=== PATIENT | female | born 1945 | race Caucasian/White ===

== ENCOUNTER 2018-09-08 12:31 | Day surgery (SDC) | payer OTHER, SELFPAY ==
[2018-09-08 13:00] VITALS: BMI 28.3
[2018-09-08] MEDS: PROPARACAINE 0.5% OPHTH SOL 2 DROPS EYE-OP (13:08)
[2018-09-08] MEDS: CATARACT EYE COMPOUND (10 DROPS/SYRINGE) 3 DROPS EYE-OP (13:13)
[2018-09-08 13:18] VITALS: BP 159/72; PULSE 63; RESP 16; TEMP 36.1; O2SAT 95
--- NOTE | 2018-09-08 13:26 | P.OP.PRE_ITS ---
Pre-operative Note Interval Note Changes: No
--- NOTE | 2018-09-08 13:26 | P.OP_ITS ---
Operative Date/Time/Diagnoses Pre-op diagnosis: Nuclear Cataract Left eye Post-op diagnosis: same Procedure & Clinicians Surgeon: Olegario Gutierres Anesthesia Type: MAC +/- and Sedation Operative Notes Procedure in detail: Patient brought to the operating suite. Tetracaine drops placed in the left eye. Patient was prepped and draped in sterile manner. Wire lid speculum was placed in the eye. Betadine drops were placed on the eye. This was irrigated. Lidocaine jelly was placed on the eye. A paracentesis port was created with a side-port blade. 0.1 mL 1% preservative free lidocaine was injected into the anterior chamber. The anterior chamber was deepened with viscoelastic. 2.6 mm keratome was used to create a temporal clear corneal incision. Cystotome and Utrata forceps were used to create continuous tear capsulorrhexis. Balanced salt solution was used to hydro dissect the nucleus. The phacoemulsification handpiece was inserted and the nucleus was removed using the stop and chop technique. The irrigation aspiration handpiece was inserted and the remaining cortex was removed. Anterior chamber was deepened with viscoelastic. An Hinkle ZCB00 intraocular lens with a power of 17.0 was injected into the capsular bag. Irrigation aspiration handpiece was inserted and the remaining viscoelastic was removed. Incision was hydrated with balanced salt solution and found to be leak free with pressure with Weck- Faith sponges. 0.1 mL Vigamox injected anterior chamber. 0.3 mL Kenalog 10 mg was injected subconjunctivally. Lid speculum was removed. The patient left the operating room in excellent condition. Complications: none Condition: stable Disposition: same day surgery
--- NOTE | 2018-09-08 13:26 | PM.PREOP ---
Pre-operative Note Interval Note Changes: No
--- NOTE | 2018-09-08 13:40 | SUR.OPER ---
Supine on eye stretcher, head on extension cradle secured with tape. Arms tucked at sides with blanket. Pillow under knees.
[2018-09-08] MEDS: CHONDROIDTIN/SOD HYALURONATE 1.05 ML SYRINGE INTRAOCULA (13:42)
[2018-09-08] MEDS: MOXIFLOXACIN OPHTH DROPS 3 ML BOTTLE 2 DROPS INJ (13:42)
[2018-09-08] MEDS: LIDOCAINE JELLY 2% 5 ML 1 APPLIC TOP (13:42)
[2018-09-08] MEDS: PHENYLEPHRINE/LIDOCAINE VIAL (OR) 0.2 ML EYE-OP (13:42)
[2018-09-08] MEDS: TRIAMCINOLONE 50 MG/5 ML VIAL INJ (13:43)
[2018-09-08] MEDS: TETRACAINE 0.5% OPHTH DROPS 15 ML 2 DROPS EYE-LEFT (13:43)
[2018-09-08] MEDS: BALANCED SALT IRRIG SOLN NO.2 500 ML, EPINEPHrine 1 MG IRR (13:43)
[2018-09-08 13:55] VITALS: BP 137/74; PULSE 61; RESP 15; TEMP 36.2; O2SAT 96
== END 2018-09-08 14:15 | disposition home or self-care (01) ==
LOC: OR 12:33
PROVIDERS: PCP Physician Assistant Medical; Visit Provider Ophthalmology
DX: H25.12 Age-related nuclear cataract, left eye (principal); J45.909 Unspecified asthma, uncomplicated; I10 Essential (primary) hypertension
CPT/HCPCS: J0171; J2250; J3010; J3301

== ENCOUNTER 2018-09-22 07:58 | Day surgery (SDC) | payer OTHER, SELFPAY ==
[2018-09-22 08:40] VITALS: BP 148/72; PULSE 63; RESP 16; TEMP 36.2; O2SAT 98; BMI 28.3
[2018-09-22] MEDS: PROPARACAINE 0.5% OPHTH SOL 2 DROPS EYE-OP (08:44)
[2018-09-22] MEDS: CATARACT EYE COMPOUND (10 DROPS/SYRINGE) 3 DROPS EYE-OP (08:45)
--- NOTE | 2018-09-22 09:43 | P.OP.PRE_ITS ---
Pre-operative Note Interval Note Changes: No
--- NOTE | 2018-09-22 09:43 | PM.PREOP ---
Pre-operative Note Interval Note Changes: No
--- NOTE | 2018-09-22 09:44 | P.OP_ITS ---
Operative Date/Time/Diagnoses Pre-op diagnosis: Nuclear cataract right eye Procedure & Clinicians Procedure: Cataract Surgery Same procedure as scheduled: Yes Surgeon: Olegario Gutierres Anesthesia Type: MAC +/- and Sedation Operative Notes Procedure in detail: Patient brought to the operating suite. Tetracaine drops placed in the right eye. Patient was prepped and draped in sterile manner. Wire lid speculum was placed in the eye. Betadine drops were placed on the eye. This was irrigated. Lidocaine jelly was placed on the eye. A paracentesis port was created with a side-port blade. 0.1 mL 1% preservative free lidocaine was injected into the anterior chamber. The anterior chamber was deepened with viscoelastic. 2.6 mm keratome was used to create a temporal clear corneal incision. Cystotome and Utrata forceps were used to create continuous tear capsulorrhexis. Balanced salt solution was used to hydro dissect the nucleus. The phacoemulsification handpiece was inserted and the nucleus was removed using the stop and chop technique. The irrigation aspiration handpiece was inserted and the remaining cortex was removed. Anterior chamber was deepened with viscoelastic. An Hinkle ZCB00 intraocular lens with a power of 16.5 was injected into the capsular bag. Irrigation aspiration handpiece was inserted and the remaining viscoelastic was removed. Incision was hydrated with balanced salt solution and found to be leak free with pressure with Weck- Faith sponges. 0.1 mL Vigamox injected anterior chamber. 0.3 mL Kenalog 10 mg was injected subconjunctivally. Lid speculum was removed. The patient left the operating room in excellent condition. Complications: none Condition: stable Disposition: same day surgery
--- NOTE | 2018-09-22 09:55 | SUR.OPER ---
Supine on eye stretcher, head on extension cradle secured with tape. Arms tucked at sides with blanket. Pillow under knees.
[2018-09-22] MEDS: CHONDROIDTIN/SOD HYALURONATE 1.05 ML SYRINGE INTRAOCULA (09:58)
[2018-09-22] MEDS: LIDOCAINE JELLY 2% 5 ML 1 APPLIC TOP (09:58)
[2018-09-22] MEDS: MOXIFLOXACIN OPHTH DROPS 3 ML BOTTLE 2 DROPS INJ (09:58)
[2018-09-22] MEDS: PHENYLEPHRINE/LIDOCAINE VIAL (OR) 0.2 ML EYE-OP (09:59)
[2018-09-22] MEDS: TETRACAINE 0.5% OPHTH DROPS 15 ML 2 DROPS EYE-RIGHT (09:59)
[2018-09-22] MEDS: TRIAMCINOLONE 50 MG/5 ML VIAL INJ (09:59)
[2018-09-22] MEDS: BALANCED SALT IRRIG SOLN NO.2 500 ML, EPINEPHrine 1 MG IRR (10:00)
[2018-09-22 10:09] VITALS: BP 147/70; PULSE 60; RESP 16; TEMP 36.2; O2SAT 97
[2018-09-22 10:28] VITALS: BP 131/71; PULSE 58; RESP 16; TEMP 37.1; O2SAT 97
== END 2018-09-22 10:36 ==
LOC: OR 07:59
PROVIDERS: PCP Physician Assistant Medical; Visit Provider Ophthalmology
DX: H25.11 Age-related nuclear cataract, right eye (principal); I10 Essential (primary) hypertension; J45.909 Unspecified asthma, uncomplicated
CPT/HCPCS: J0171; J2250; J3010; J3301

== ENCOUNTER 2019-03-03 19:28 | Observation (INO) | payer OTHER, SELFPAY ==
--- NOTE | 2019-03-03 | DI.MRI.S_ITS ---
PROCEDURE: MR STROKE Pre- and post-contrast brain MRI, non-contrast brain MR angiogram, pre- and postcontrast neck MR angiogram INDICATIONS: TIA, TIA, left hand and arm weakness TECHNIQUE: Brain: Noncontrast axial T1 spin echo, axial T2 fast spin echo, sagittal and axial FLAIR, coronal T2 fast spin echo, axial gradient echo, axial diffusion and ADC through the brain. After the administration of contrast, axial 3D VIBE of the cranial vasculature and brain. Brain MRA: Non-contrast 3-D time of flight MR angiogram, with multiple osaurjn-fszwhnkzo-ivqnkuroas (MIP) reformats performed. Neck MRA: Axial and sagittal TruFISP through the neck. Coronal dynamic MR angiogram during administration of contrast in the arterial and venous phases, with 3-dimenstional nwprxpw-brikzkfea-vbrbznqcqe (MIP) reformats constructed from subtraction images. COMPARISON: [facility], CT, CT HEAD/BRAIN WO CON, 03/03/2019, 19:49. FINDINGS: Image quality: Diagnostic, with note made of motion artifact. BRAIN: CSF spaces: Ventricles are normal in size and shape. Basal cisterns are patent. No extra-axial fluid collections. Brain: There is a small area of abnormal diffusion weighted signal within the posterior superior right frontal lobe, as on series 26 image 60. There is associated dark signal seen on the ADC map. There is developing T2-weighted signal seen within this region. Scattered areas of T2 hyperintensity can be seen. Age-appropriate brain parenchymal volume loss is seen. No intracranial bleeds or mass effects. Mar-white matter interface is normal. Brainstem appears normal. Normal intravascular flow voids are present. No abnormal intracranial enhancement. Skull and face: Calvarial marrow signal is normal. Orbits appear normal. Note is made of bilateral lens replacements. Sinuses: Sinuses and mastoids are clear. BRAIN MR ANGIOGRAM: Anterior circulation: Intracranial internal carotid arteries are normal in size and enhancement. There is a diminutive left A1 segment, with a corresponding robust right A1 segment. This is considered to be a normal developmental variant of the [place] of [place], of typically no clinical consequence. The flow within the paired anterior cerebral arteries is otherwise normal and symmetric. The flow within the middle cerebral arteries is normal and symmetric. The anterior communicating artery is seen. No stenoses, occlusions, or aneurysms. Posterior circulation: The visualized portions of the vertebral arteries demonstrate normal caliber, and join to form a normal appearing basilar artery. The flow within the posterior cerebral arteries is normal and symmetric. No stenoses, occlusions, or aneurysms. NECK MR ANGIOGRAM: Carotids: Great vessels demonstrate a conventional anatomy as they arise from the aortic arch. The origins of the common carotid arteries appear patent. The proximal left common carotid artery is not well-seen. The bifurcation regions appear normal bilaterally. The internal carotid arteries demonstrate normal course and caliber. Posterior circulation: The origins of the vertebral arteries appear patent. More superior portions of both vertebral arteries demonstrate normal course and caliber, and join to form a normal appearing basilar artery. Miscellaneous: Subclavian arteries appear patent. Pre-contrast images through the neck show no soft tissue abnormalities. IMPRESSION: BRAIN MRI: Small focus of subacute infarction involving posterior right frontal lobe superiorly. This correlates well with the left upper extremity symptoms. Note is made of age-appropriate brain parenchymal volume loss and chronic small vessel ischemic changes. BRAIN MR ANGIOGRAM: No significant intracranial arterial abnormality is seen. NECK MR ANGIOGRAM: The proximal left common carotid artery is not well-seen. This is felt most likely to be artifactual, although differential diagnosis includes a focal stenosis. As clinically appropriate, please consider a dedicated CT angiogram for further evaluation. Dictated by: Bry Ennis M.D. on 03/04/2019 at 10:13 Approved by: Bry Ennis M.D. on 03/04/2019 at 10:18
--- NOTE | 2019-03-03 | DI.ECHO.S_ITS ---
[facility] +---------+ [facility] +---------+ : : [address] : : [place], [place] : : : : [id number] : : : : Phone: [phone] Echocardiogram Report + + :Name: JEFE ACUÑA Study Date: 03/04/2019 Height: 63 in : :[facility] Exam Location: IS Weight: 155 lb : : Gender: Female BSA: 1.7 m2 : :: 1945 Age: 73 yrs BP: 145/72 mmHg: :Reason For Study: TIA : : Performed By: Dale Campos : :Referring: TEN MEIER : + + Interpretation Summary 1) Normal left ventricular thickness, size, wall motion, and systolic function (EF 60-65%). 2) Normal right ventricular size and function. 3) There is mild aortic regurgitation. 4) No prior Echo available for comparison. Procedure: A two-dimensional transthoracic echocardiogram with color flow and Doppler was performed. The study quality was technically adequate. There is no prior echocardiogram noted for this patient. The patient was in normal sinus rhythm during the exam. Left Ventricle: The left ventricle is normal in size. There is normal left ventricular wall thickness. The ejection fraction is estimated to be 60-65%. There are no focal wall motion abnormalities. Right Ventricle: The right ventricle is normal in size and function. Atria: Both atria are normal in size. The interatrial septum is intact with no evidence for an atrial septal defect. Mitral Valve: The mitral valve is normal in structure and function. There is trace mitral regurgitation. Aortic Valve: The aortic valve is trileaflet. The aortic valve opens well. There is no aortic valve stenosis. There is mild aortic regurgitation. Tricuspid Valve: The tricuspid valve is normal in structure and function. There is mild tricuspid regurgitation. The right ventricular systolic pressure is estimated to be at least 29 mmHg based on an estimated right atrial pressure of 3 mm Hg. Pulmonic Valve: The pulmonic valve is normal in structure and function. There is trace pulmonic regurgitation. Great Vessels: The aortic root is normal size. The ascending aorta is at the upper limits of normal in size. The pulmonary artery is normal size. The IVC is of normal diameter and collapses greater than 50% with a sniff. This suggests a low right atrial pressure of 3 mm Hg. Pericardium/ Pleura There is no pericardial effusion. There is no pleural effusion. MMode/2D Measurements & Calculations LVIDd: 4.4 cm LVOT diam: 2.0 cm LVIDs: 2.5 cm Ao root diam: 3.4 cm FS: 42.8 % Aortic Jxn: 2.7 cm EPSS: 0.38 cm asc Aorta Diam: 3.6 cm IVSd: 0.76 cm Ao Arch Diam (Prox Trans): 2.3 cm LVPWd: 0.71 cm LV [place]. diameter/BSA (cm/m^2): 2.6 LV sys. diameter/BSA (cm/m^2): 1.5 LA dimension: 3.2 cm RA long axis: 4.5 cm LA A2 area: 18.5 cm2 RA area: 16.9 cm2 LA A4 area: 17.5 cm2 RA vol: 54.2 ml LA length (vol): 6.0 cm RA : 31.2 ml/m2 LA vol: 45.7 ml IVC diam: 1.4 cm LA vol index: 26.3 ml/m2 Doppler Measurements & Calculations Ao V2 max: 141.2 cm/sec LVOT Max Bubba: 103.2 cm/sec Ao V2 mean: 105.4 cm/sec LV V1 max P.3 mmHg Ao max P.0 mmHg LV V1 VTI: 25.2 cm Ao mean P.7 mmHg HARITHA(I,D): 2.3 cm2 Ao V2 VTI: 35.1 cm HARITHA(V,D): 2.3 cm2 sev ratio: 0.72 HARITHA indexed to BSA (cm^2/m^2): 1.3 AI P1/2t: 781.4 msec AI dec slope: 142.9 cm/sec2 MV E max bubba: 53.2 cm/sec TR max bubba: 254.2 cm/sec MV A max bubba: 78.5 cm/sec TR max P.9 mmHg MV E/A: 0.68 PA V2 max: 70.2 cm/sec Med Peak E' Bubba: 6.9 cm/sec PA V2 mean: 49.2 cm/sec E/E' med: 7.7 PA mean P.1 mmHg Lat Peak E' Bubba: 8.2 cm/sec PA pr(Accel): 64.0 mmHg E/E' lat: 6.5 PA Accel Time: 0.04 sec E/e' average: 7.1 MV dec time: 0.34 sec SV(LVOT): 80.0 ml Reading Physician:12:59 PM
[2019-03-03 19:31] VITALS: BP 165/81; PULSE 74; RESP 16; TEMP 36.4; O2SAT 98
--- NOTE | 2019-03-03 19:38 | ED.NEUROSD ---
HPI - Neuro Symptoms/Deficit General Chief Complaint: Neuro Symptoms/Deficit Stated Complaint: Weak left arm Time Seen by Provider: 03/03/19 19:36 Source: patient Mode of arrival: ambulatory Limitations: no limitations History of Present Illness HPI Narrative: A 73-year-old female here for evaluation of left hand weakness. Patient states approximately 1 hour prior to arrival here in the emergency department she was feeding her cats and stated that she had a sudden onset of weakness in her left hand. She also thought that her left arm was weak. She denies any other symptoms at the time. She states that it did cause her to drop the cat food dish. She states that she has had decreased coordination of the left hand. This initial symptoms improved but then came back again. She states it is only slowly been improving since then. Has never had a TIA or stroke in the past. On Anticoagulants: No Related Data Home Medications Medication Instructions Recorded Confirmed CA PANTOTHENATE/FOLIC ACID/VIT 1 tab PO QDAY #0 04/10/13 09/08/18 (MULTIVITAMIN) CHOLECALCIFEROL (VITAMIN D3) 200 mg PO DAILY #0 04/10/13 09/08/18 (Vitamin D3) atenolol 50 mg PO QDAY #0 04/10/13 09/08/18 calcium acetate 667 mg PO DAILY #0 04/10/13 09/08/18 diphenhydramine HCl 50 mg PO HSP #0 04/10/13 09/08/18 felodipine 5 mg PO QDAY #0 04/10/13 hydrochlorothiazide 25 mg PO QDAY #0 04/10/13 09/08/18 ibuprofen 600 mg PO Q8HP PRN #0 04/10/13 09/08/18 albuterol sulfate 1 puff INHALATION Q4-6H PRN 09/08/18 09/08/18 ranitidine HCl 150 mg PO DAILY 09/08/18 09/08/18 Allergies Allergy/AdvReac Type Severity Reaction Status Date / Time codeine AdvReac Intermediate SEVERE Verified 09/22/18 08:52 NAUSEA/VOMITING Review of Systems Constitutional Denies fever(s), Denies frequent falls, Denies headache(s) and Reports weakness Eyes Denies change in vision ENT Ears, Nose, Mouth, and Throat: Denies vertigo, Denies dizziness, Denies headache(s) and Denies disequilibrium Cardiovascular Denies chest pain, Denies syncope and Denies dyspnea Respiratory Denies dyspnea Gastrointestinal Gastrointestinal: Denies abdominal pain, Denies nausea and Denies vomiting Genitourinary Denies dysuria Musculoskeletal Reports muscle weakness, Reports numbness and Reports tingling Integumentary/Breasts Denies rash Neurologic Denies abnormal speech, Denies confusion, Denies vertigo, Denies dizziness, Denies syncope, Denies frequent falls, Denies headache(s), Reports lack of coordination, Reports focal weakness, Denies memory loss, Reports numbness, Denies seizure-like activity, Reports tingling, Denies disequilibrium and Reports weakness Psychiatric Denies confusion and Denies memory loss Hematologic/Lymphatic Denies easy bleeding and Denies easy bruising Allergic/Immunologic Denies urticaria [facility] Medical History Hypertension (Acute) Hypothyroid (Acute) Social History household members: friend(s) Smoking Status: Never smoker Social History household members: friend(s) Smoking Status: Never smoker Exam Initial Vital Signs Initial Vital Signs: Vital Signs Temperature 97.5 F L 03/03/19 19:31 Pulse Rate 74 03/03/19 19:31 Respiratory Rate 16 03/03/19 19:31 Blood Pressure 165/81 H 03/03/19 19:31 Pulse Oximetry 98 03/03/19 19:31 Const General: cooperative, comfortable, well developed, well groomed and No acute distress Orientation: alert, awake and oriented x3 HENNY Head: normal to inspection and normocephalic Ears: hearing grossly normal bilaterally Face and sinus: normal facial exam Resp Effort & Inspection: normal respiratory effort Auscultation: clear to auscultation bilaterally Cardio Rate: regular rate Rhythm: regular rhythm Pulses: radial pulses present GI Inspection: non-distended Palpation: soft, No firm and No tender Skin Lesions: no lesions Rashes: no rashes Neuro General: alert, awake and oriented x3 Cranial Nerves: CN's II-XI intact bilaterally Cognition: normal cognition Speech: speech normal Motor: no pronator drift, No tremor, No pronator drift and strength abnormal (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 5/5 strength right upper extremity) Coordination: mnishh-rz-bmjg test abnormal (At more difficulty with finger-nose left upper extremity), uzfb-qi-yvqd test normal and abnormal rapid alternating movement UE (More difficulty with rapid alternating movements left hand.) Extrem General: normal to inspection, capillary refill normal and No edema Psych Appearance: grossly normal and well kempt Scores ABCD2 Age >= 60 years: yes Initial BP. Either SBP >= 140 or DBP >= 90.: yes Clinical features of the TIA: unilateral weakness Duration of symptoms: >= 60 minutes History of diabetes: no ABCD2 Score: 6 GCS Jonnie coma scale eye opening: Spontaneous Jonnie coma scale verbal response: Orientated Jonnie coma scale motor response: Obey commands Jonnie coma scale total score: 15 NIH Stroke Scale Level of Conciousness: Alert, keenly responsive Ask month/age: Answers both questions correctly. Open/close eyes, close hand: Performs both tasks correctly Best gaze horizontal: Normal Visual meyers: No visual loss Facial palsy: Normal symetrical movement Left arm drift: No drift for full 10 sec Right arm drift: No drift for full 10 sec Left leg drift: No drift for full 10 sec Right leg drift: No drift for full 10 sec Limb ataxia: Present in one limb Sensory on face/arms/legs: Normal, no sensory loss Best language: No aphasia, normal Dysarthria: Normal Extinction or inattention: No abnormality Total NIH Stroke scale score: 1 Course Orders Ordered: ED Orders 03/03/19 19:37 EKG-12 Lead Stat 03/03/19 19:39 CT head/brain wo con Stat 03/03/19 20:01 Basic Metabolic Panel Stat Complete Blood Count AUTO DIFF Stat Partial Thromboplastin Time Stat Prothrombin Time INR Stat Troponin I Stat Discontinued Medications Aspirin (Aspirin Ec) 325 mg PO NOW ONE Stop: 03/03/19 21:35 Last Admin: 03/03/19 21:46 Dose: 325 mg Vital Signs - 8 hr 03/03/19 19:31 03/03/19 20:56 03/03/19 21:00 Temperature 97.5 F L Pulse Rate 74 71 Respiratory Rate 16 15 22 Blood Pressure 165/81 H Blood Pressure [Right Arm] 149/71 H 142/73 H Pulse Oximetry 98 97 MDM - Neuro Symptoms/Deficit Lab Data Attestation: I reviewed the patient's lab results. Result diagrams: 03/03/19 20:01 03/03/19 20:01 Lab Results 03/03/19 03/03/19 03/03/19 Range/Units 20:01 20:01 20:01 WBC 6.7 (4.5-11.0) X10^3/uL RBC 4.13 (4.0-5.2) X10^6/uL Hgb 13.5 (12.0-16.0) g/dL Hct 39.5 (36-46) % MCV 95.5 (80-100) fL MCH 32.6 (26-34) PG MCHC 34.1 (30-36) % RDW 12.7 (11.6-14.8) % Plt Count 205 (150-400) X10^3/uL Neut % (Auto) 54.4 (50-75) % Lymph % (Auto) 29.2 (25-40) % [place] % (Auto) 9.9 (3-14) % Eos % (Auto) 5.7 H (2-4) % Baso % (Auto) 0.8 (0-2) % Neut # (Auto) 3700 (6542-9744) /uL Lymph # (Auto) 2000 (3117-7340) /uL [place] # (Auto) 700 (0-900) /uL Eos # (Auto) 400 (0-450) /uL Baso # (Auto) 100 (0-100) /uL PT 11.7 (10.1-12.7) SECONDS INR 1.0 (0.9-1.3) APTT 28 (26.4-36.2) SECONDS Sodium 139 (137-145) mmol/L Potassium 3.3 L (3.4-5.1) mmol/L Chloride 102 (98-107) mmol/L Carbon Dioxide 26 (22-32) mmol/L BUN 30 H (7-17) mg/dL Creatinine 1.20 H (0.52-1.04) mg/dL Estimated GFR 43.8 L (>60) mL/min BUN/Creatinine Ratio 25.0 H (6-22) Glucose 85 (80-110) mg/dL Calcium 10.6 H (8.4-10.2) mg/dL Troponin I < 0.012 (0.01-0.034) ng/mL Imaging Data CT scan - head: Radiologist's impression: [address] [address] [address] Scan Report Signed Patient: Carmen Contreras LMR#: [id number] : 3Acct:[id number] Age/Sex: 73 / FDate of Service: 03/03/19 Loc: ED Accession Number: [id number] Procedure: CT head/brain wo con Ordering Provider: Estuardo Baker D.O. PROCEDURE: CT HEAD/BRAIN WO CON INDICATIONS: left arm weakness TECHNIQUE: Noncontrast 4.5 mm thick angled axial sections acquired from the foramen magnum to the vertex, with coronal and sagittal reformats. For radiation dose reduction, the following was used: automated exposure control, adjustment of mA and/or kV according to patient size. COMPARISON: None. FINDINGS: Image quality: Excellent. CSF spaces: Basal cisterns are patent. No extra-axial fluid collections. The ventricles are symmetric in size and shape. Brain: No intracranial bleeds or masses. There is cerebral volume loss for age, with resultant ventricular and sulcal prominence. There are periventricular and deep white matter chronic small vessel ischemic changes. There is intracranial internal carotid artery atherosclerosis. Skull and face: Calvarium and visualized facial bones appear intact, without suspicious lesions. Sinuses: Visualized sinuses and mastoids are clear. IMPRESSION: No acute intracranial process. Dictated by: Pepe Ford M.D. on 03/03/2019 at 20:06 Approved by: Pepe Ford M.D. on 03/03/2019 at 20:09 ECG Data Attestation: I personally reviewed and interpreted this ECG as follows: Prior ECG tracings: not available for review Interpretation: Sinus rhythm LVH Ventricular rate is 71 Normal QRS Normal QTC No ST T wave changes MDM Narrative Medical decision making narrative: Patient has a low NIH score. Her only positive results was the difficulty with txsuab-qk-sfxt with her left upper extremity. She does have an elevated ABCD2 score. No indication for tPA head CT is unremarkable. discussed the case with YAMIL Campbell the night hospitalist will admit for TIA. Discuss the admission with the patient and the concerns for TIA and also the other radiology and laboratory results. She expressed understanding and agreement. Patient was given aspirin here in the emergency department. Discharge Plan Departure Patient Disposition: Admitted as Observation Clinical Impression: Transient cerebral ischemia Qualifiers: Transient cerebral ischemia type: unspecified Qualified Code(s): G45.9 - Transient cerebral ischemic attack, unspecified Admit Date/Time: 03/03/19 21:26 Admit Provider: Bora Campbell
[2019-03-03 20:07] LABS: Add Manual Diff / Slide Review NO; Basophils Absolute Auto 100 /uL (0-100); Basophils Percent Auto 0.8 % (0-2); Eosinophils Absolute Auto 400 /uL (0-450); Eosinophils Percent Auto 5.7 % (2-4); Hematocrit 39.5 % (36-46); Hemoglobin 13.5 g/dL (12.0-16.0); Lymphocytes Absolute Auto 2000 /uL (1100-4500); Lymphocytes Percent Auto 29.2 % (25-40); Mean Corpuscular HGB Conc 34.1 % (30-36); Mean Corpuscular Hemoglobin 32.6 PG (26-34); Mean Corpuscular Volume 95.5 fL (80-100); Monocytes Absolute Auto 700 /uL (0-900); Monocytes Percent Auto 9.9 % (3-14); Neutrophils Absolute Auto 3700 /uL (1500-7000); Neutrophils Percent Auto 54.4 % (50-75); Platelet Count 205 X10^3/uL (150-400); Red Blood Cell Count 4.13 X10^6/uL (4.0-5.2); Red Cell Distribution Width 12.7 % (11.6-14.8); White Blood Cell Count 6.7 X10^3/uL (4.5-11.0)
[2019-03-03 20:14] LABS: Prothrombin Time 11.7 SECONDS (10.1-12.7)
[2019-03-03 20:17] LABS: PTT Partial Thromboplastin Tim 28 SECONDS (26.4-36.2)
[2019-03-03 20:18] LABS: Blood Urea Nitrogen 30 mg/dL (7-17); Calcium 10.6 mg/dL (8.4-10.2); Carbon Dioxide 26 mmol/L (22-32); Chloride 102 mmol/L (98-107); Estimated Glomerular Filt Rate 43.8 mL/min (>60); Glucose 85 mg/dL (80-110); HEMOLYSIS < 15 (0-50); Potassium 3.3 mmol/L (3.4-5.1); Sodium 139 mmol/L (137-145)
[2019-03-03 20:30] LABS: Troponin I < 0.012 ng/mL (0.01-0.034)
[2019-03-03 20:56] VITALS: BP 149/71; PULSE 71; RESP 15; O2SAT 97
[2019-03-03 21:00] VITALS: BP 142/73; RESP 22
[2019-03-03 21:42] VITALS: BMI 27.7
[2019-03-03] MEDS: ASPIRIN EC 325 MG TABLET PO (21:46)
--- NOTE | 2019-03-03 21:51 | PC.NURSE ---
Admitting provider at bedside.
--- NOTE | 2019-03-03 21:52 | PC.NURSE ---
Patient reports left hand is feeling back to normal. Equal operations examiner noted. Reports potentially slight amount of weakness noted when testing operations examiner. Denies any other symptoms
--- NOTE | 2019-03-03 22:43 | P.HP_ITS ---
History of Present Illness Date Patient Seen: 03/03/19 Time Patient Seen: 22:00 Chief complaint: Weak left arm Narrative: Dian Lyles is a 73-year-old female patient with history of hyp ertension, hyperlipidemia, hypothyroidism and asthma who presents to the emergency department today with complaints of left arm and hand weakness. Patient had abrupt onset of loss of ability to cuff knitter with her left hand with arm weakness while she was bending over feeding her cats and found she could not hold the bowl. The episode was transient and spontaneously resolved within minutes however the same symptoms reoccurred and persisted prompting the patient to present to the emergency department. She has had no history of prior neurological events or reported cardiovascular disease. While in the emergency department her symptoms have been gradually improving. She denies any associated symptoms of headaches, visual or hearing changes, difficulty chewing or swallowing or slurred speech. She has had no fevers or chills recent cold or flu symptoms. She has had no complaints of chest pain or palpitations, shortness breath cough or wheeze. She Has no abdominal pain and denies nausea vomiting and has no diarrhea but does experience occasional constipation. She does report having frequent UTIs and is currently using estradiol vaginal cream for treatment of frequent UTIs. In the ER the patient is found to be afebrile at 97.5 with heart rate of 74, blood pressure 165/81, respirations of 16 with a 98% saturation on room air. A head CT was obtained which finds volume loss for age with prominent sulcus and diary and internal carotid atherosclerosis. She received aspirin 325 mg in the ER. The patient is admitted for further evaluation and treatment. Patient History Medical History Asthma (Acute) Dyspepsia (Acute) Frequent UTI (Acute) Hypertension (Acute) Hypothyroid (Acute) Surgical History (Updated 03/03/19 @ 22:51 by MARIAM Link) History of cataract surgery (Acute) History of ventral hernia repair (Acute) Family History (Updated 03/03/19 @ 22:54 by MARIAM Link) Father Cancer Mother Hemorrhagic cerebrovascular accident (CVA) Sister Cancer Daughter Optic nerve tumor Social History household members: friend(s) and none Smoking Status: Never smoker alcohol intake: current Family & Social History Social History: household members friend(s) Safety & Behavioral: Feels Safe in Current Yes Environment Been Physically Hurt or No Threatened By a Person Tobacco & Substance use: Smoking Status Never smoker alcohol intake frequency 0-2 drinks per day Substance Use Type does not use Comment: The patient lives alone in a single family home. She was for 53 years and has been for 6 years. Her parents are both , her father from cancer and her mother from a hemorrhagic CVA. She has a sister who is currently living in a survivor of breast cancer. She has 2 children daughter who has had an optic nerve tumor and her son who is in good health. Smoking: The patient is a nonsmoker having tried it and stopped. Alcohol: Patient consume a glass a wine nightly. Substance use: Patient denies recreational pharmaceuticals, herbal or cannabis products. Advanced directives the patient wishes to be DO NOT RESUSCITATE. She designates her son Rich Rajput to be her surrogate decision maker. Meds Home Medications Medication Instructions Recorded Confirmed Type CHOLECALCIFEROL (VITAMIN D3) 40 mg PO BID #0 04/10/13 03/03/19 History (Vitamin D3) atenolol 50 mg PO QDAY #0 04/10/13 03/03/19 History calcium acetate 667 mg PO DAILY #0 04/10/13 09/08/18 History diphenhydramine HCl 50 mg PO HSP #0 04/10/13 03/03/19 History felodipine 5 mg PO QDAY #0 04/10/13 03/03/19 History hydrochlorothiazide 25 mg PO QDAY #0 04/10/13 03/03/19 History ibuprofen 600 mg PO Q8HP PRN #0 04/10/13 03/03/19 History albuterol sulfate 1 puff INHALATION Q4-6H PRN 09/08/18 03/03/19 History ranitidine HCl 150 mg PO TID 09/08/18 03/03/19 History aspirin 325 mg PO DAILY 03/03/19 03/03/19 History beclomethasone dipropionate 1 puff INHALATION BID 03/03/19 03/03/19 History beclomethasone dipropionate [Qvar 1 puff INHALATION BID 03/03/19 03/03/19 History RediHaler] levothyroxine 50 mcg PO DAILY 03/03/19 03/03/19 History Allergies Allergy/AdvReac Type Severity Reaction Status Date / Time codeine AdvReac Intermediate SEVERE Verified 09/22/18 08:52 NAUSEA/VOMITING Review of Systems Review of Systems All systems reviewed & are unremarkable except as noted in HPI and below Exam Vital Signs (past 8 hours): - 03/03/19 19:31 03/03/19 20:56 03/03/19 21:00 Temperature 97.5 F L Pulse Rate 74 71 Respiratory Rate 16 15 22 Blood Pressure 165/81 H Blood Pressure [Right Arm] 149/71 H 142/73 H Pulse Oximetry 98 97 Oxygen Delivery Method Room Air Narrative Exam Narrative: GENERAL APPEARANCE: well developed, well nourished, in no acute distress. HEAD: symmetrical facies, atraumatic, no scalp lesions. EYES: pupils equal, round, reactive to light and accommodation, no ptosis, sclera non-icteric, extraocular movement intact no nystagmus. EARS: normal external structures, no ear pain NOSE: sinuses non tender to percussion, no rhinorrhea ORAL CAVITY: mucosa moist without lesions or exudate, palate normal, tongue in midline. THROAT: normal, no erythema, no exudate, pharynx normal, uvula midline. NECK/THYROID: neck supple, no jugular venous distention, no carotid bruit, no thyromegaly, trachea midline. LYMPH NODES: no cervical or supraclavicular lymphadenopathy. SKIN: warm and dry, no suspicious lesions, no rashes, good turgor. HEART: regular rate and rhythm, S1-S2 without murmur, no rubs or gallops, brisk capillary refill, no edema LUNGS: clear to auscultation bilaterally, no coarseness crackles or wheezing, no cough present CHEST: Symmetrical movement, no accessory muscle use, no pain to AP and lateral compression. ABDOMEN: Soft, no distention, no epigastric or abdominal tenderness on palpati on, no guarding or peritoneal signs, no organomegaly, no flank or suprapubic tenderness BACK: Normal curvature, nontender to palpation, no CVA tenderness on percussion EXTREMITIES: moves all extremities, strength is 5/5 and symmetrical, well perfused. NEUROLOGIC: AAO x4, cranial nerves II-XII grossly intact , impaired dexterity left hand, impaired [id number] with left hand, cuff knitter strength grossly equal, motor strength normal upper and lower extremities, sensory exam intact to light touch with numbness tips of bilateral great toes, hearing grossly normal to speech. PSYCH: alert, cognitive function intact, flat affect with fair eye contact, stable mood with congruent affect Objective Labs Result Diagrams: 03/03/19 20:01 03/03/19 20:01 Labs: Laboratory Results - last 24 hr 03/03/19 03/03/19 03/03/19 20: 20: 20:01 WBC 6.7 RBC 4.13 Hgb 13.5 Hct 39.5 MCV 95.5 MCH 32.6 MCHC 34.1 RDW 12.7 Plt Count 205 Neut % (Auto) 54.4 Lymph % (Auto) 29.2 Bledsoe % (Auto) 9.9 Eos % (Auto) 5.7 H Baso % (Auto) 0.8 Neut # (Auto) 3700 Lymph # (Auto) 2000 [place] # (Auto) 700 Eos # (Auto) 400 Baso # (Auto) 100 PT 11.7 INR 1.0 APTT 28 Sodium 139 Potassium 3.3 L Chloride 102 Carbon Dioxide 26 BUN 30 H Creatinine 1.20 H Estimated GFR 43.8 L BUN/Creatinine Ratio 25.0 H Glucose 85 Calcium 10.6 H Troponin I < 0.012 Assessment & Plan Assessment & Plan narrative: This is a sin 3-year-old female who presents to the emergency department for left arm and hand weakness that is resolving. 1. Transitory ischemic attack, present on admission -patient with acute onset of symptoms in 2 distinct episodes today, the 1st brief lasting minutes the 2nd persisting for hours but improving -no prior history of neurological events or cardiovascular disease. -persistent diminished dexterity left hand having difficulty grasping holding a glass of water. Remainder of neurological exam is negative -CT scan is negative for intracranial pathology -will obtain MR stroke and echocardiogram -will obtain lipid panel and start atorvastatin 40 mg daily -patient reports taking aspirin 325 mg daily and received 1 dose in the emergency department. 2. Hypertension, present on admission, chronic -admission blood pressure is 165/81 and upon arrival to the floor 142/73. -patient denies headache or shortness of breath chest pain or palpitations. -will continue home medications of atenolol 50 mg daily and felodipine 5 mg daily 3. Urinary tract infections, chronic -patient reports frequent UTIs but denies symptoms of burning urgency or frequency but does have occasional incontinence. -apparent recent treatment for UTI, will obtain urinalysis. -patient reports using estradiol vaginal cream which has helped with UTI prevention, consult to pharmacy regarding systemic absorption of estradiol being complex set in the patient's symptoms. Per pharmacy resources application of vaginal estradiol does not exceed normal circulating hormone levels. 4. Mild persistent asthma, chronic -patient without wheezing and has a pulse ox of 98% on room air -patient's symptoms managed well with Qvar and has an albuterol rescue inhaler, will continue QVAR inhaler twice daily 5. Hypothyroidism, chronic -continue patient's home regimen of levothyroxine 50 mcg daily The patient is admitted to the hospital due to severity of symptoms and risk for complications. The patient is admitted as an outpatient with expected length stay less than 2 midnights. Time Spent With Patient Time with patient: 25 - 35 minutes Scores GCS [place] coma scale eye opening: Spontaneous [place] coma scale verbal response: Orientated Jonnie coma scale motor response: Obey commands Jonnie coma scale total score: 15 ABCD2 Age >= 60 years: yes Initial BP. Either SBP >= 140 or DBP >= 90.: yes Clinical features of the TIA: unilateral weakness Duration of symptoms: >= 60 minutes History of diabetes: no ABCD2 Score: 6 NIHSS Level of Conciousness: Alert, keenly responsive Ask month/age: Answers both questions correctly. Open/close eyes, close hand: Performs both tasks correctly Best gaze horizontal: Normal Visual meyers: No visual loss Facial palsy: Normal symetrical movement Left arm drift: No drift for full 10 sec Right arm drift: No drift for full 10 sec Left leg drift: No drift for full 10 sec Right leg drift: No drift for full 10 sec Limb ataxia: Absent Sensory on face/arms/legs: Normal, no sensory loss Best language: No aphasia, normal Dysarthria: Normal Extinction or inattention: No abnormality Total NIH Stroke scale score: 0
[2019-03-03 23:00] VITALS: O2SAT 97
[2019-03-04] VITALS (11 sets, daily range): BP systolic 111–150; BP diastolic 64–78; PULSE 67–84; RESP 14–17; TEMP 36.3–37.1; O2SAT 93–98
[2019-03-04] MEDS: SODIUM CHLORIDE 0.9% 1,000 ML 50 ML IV (01:08)
[2019-03-04 01:39] LABS: Bacteria Urine None Seen; WBC Urine None Seen (0-5/HPF)
[2019-03-04 01:40] LABS: Appearance Urine UA CLEAR; Bilirubin Urine UA NEGATIVE (NEGATIVE); Color Urine UA YELLOW; Glucose Urine UA NEGATIVE (Negative); Ketones Urine UA NEGATIVE (NEGATIVE); Leukocyte Esterase Urine UA NEGATIVE (NEGATIVE); Nitrite Urine UA NEGATIVE (Negative); Occult Blood Urine UA TRACE-LYSED (Negative); Protein Urine UA NEGATIVE (Negative); Urobilinogen Urine UA 0.2 E.U./dL (0.2); pH Urine UA 6.5 (4.5-8.0)
[2019-03-04 01:41] LABS: RBC Urine 0-1/HPF (0-5/HPF); Squamous Epithelial Cell Urine 0-1 /HPF (0-5/HPF)
[2019-03-04 01:42] LABS: Culture Indicated Urine Cult Not Indicated
[2019-03-04] MEDS: POTASSIUM CHLORIDE 40 MEQ in SODIUM CHLORIDE 0.9% 500 ML 100 ML IV (04:13)
--- NOTE | 2019-03-04 04:18 | PC.NURSE ---
Shift note: Received pt from evening shift. Assessment notable for NIH of 1, hypertension on VS, and weakness to right hand and arm. Reported lab value of K: 3.3 to SKIVER HAND, he ordered 40meq K-rider. 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 Ask pt if she was okay attempting IV K-rider if it is infused at a slower rate (100ml/hr vs 130ml/hr) which she agreed to try. Pt has a 22g IV catheter in left wrist with few alternate sites to choose from so infusion will be watched slowly and pt agrees to report an changes to IV site or pain with infusion. Will notify [facility] that infusion was done at reduced rate.
[2019-03-04] MEDS: PANTOPRAZOLE 20 MG TABLET PO (06:04)
[2019-03-04 06:12] LABS: Alanine Aminotransferase 27 IU/L (9-52); Albumin Globulin Ratio 1.8 (1.0-2.8); Alkaline Phosphatase 53 U/L (38-126); Aspartate Aminotransferase 30 IU/L (14-36); BUN Creatinine Ratio 23.3 (6-22); Bilirubin Total 0.5 mg/dL (0.2-1.3); Blood Urea Nitrogen 21 mg/dL (7-17); Calcium 9.5 mg/dL (8.4-10.2); Carbon Dioxide 28 mmol/L (22-32); Chloride 103 mmol/L (98-107); Estimated Glomerular Filt Rate > 60.0 mL/min (>60); Globulin 2.2 g/dL (1.7-4.1); Glucose 89 mg/dL (80-110); HEMOLYSIS < 15 (0-50); Potassium 3.2 mmol/L (3.4-5.1); Sodium 138 mmol/L (137-145); Total Protein 6.2 g/dL (6.3-8.2)
[2019-03-04 06:50] LABS: Cholesterol 180 mg/dL (140-199); HDL Cholesterol 45 mg/dL (40-60); LDL Cholesterol Calculated 105 mg/dL (<100); Triglycerides 148 mg/dL (35-150)
[2019-03-04] MEDS: BECLOMETHASONE 80 MCG INH 10.6 GM 1 PUFF INH (08:47)
--- NOTE | 2019-03-04 09:15 | PT.IIE ---
Surgical History (Last Updated 03/03/19 @ 22:51 by MARIAM Link) History of cataract surgery (Acute) History of ventral hernia repair (Acute) Medical History (Last Reviewed 03/03/19 @ 22:50 by MARIAM Link) Asthma (Acute) Dyspepsia (Acute) Frequent UTI (Acute) Hypertension (Acute) Hypothyroid (Acute) Physical Therapy Inpatient Evaluation/Re-Eval M1 PT/OT-IP Prior Functional Status Start: 03/04/19 12:25 Freq: NEEDED Status: Active Protocol: Document 03/04/19 09:15 AB (Rec: 03/04/19 12:40 AB [id number]) Medical Review Prior Functional Status Medical History Reviewed Yes Communication able to make needs known Mobility and Gait stated that she is independent with all mobilities and ambulation without AD Social History Household Members none Living Arrangements House Number of Floors (Floors) One Floor Number of Stairs To Enter/Railing? 2 steps with 1 rail Home Environment High Toilet Walk in Shower Home Equipment Grab Bars Near Toilet Grab Bars In Shower Employment Status Retired M2 PT-IP Current Condition Start: 03/04/19 12:25 Freq: NEEDED Status: Active Protocol: Document 03/04/19 09:15 AB (Rec: 03/04/19 12:40 AB [id number]) Physical Therapy Current Condition Current Condition Evaluation Date 03/04/19 Treatment Diagnosis TIA; difficulty in walking Onset Date 03/03/19 M3 PT-IP Subjective Start: 03/04/19 12:25 Freq: NEEDED Status: Active Protocol: Document 03/04/19 09:15 AB (Rec: 03/04/19 12:40 AB [id number]) Subjective Physical Therapy Visit Type Type Initial Evaluation Visit Start Time 09:15 Visit Stop Time 09:40 Total Visit Minutes 25 Number of INSEAM LEVELER Visits 0 Physical Therapy Visit Comments Patient Comments pt agreeable to do PT Therapy Pain Assessment Pain Present Pain Present Denied Pain M4 PT-IP Mobility and Gait Start: 03/04/19 12:25 Freq: NEEDED Status: Active Protocol: Document 03/04/19 09:15 AB (Rec: 03/04/19 12:40 AB [id number]) PT-Bed Mobility Assessment Supine to Sit Supine to Sit Independent Sit to Supine Sit to Supine Independent Scooting Scooting to Edge of Bed Independent PT-Transfer Assessment Sit to and From Stand Sit to and from Stand Standby Assistance Equipment Transfer Assistive Device None Gait Belt Orthotic/Prosthetic Devices or Brace: No Transfers Transfer Destination Bed Transfer Technique pt ambulated to the bed without AD Transfer Ability Level of Assist Standby Assistance Gait Assessment Gait Gait Assistance Required: Standby Assistance Distance (Feet) 125 Able to Maintain Weight Bearing Status Yes During Gait Assistive Devices Assistive Device None Gait Belt Straight Cane Orthotic/Prosthetic Devices or Brace: No Factors Limiting Gait Function Factors Limiting Gait Function Decreased Activity Tolerance Poor Balance Comments Gait Comments pt ambulated without AD ~ 125 ft requiring SBA and pt presents with unsteady gait with gait deviation and unable to walk a straight path. pt stated that she is lightheaded . BP 144/70. Assessed ambulation using SPC and pt completed ~ 40 ft SBA with less unsteadiness and gait deviation. pt stated that she can buy a SPC if needed. Stair Climbing Assessment Evaluation Level of Assist On Stairs Standby Assistance Devices Stair Climbing Assistive Devices Left Railing Technique/Endurance Stair Climbing Direction Ascend and Descend Stair Climbing Technique Step to Step Number of Steps Climbed 1 Query Text: Stair Climbing Set # Repetitions (reps) 2 PT-Balance Assessment Sitting Balance and Reactions Static Sitting Balance Ability Good Dynamic Sitting Balance Ability Good Standing Balance and Reactions Static Standing Balance Ability Good Dynamic Standing Balance Ability Fair Device Used without AD M5 PT-IP Objective Assessments Start: 03/04/19 12:25 Freq: NEEDED Status: Active Protocol: Document 03/04/19 09:15 AB (Rec: 03/04/19 12:40 AB [id number]) Orientation Orientation/Cognition Level of Alertness Alert Orientation Name Age Place Situation Language Function Ability No Deficits Noted Gross Range of Motion Lower Extremity ROM Assessment Within Functional Limits Strength Lower Extremity Strength Assessment Bilaterally Impaired Knee 4-/5 Coordination Assessment Gross Coordination Gross Coordination WNL Sensation Assessment Sensation Gross Sensation WNL Muscle Tone Muscle Tone WNL Yes M6 PT-IP Treatment Start: 03/04/19 12:25 Freq: NEEDED Status: Active Protocol: Document 03/04/19 09:15 AB (Rec: 03/04/19 12:40 AB [id number]) Physical Therapy Treatment Education Education Provided Safety M7 PT-IP Assessment and Plan Start: 03/04/19 12:25 Freq: NEEDED Status: Active Protocol: Document 03/04/19 09:15 AB (Rec: 03/04/19 12:40 AB [id number]) PT Summary Assessment and Plan Potential Rehabilitation Potential Good Status of Condition at Evaluation Stable Summary Impairments Pain Strength Balance Transfers Gait Activity Tolerance Assessment Summary pt requiring SBA with mobility and presents with unsteady gait. pt continue PT for standing balance/tolerance and ambulation training. pt is able to ambulate short distance without AD but will be safer with use of SPC for long distance ambulation. Goals Transfer Goal Independent Gait Goal Independent Gait Distance 250 Other Goals up/down 2 steps with 1 rail SBA Days to Meet Goals 3 Frequency of Treatment Frequency Of Treatment Once a Day Treatment Plan Physical Therapy Treatment Plan Bed Mobility Training Transfer Training Gait Training Therapeutic Exercise Balance Retraining Discharge Planning Hot or Cold Pack Neuromuscular Re-ed Coordination Retraining Manual Therapy Recommendations To Nursing Amount of Assist Needed 1 Person Assist Discharge Recommendations PT Discharge Recommendations Home with Assistance Outpatient PT Equipment Needed for Home Before SPC: pt stated that she will Discharge buy one
[2019-03-04] MEDS: ASPIRIN 325 MG TABLET PO (09:47)
[2019-03-04] MEDS: ATENOLOL 50 MG TABLET PO (09:47)
[2019-03-04] MEDS: LEVOTHYROXINE 50 MCG TABLET PO (09:48)
[2019-03-04] MEDS: hydroCHLOROthiazide 25 MG TABLET PO (09:48)
[2019-03-04] MEDS: ENOXAPARIN 40 MG/0.4 ML SYRINGE SUBCUT (09:50)
[2019-03-04] MEDS: FELODIPINE ER 5 MG TAB PO (09:51)
--- NOTE | 2019-03-04 11:50 | PC.NURSE ---
Day Shift- Pt A&OX4, flat affect, cooperative, able to make needs known using call light. OOB to chiar, ambulated with PT using cane to right hand. Pt felt light-headed prior to ambulation and did not increase with ambulation out in hallways. NIH score is 2. Pt did have mild weakness to left hand conference planner compared to right, moderate to strong conference planner. Initially denied any numbness/tingling to left hand/arm with this writers assessment. When OT asking pt, pt states very mild to fingers, less than yesterday. Pt did also have mild slurring when assessing stroke scale sentences and word list. Pt agreed with this and states she does not normally having slurring when at home. Pt to MRI via wheelchair at 1025 and back at 1100. ECHO started at 1110.
--- NOTE | 2019-03-04 11:51 | SLP.IPNOTE ---
Screened pt's speech, language and swallowing ability. Pt's speech clear, no s/sx aphasia no s/sx dysphagia. No skilled ST services indicated at this time.
--- NOTE | 2019-03-04 14:50 | P.PN_ITS ---
Subjective Date Patient Seen: 03/04/19 Interval history: 73-year-old female with subacute right frontal lobe CVA. Patient presented yesterday having driven herself to the hospital with left hand weakness and some incoordination. She had some mild slurring of her speech. The patient had a head CT which was unremarkable. It her brain MRI did confirm a subacute right frontal lobe CVA. Patient has 5 courses 1 done davies several dogs and cats and [place] [address] [place] She drove herself here. She was evaluated by PT and OT. They recommending 24 hour care for her for the 1st few days before she returns to complete independent living. She has no significant weakness in the left hand. She has some decreased pinch strength in the left hand. The patient states she has been taking aspirin daily for years. Exam Vital Signs (past 8 hours): - 03/04/19 08:00 03/04/19 08:47 03/04/19 09:35 Temperature 97.3 F L Pulse Rate 74 78 Respiratory Rate 16 14 Blood Pressure 131/78 Pulse Oximetry 97 93 95 03/04/19 09:51 03/04/19 11:48 Temperature 97.8 F Pulse Rate 75 68 Respiratory Rate 16 Blood Pressure 145/75 H 130/64 Pulse Oximetry 98 Oxygen Delivery Method Room Air Oxygen Flow Rate 0 Narrative Exam Narrative: Pleasant female resting comfortably in no obvious distress Lungs: Clear to auscultation Cardiac exam: Regular rate and rhythm normal S1-S2 Extremities: No edema Neuro exam: No facial droop, mild slurring of her speech strength symmetric and equal in the upper extremities and lower extremity, sensation grossly intact reflexes are brisk and equal Objective Labs Result Diagrams: 03/03/19 20:01 03/04/19 05:21 Labs: Laboratory Results - last 24 hr 03/03/19 03/03/19 03/03/19 20:01 20:01 20:01 WBC 6.7 RBC 4.13 Hgb 13.5 Hct 39.5 MCV 95.5 MCH 32.6 MCHC 34.1 RDW 12.7 Plt Count 205 Neut % (Auto) 54.4 Lymph % (Auto) 29.2 [place] % (Auto) 9.9 Eos % (Auto) 5.7 H Baso % (Auto) 0.8 Neut # (Auto) 3700 Lymph # (Auto) 2000 Sullivan # (Auto) 700 Eos # (Auto) 400 Baso # (Auto) 100 PT 11.7 INR 1.0 APTT 28 Sodium 139 Potassium 3.3 L Chloride 102 Carbon Dioxide 26 BUN 30 H Creatinine 1.20 H Estimated GFR 43.8 L BUN/Creatinine Ratio 25.0 H Glucose 85 Calcium 10.6 H Total Bilirubin AST ALT Alkaline Phosphatase Troponin I < 0.012 Total Protein Albumin Globulin Albumin/Globulin Ratio Triglycerides Cholesterol LDL Cholesterol, Calc HDL Cholesterol Urine Color Urine Appearance Urine pH Ur Specific [place] Urine Protein Urine Glucose (UA) Urine Ketones Urine Occult Blood Urine Nitrate Urine Bilirubin Urine Urobilinogen Ur Leukocyte Esterase Urine RBC Urine WBC Ur Squamous Epith Cells Urine Bacteria Ur Culture Indicated? 03/04/19 03/04/19 03/04/19 00:45 05:21 05:21 WBC RBC Hgb Hct MCV MCH MCHC RDW Plt Count Neut % (Auto) Lymph % (Auto) [place] % (Auto) Eos % (Auto) Baso % (Auto) Neut # (Auto) Lymph # (Auto) [place] # (Auto) Eos # (Auto) Baso # (Auto) PT INR APTT Sodium 138 Potassium 3.2 L Chloride 103 Carbon Dioxide 28 BUN 21 H Creatinine 0.90 Estimated GFR > 60.0 BUN/Creatinine Ratio 23.3 H Glucose 89 Calcium 9.5 Total Bilirubin 0.5 AST 30 ALT 27 Alkaline Phosphatase 53 Troponin I Total Protein 6.2 L Albumin 4.0 Globulin 2.2 Albumin/Globulin Ratio 1.8 Triglycerides 148 Cholesterol 180 LDL Cholesterol, Calc 105 H HDL Cholesterol 45 Urine Color Yellow Urine Appearance Clear Urine pH 6.5 Ur Specific [place] 1.020 Urine Protein Negative Urine Glucose (UA) Negative Urine Ketones Negative Urine Occult Blood Trace-lysed Urine Nitrate Negative Urine Bilirubin Negative Urine Urobilinogen 0.2 Ur Leukocyte Esterase Negative Urine RBC 0-1/hpf Urine WBC None seen Ur Squamous Epith Cells 0-1 /hpf Urine Bacteria None seen Ur Culture Indicated? Cult not indicated Assessment & Plan (1) Hypothyroidism: Problem details: Hypothyroidism, chronic will continue usual medications. Current visit: Yes Status: Acute (2) Hypertension: Problem details: Hypertension, chronic, present on admission given her history of CVA would sw itch her to an WANDA-inhibitor and decrease and eliminate her calcium channel malachi. Current visit: Yes Status: Acute (3) Acute CVA (cerebrovascular accident): Problem details: Patient presented with an acute right frontal CVA, present on admission. This is a failed aspirin as she was taking aspirin daily. Will start her on Plavix 75 mg daily. Will continue with physical therapy occupational therapy at this time. She will remain on telemetry. Will look for evidence of arrhythmia. Echocardiogram showed no embolic focus. Current visit: Yes Status: Acute Assessment & Plan narrative: PT OT have recommended outpatient physical therapy and occupational therapy for the patient. She will need someone to be at home with her for the next several days. The patient has been advised not to drive for 2 weeks.
--- NOTE | 2019-03-04 14:54 | CM.DPC ---
Addendum entered by Atiya Casey LPN 03/04/19 15:41: Met now with pt as planned. Introduced self and role. Pt confirms that she is getting some increased function in her L arm/hand but not like it was before the stroke. She is needing a cane and PT notes thus far indicate she is not at baseline. OT notes are not yet available. Pt says she thinks Leida/OT was recommending outpt OT but she is not sure (expect is likely HH as pt does admit she could not drive herself to appts like she is now. Pt clarifies her living situation: She does live in her own home. Boards horses and has help for the times she is unable to do the work of caring for them herself. she has 2 cats, 3 dogs and a mini donkey. She says her son Rich, who lives in [place], does help out with the dogs and cats if need be. She is not currently concerned re the care of her animals and is agreeable to continuing on in the hospital until she is stable and her d/c plan is clearer. She says the doctor thought she might go this morning but that seems to have changed. Asked about POA: pt cannot recall, thinks there may be some paperwork somewhere. Seems to struggle a bit when she has to recall information. She does say her son Rich is her family contact. She also has a daughter Ally who lives in [place] and is aware that she admitted to the hospital last night. Attempt to update Dr. Mejias but she is currently on a conference call. P: will follow up tomorrow. Dr. Jhaveri is expected to be here as hospitalist tomorrow. Original Note: Discharge Planning/Care Management DCP: assessment: case received, EMR reviewed and discussed in Team Rounds. Pt is a 73 year old female who admitted late last night to care of hospitalist team. Payer: [employer] [facility] PCP: Alia Brown Admission status: In review per UR BETY Kathleen after her discussion with Dr. Mejias. [facility] planned a screen: done and cleared. PT and OT were ordered. A check in now of BETY Ellis's notes and PT Nadine's eval shows pt with continued deficits on L and with gait also affected. Went to room now to meet pt. Noted she was in process of cognitive testing by OT LEIDA. WB in pt's room updated and will check in with pt after Leida completes her session. Dr. Mejias has not yet written her note but is being updated by BETY Ellis. Concerns noted thus far: pt lives alone. Drove herself from [place] to hospital and plans to drive herself home She is not currently at baseline. Has a son Rich who apparently is in [place] and may be her POA...will check further when pt is available. CM Discharge Assessment Start: 03/04/19 14:53 Freq: Status: Active Protocol: Document 03/04/19 14:53 ITV (Rec: 03/04/19 14:54 ITV [id number]) Discharge Planning Assessment Advance Directives? Yes History Provided By Patient Medical Record Prior Living Arrangements House Household Members none Type of transporation used prior to Drives own vehicle admit Whiteboard Updated in Patient Room with Yes name and ext. # of Orthopedic Tech Review Status In Process Next Review Type Continued Stay Review
--- NOTE | 2019-03-04 14:58 | OT.IP.EVAL ---
Current Diagnoses Hypothyroidism, unspecified (03/03/19) Essential (primary) hypertension (03/03/19) Cerebral infarction, unspecified (03/03/19) Past Medical History (Last Reviewed 03/03/19 @ 22:50 by MARIAM Link) Asthma (Acute) Dyspepsia (Acute) Frequent UTI (Acute) Hypertension (Acute) Hypothyroid (Acute) Surgical History (Last Updated 03/03/19 @ 22:51 by MARIAM Link) History of cataract surgery (Acute) History of ventral hernia repair (Acute) Occupational Therapy Inpatient Evaluation/Re-Eval M1 PT/OT-IP Prior Functional Status Start: 03/04/19 12:25 Freq: NEEDED Status: Active Protocol: Document 03/04/19 14:58 PJM (Rec: 03/05/19 08:13 PJM [email or web address]) Medical Review Prior Functional Status Medical History Reviewed Yes Diet/Fluid Consistency Regular Communication WNL Mobility and Gait Pt stated that she is independent with all mobilities and ambulation without AD. Activities of Daily Living and IADL's Pt stated that she is independent with all self care , IADLS, driving. Pt [place] and cars for several dogs, cats, mini donkey and her horse. She does yard work and mows lawn on riding mower. Social History Household Members none Living Arrangements House Number of Floors (Floors) One Floor Number of Stairs To Enter/Railing? two with rail to enter home Home Environment High Toilet Walk in Shower Home Equipment Grab Bars Near Toilet Grab Bars In Shower Employment Status Retired Additional Social History Comment Pt has no DME at home M2 OT-IP Current Condition Start: 03/05/19 07:23 Freq: Status: Active Protocol: Document 03/04/19 14:58 PJM (Rec: 03/05/19 08:13 PJM [email or web address]) Occupational Therapy Current Condition Current Condition Evaluation Date 03/04/19 Treatment Diagnosis decreased L hand strength, dexterity, slowed processing s /p R frontal stroke Diagnosis Onset Date 03/03/19 Post Operative Precautions Other Precautions mild fall risk M3 OT- IP Subjective and Pain Start: 03/05/19 07:23 Freq: Status: Active Protocol: Document 03/04/19 14:58 PJM (Rec: 03/05/19 08:13 PJM [email or web address]) OT- Subjective Occupational Therapy Visit Type Type Initial Evaluation Visit Start Time 13:34 Visit Stop Time 14:58 Total Visit Minutes 84 Notes Discussed results of assessment with Dr Mejias and PAyaz. Occupational Therapy Visit Comments Patient Comments I was planning to drive myself home today. Patient/Caregiver Goals to get home as soon as possible to care for her animals OT Pain Assessment Pain When Pain Assessed After Treatment Pain Present Pain Present Denied Pain M4 OT- IP ADL's Start: 03/05/19 07:23 Freq: Status: Active Protocol: Document 03/04/19 14:58 PJM (Rec: 03/05/19 08:13 PJ [email or web address]) OT [id number] General Evaluation Self-Feeding Ability Independent OT ADL-Grooming General Evaluation Grooming Ability Standby Assistance Areas Needing Assistance Combing/Brushing Hair Comments OT Grooming Comments standing at sink with no loss of balance noted OT ADL-Oral Care General Eval Oral Care Ability Standby Assistance Areas of Assistance Brushing Teeth Devices Oral Care Devices Toothbrush Comments Oral Care Comments standing at sink with no loss of balance noted OT ADL-Dressing General Eval Upper Body Dressing Ability Independent Lower Body Dressing Ability Independent Areas Needing Assistance Socks Comments OT Dressing Comments further assessment to follow OT ADL-Toileting Comments OT Toileting Comments did not occur this session OT ADL-Bathing Comments OT Bathing Comments to be assessed; pt normally stands to shower M5 OT- IP IADL's Start: 03/05/19 07:23 Freq: Status: Active Protocol: Document 03/04/19 14:58 PJM (Rec: 03/05/19 08:13 PJ [email or web address]) OT-Instrumental Activities of Daily Living Deficits IADL Deficits Identified Deficits Home Safety Awareness Awareness of Need for Assistance at Home Decreased Awareness Ability to Problem Solve Emergency Able to Problem Solve Situations Home Safety Comments Pt planned to drive immediately, some decreased insight into current deficits. 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 Pt completed Trails B in 120 sec (norm is < 85 sec) indicating moderate impairment. Pt also made 3 sequencing errors. This indicates slowed speed of processing and difficulty with divided attention. Discussed results with Dr Mejias, and she suggests pt not drive for 2 weeks. M6 OT- IP Functional Cognition Start: 03/05/19 07:23 Freq: Status: Active Protocol: Document 03/04/19 14:58 PJM (Rec: 03/05/19 08:13 PJM [email or web address]) Cognitive Factors Limiting Selfcare Function Cognitive Ability Level of Alertness Alert Patient Orientation Name Age Birthday Month Date Year Day of Week Place Situation Attention Span Ability Capable of Focused Attention Capable of Sustained Attention Ability to Follow Commands Able to Follow Multi-Step Commands Memory Description No Deficits Noted Safety Awareness Underestimates Need for Assistance Cognitive Comments Cognitive Assessment Comments Pt alert and oriented, good historian with no obvious memory deficits noted. Pt presents with flat affect and minimizing residual deficits from stroke. OT- Vision and Hearing OT- Hearing Assessment OT- Hearing Assessment WFL OT- Vision Assessment Visual Acuity WFL Glasses For Reading Visual Attentiveness WFL Occular Pursuits WFL Visual Hou WFL Visual Spacial Neglect Not Applicable Vision Assessment Comments Pt s/p B cataract surgery M7 OT- IP Mobility and Balance Start: 03/05/19 07:23 Freq: Status: Active Protocol: Document 03/04/19 14:58 PJM (Rec: 03/05/19 08:13 PJM [email or web address]) OT-Transfer Assessment Sit to and From Stand Sit to and from Stand Standby Assistance 1 Person Assistance Transfers Transfer Ability Standby Assistance 1 Person Assistance Technique Transfer Destination Chair Transfer Technique Stand Step Pivot Devices Transfer Assistive Devices Straight Cane Comments Mobility Comments see P.T. report for further details OT- Gait Assessment Gait Gait Assistance Required: Standby Assistance Distance (Feet) 20 Comments Gait Ability Comments see P.T. report for further details OT- Balance Assessment Sitting Balance and Reactions Static Sitting Balance Ability Good Dynamic Sitting Balance Ability Good Standing Balance and Reactions Static Standing Balance Ability Good Comments Other Balance Tests/Deviations/Treatment see P.T. report for further : details M8 OT- IP Objective Assessments Start: 03/05/19 07:23 Freq: Status: Active Protocol: Document 03/04/19 14:58 PJM (Rec: 03/05/19 08:13 PJM [email or web address]) OT Gross Range of Motion Upper Extremity Range of Motion Assessment Within Functional Limits OT Strength Upper Extremity Strength Assessment Left Impaired Shoulder R 5/5 L 5/5 Elbow R 5/5 L 5/5 flex, ext Forearm R 5/5 L 5/5 Wrist R 5/5 L 4+/5 ext Hand R WNL L Impaired tip and palmar pinch strength Hand Tool Sharpener Strength Hand Dominance Right Comments Strength Comments R Gross Grasp: 40 (norm 30-59) L Gross Grasp: 26 (norm 24-55) R Tip Pinch: 7 (norm 5.5-13.5) L Tip Pinch: 2 (norm 4.5-12.5) R Palmar Pinch: 9 (norm 4.5-13) L Palmar Pinch 3 (norm 3.5-12) R Lateral Pinch 13 (norm 7-14) L Lateral Pinch 10 (norm 6-13) OT- Coordination Assessment Upper Extremity Finger to Nose Test Left UE Impaired Finger Tapping Test Left UE Impaired Comments Coordination Comments Gross and fine motor rapid alternating movements significantly slower in LUE/ hand. 9-Hole Peg Hand Test Hand Left Scoring Time 36 Interpretation Impaired Norm For Patients Age/Sex 18-35 seconds Right Scoring Time 21 Interpretation Within Normal Range Norm For Patients Age/Sex 17-31 seconds OT-Muscle Tone Assessment Muscle Tone WNL No Muscle Tone Location Left Upper Extremity Type of Tone Hypertonicity Flexor Severity of Tone Mild Lore Grade Scale Grade 1 Comments Muscle Tone Comments Pt has decreased isolated finger motion in L hand, especially in IP extension with MP hyperxtension noted resulting in slight clawing of L hand. She had difficulty keeping index and middle fingers positioned on pinch gauge for forceful tip and palmar pinch. OT Sensation Assessment Location Left Hand Light Touch Intact/Normal Proprioception (Position) Intact/Normal Comments Summary Comments Pt detects and localizes all light touch in LUE/hand but reports mild subjective decrease compared to R hand. Edema Edema Absent M9 OT- IP Assessment and Plan Start: 03/05/19 07:23 Freq: Status: Active Protocol: Document 03/04/19 14:58 PJM (Rec: 03/05/19 08:13 PJM [email or web address]) OT Summary Assessment and Plan Potential Rehabilitation Potential Excellent Analytic Complexity at Evaluation Moderate Summary OT Impairments Range of Motion Strength Balance Coordination Sensation Tone Toileting Bathing Toilet Transfers Shower Transfers Assessment Summary Moderate complexity OT assessment completed. Extra time needed for thorough testing of relatively subtle L hand functional deficits and subtle cognitive deficits. Pt currently has impairments in L hand strength, dexterity, isolated movement with mild flexion synergy noted in L hand resulting in clawing of hand with MP hyperextension compared with lack of active IP extension. Pt also has decreased speed of processing and divided attention Trails B test and Dr Mejias has recommended she not drive for 2 weeks. Note pt needs to be completely independent with all functional mobility, self care and IADLS to return home alone to [place] with several pets, and horse to care for. Pt has some decreased insight into Pt will benefit from 1-2 additional OT tx's here to address goals below and then recommend out pt OT services. Goals Grooming Goal Independent Dressing Goal Independent Toileting Goal Independent Bathing Goal Independent Toilet Transfer Goal Independent Shower Transfer Goal Independent Patient/Caregiver Education Goal Demonstrate Energy Conservation and Pacing OT-Other Goals Pt to demonstrate understanding of L hand strengthening/coordination home exercise program. Pt to verbalize understanding of potential home safety issues and adapted IADL techniques. Pt will identify alternative transport options. Days to Meet Goals 2 Frequency of Treatment Frequency Of Treatment Once a Day Treatment Plan OT Treatment Plan ADL Training Functional Cognition Training Functional Mobility Neuromuscular Re-education Therapeutic Exercises Patient/Family Education Discharge Planning Discharge Recommendations OT Discharge Recommendations Home with Assistance Other Discharge Recommendations No driving for [address] Mejias. Home Equipment Needs ? shower seat
[2019-03-04] MEDS: ATORVASTATIN 20 MG TABLET 40 MG PO (20:57)
[2019-03-05 00:40] VITALS: O2SAT 96
[2019-03-05 03:35] VITALS: BP 131/62; PULSE 69; RESP 16; TEMP 36.4; O2SAT 97
--- NOTE | 2019-03-05 04:13 | PC.NURSE ---
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 Was able to lift both legs off bed and held left leg up for about 5-7 seconds. The right was up for the full 10 seconds with no drift.
[2019-03-05 05:52] VITALS: PULSE 67; RESP 12; O2SAT 97
[2019-03-05] MEDS: BECLOMETHASONE 80 MCG INH 10.6 GM 1 PUFF INH (05:52)
[2019-03-05] MEDS: PANTOPRAZOLE 20 MG TABLET PO (06:50)
[2019-03-05] MEDS: CLOPIDOGREL 75 MG TABLET PO (08:32)
[2019-03-05] MEDS: LEVOTHYROXINE 50 MCG TABLET PO (08:32)
[2019-03-05] MEDS: LISINOPRIL 10 MG TABLET PO (08:32)
[2019-03-05] MEDS: ATENOLOL 50 MG TABLET PO (08:33)
[2019-03-05 08:40] VITALS: BP 133/76; PULSE 73; RESP 16; TEMP 37; O2SAT 95
[2019-03-05 08:58] VITALS: O2SAT 96
--- NOTE | 2019-03-05 09:02 | PC.NURSE ---
pt is alert and oriented - denies pain and is anticipating discharge to home this date- this RN has removed iv catheter and pt getting herself dressed at this time- swallow and speech are with in normal limits -
--- NOTE | 2019-03-05 09:17 | PM.DS.1 ---
History of Present Illness Date Patient Seen: 03/03/19 Chief complaint: Weak left arm Narrative: Written by Bora BECERRA: Dian Lyles is a 73-year-old female patient with history of hypertension, hyperlipidemia, hypothyroidism and asthma who presents to the emergency department today with complaints of left arm and hand weakness. 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 The episode was transient and spontaneously resolved within minutes however the same symptoms reoccurred and persisted prompting the patient to present to the emergency department. She has had no history of prior neurological events or reported cardiovascular disease. While in the emergency department her symptoms have been gradually improving. She denies any associated symptoms of headaches, visual or hearing changes, difficulty chewing or swallowing or slurred speech. She has had no fevers or chills recent cold or flu symptoms. She has had no complaints of chest pain or palpitations, shortness breath cough or wheeze. She Has no abdominal pain and denies nausea vomiting and has no diarrhea but does experience occasional constipation. She does report having frequent UTIs and is currently using estradiol vaginal cream for treatment of frequent UTIs. In the ER the patient is found to be afebrile at 97.5 with heart rate of 74, blood pressure 165/81, respirations of 16 with a 98% saturation on room air. A head CT was obtained which finds volume loss for age with prominent sulcus and diary and internal carotid atherosclerosis. She received aspirin 325 mg in the ER. The patient is admitted for further evaluation and treatment. Discharge Providers Date of admission: 03/03/19 21:26 Discharge Date: 03/05/19 Primary care physician: Alia Brown PA-C Consults: 03/03/19 22:22 Consult to Occupational Therapy Evaluate & Treat Comment: TIA, left hand and arm weakness Physician Instructions: Evaluate and treat Consult to Physical Therapy Evaluate & Treat Comment: TIA, left hand and arm weakness Physician Instructions: Evaluate and Treat Discharge provider: Natali Jhaveri DO Summary Discharge Diagnosis: 1. Acute CVA, present on admission. Improving. 2. Hypothyroidism, chronic, present on admission. Stable. 3. Hypertension, chronic, present on admission. Stable. 4. GERD, chronic, present on admission. Stable. 5. Asthma without acute exacerbation, chronic, present on admission. Stable. Hospital Course: Dian Contreras is a 73-year-old female patient with a past medical history significant for hypertension, hyperlipidemia, hypothyroidism and asthma who presented to the emergency department with complaints of left arm and hand weakness. 1. Acute CVA, present on admission. Improving. -Patient presented with abrupt onset left arm and hand weakness. -CT brain did not demonstrate any acute intracranial abnormalities. -MR stroke protocol demonstrated small focus of subacute infarction involving posterior right frontal lobe superiorly and chronic age-appropriate brain parenchymal volume loss and chronic small vessel ischemic changes. No significant stenoses. -Failed aspirin as she was taking aspirin daily. Continue aspirin 81 mg daily and added Plavix 75 mg daily. -Fasting lipid panel demonstrated: Total cholesterol 180, triglycerides 148, HDL 45, and LDL 105 (goal <70). Continued atorvastatin 40 mg daily at bedtime. -Continued physical and occupational therapy and have recommended continued outpatient physical and occupational therapy. Patient instructed that she will need a cane for long distances and she plans to buy one. She will need someone to be at home with her for the next several days with plans for her son to stay with her. The patient has been advised not to drive for 2 weeks. -Continued telemetry. No ectopy during hospitalization. Echocardiogram showed no embolic focus. 2. Hypothyroidism, chronic, present on admission. Stable. -Continued levothyroxine 50 mcg daily. 3. Hypertension, chronic, present on admission. Stable. -Given her history of CVA she was switched to lisinopril 10 mg daily and discontinued hydrochlorothiazide and felodipine. Continued atenolol 50 mg daily. 4. GERD, chronic, present on admission. Stable. -Continued ranitidine 150 mg twice daily. 5. Asthma without acute exacerbation, chronic, present on admission. Stable. -Continued home inhalers. Status at Discharge Functional status at discharge: uses cane/walker Overall status at discharge: patient is progressing back to baseline Exam Vital Signs (past 8 hours): - 03/05/19 03:35 03/05/19 05:52 03/05/19 08:40 Temperature 97.5 F L 98.6 F Pulse Rate 69 67 73 Respiratory Rate 16 12 16 Blood Pressure 131/62 133/76 Pulse Oximetry 97 97 95 03/05/19 08:58 Temperature Pulse Rate Respiratory Rate Blood Pressure Pulse Oximetry 96 Oxygen Delivery Method Room Air Oxygen Flow Rate 0 Narrative Exam Narrative: General: Elderly female sitting at bedside and in no acute distress, well-developed, well-nourished, flat affect with a blank stare but otherwise appropriately interactive. HEENT: Normocephalic, atraumatic. External ears without defect. Pupils equal, round, and reactive to light. Anicteric sclerae, moist conjunctivae, and no lid lag. Neck: Supple with full range of motion. No jugular venous distension. No bruits. No lymphadenopathy or thyromegaly. Cardiovascular: Heart sounds distant but appears to be regular rhythm and rate, without murmurs, rubs, or gallops appreciated. Pulmonary: Clear to auscultation bilaterally without crackles, wheezes, or rhonchi. Normal respiratory effort with no use of accessory muscles. Abdomen: Soft, bowel sounds present, nontender, nondistended. No hepatosplenomegaly or masses appreciated. Extremities: No clubbing, cyanosis, or edema. Skin: Normal temperature, turgor, and texture; no rash, ulcers, or subcutaneous nodules appreciated. Neurological: Cranial nerves grossly intact. Mild decreased flexion of right 2nd and 3rd digits. MS +5/5 in all four extremities. Psychiatric: Normal mood and flat affect. Alert and oriented to person, place, and time. Objective Labs Result Diagrams: 03/03/19 20:01 03/04/19 05:21 Discharge Plan Discharge Plan Patient Disposition: Home Discharge comment: You are being discharged home. Please follow-up with your primary care provider, KEVIN Brown, in the next 1-2 weeks. You were prescribed aspirin 81 mg daily, clopidogrel 75 mg daily, and atorvastatin 40 mg daily at bedtime for stroke prevention. Your hydrochlorothiazide and felodipine have been discontinued and you were started on lisinopril 10 mg daily to control blood pressure. As discussed, the [place] [employer] recommends 150 minutes of moderate intensity cardiovascular exercise per week. If you're sedentary start with small obtain will goals and work your way up. Physical therapy recommends a cane for long distance ambulation. Recommend physical and occupational therapy outpatient. Discharge Med Rec/Prescriptions Prescriptions: New atorvastatin [Lipitor] 20 mg Tablet 40 mg PO BEDTIME Qty: 30 RF: 0 clopidogrel 75 mg Tablet 75 mg PO DAILY Qty: 30 RF: 0 lisinopril 10 mg Tablet 10 mg PO DAILY Qty: 30 RF: 0 Continued atenolol 50 MG tablet 50 mg PO QDAY Qty: 0 RF: 0 diphenhydramine HCl 50 MG capsule 50 mg PO HSP Qty: 0 RF: 0 calcium acetate 667 MG capsule 667 mg PO DAILY Qty: 0 RF: 0 CHOLECALCIFEROL (VITAMIN D3) (Vitamin D3) 40 mg PO BID Qty: 0 RF: 0 albuterol sulfate 90 mcg/actuation Hfa Aerosol Inhaler 1 puff INHALATION Q4-6H PRN (Reason: Wheezing) RF: 0 levothyroxine 50 mcg Tablet 50 mcg PO DAILY RF: 0 Qvar RediHaler 80 mcg/actuation Hfa Aerosol Breath Activated 1 puff INHALATION BID RF: 0 beclomethasone dipropionate 80 mcg/actuation Hfa Aerosol Breath Activated 1 puff INHALATION BID RF: 0 Changed aspirin 325 mg Tablet 81 mg PO DAILY Qty: 0 RF: 0 ranitidine HCl 150 mg Capsule 150 mg PO BID Qty: 0 RF: 0 Discontinued felodipine 5 MG tablet extended release 24 hr 5 mg PO QDAY Qty: 0 RF: 0 ibuprofen 600 MG tablet 600 mg PO Q8HP PRN (Reason: Pain, Moderate) Qty: 0 RF: 0 hydrochlorothiazide 25 MG tablet 25 mg PO QDAY Qty: 0 RF: 0 Follow up/Referrals: Alia Brown PA-C [Primary Care Provider] - 1 Week Provider Discharge Instructions Diet: Diet as Tolerated, Low-fat, Low-sodium and Low-cholesterol Activity: Activity as tolerated with a cane for long distances Visit Report/Discharge Packet Instructions: Ischemic Stroke, DI for Stroke-Ischemic, Right-side Stroke, Atorvastatin, Clopidogrel Discharge Data Primary Care Provider: Alia Brown Attending Provider: Bora Campbell Admit Date/Time: 03/03/19 21:26
--- NOTE | 2019-03-05 10:33 | PC.NURSE ---
PT D/C TO HOME AFTER REVIEWING NEW RX AND D/C PLAN AT HOME-
--- NOTE | 2019-03-05 11:26 | CM.DPC ---
DCP: continued: case discussed in Team Rounds. Dr. Stark stated she plans to d/c pt home today with outpt therapy followup/recommended by therapy team. Went to room to check in with pt. RN Huma Sifuentes reports she had already left for home. Pt did drive herself and Huma noted she seemed to be functional for same.
--- NOTE | 2019-03-05 12:14 | PC.NURSE ---
pt left gold colored watch here at hospital- labeled and placed in safe at main nurses desk- message left for pt.
--- NOTE | 2019-04-13 15:58 | PC.NURSE ---
Stop time for Normal Saline IVF is 03/04/19 at 1450
== END 2019-03-05 10:36 | disposition home or self-care (01) ==
LOC: ED 21:17 → AC 21:28
PROVIDERS: Admitting Provider Nurse Practitioner Adult Health; Emergency Provider Emergency Medicine; Family Provider Physician Assistant Medical; PCP Physician Assistant Medical; Visit Provider Nurse Practitioner Adult Health
DX: I63.9 Cerebral infarction, unspecified (principal); R29.818 Other symptoms and signs involving the nervous system; E03.9 Hypothyroidism, unspecified; I10 Essential (primary) hypertension; J45.909 Unspecified asthma, uncomplicated; K21.9 Gastro-esophageal reflux disease without esophagitis
CPT/HCPCS: 36415; 36591; 70450; 70548; 70553; 80048; 80053; 80061; 81001; 84484; 85025; 85610; 85730; 93005; 93306; 94640; 94760; 96360; 96361; 97127; 97161; 97166; 97530; 97535; 99283; 99285; 99291; G0378; J1650; J3480

== ENCOUNTER → 2020-08-09 13:46 | Outpatient (CLI) | payer OTHER, SELFPAY ==
--- NOTE | 2020-08-09 | DI.ECHO.S_ITS ---
[facility] +---------+ : : [address] : : : : [id number] : : : : Phone: [phone] Echocardiogram Report + + :Name: JEFE ACUÑA Study Date: 08/09/2020 Height: 63 in : :[facility] Weight: 180 lb : : Gender: Female BSA: 1.8 m2 : :: 1945 Age: 75 yrs BP: 137/82 mmHg: :Reason For Study: HEART FAILURE : :Ordering Physician: CARLOS, : :REMINGTON Performed By: Amy Canales : :Referring: REMINGTON GONZALEZ : + + Interpretation Summary The ejection fraction is estimated to be 60-65%. There is mild mitral regurgitation. There is mild aortic regurgitation. The right ventricular systolic pressure is estimated to be at least 24 mmHg based on an estimated right atrial pressure of 3 mm Hg. There is mild tricuspid regurgitation. Procedure: A two-dimensional transthoracic echocardiogram with color flow and Doppler was performed. The study quality was technically adequate. Comparison is made with the echocardiogram of 03/04/2019. The patient was in sinus rhythm with heart rates between 69-76 bpm during the exam. Left Ventricle: The left ventricle is normal in size and wall thickness. The ejection fraction is estimated to be 60-65%. There are no obvious focal wall motion abnormalities noted but poor endocardial definition reduces the sensitivity for the detection of such. Right Ventricle: The right ventricle is normal in size and function. Atria: The left atrium is mildly dilated. Right atrial size is normal. Mitral Valve: The mitral valve is normal in structure and function. There is mild mitral regurgitation. Aortic Valve: The aortic valve is trileaflet. The aortic valve opens well. There is no aortic valve stenosis. There is mild aortic regurgitation. Tricuspid Valve: The tricuspid valve is not well visualized, but is grossly normal. The right ventricular systolic pressure is estimated to be at least 24 mmHg based on an estimated right atrial pressure of 3 mm Hg. There is mild tricuspid regurgitation. Pulmonic Valve: The pulmonic valve is not well visualized. There is moderate pulmonic regurgitation. Great Vessels: The aortic root is normal size. The ascending aorta is mildly enlarged. The IVC is of normal diameter and collapses greater than 50% with a sniff. This suggests a low right atrial pressure of 3 mm Hg. Pericardium/ Pleura There is no pericardial effusion. There is no pleural effusion. MMode/2D Measurements & Calculations LVIDd: 4.0 cm LVOT diam: 2.2 cm LVIDs: 2.6 cm Ao root diam: 3.8 cm FS: 34.8 % asc Aorta Diam: 3.6 cm IVSd: 0.79 cm Ao Arch Diam (Prox Trans): 2.5 cm LVPWd: 0.73 cm LV richmond. diameter/BSA (cm/m^2): 2.2 LV sys. diameter/BSA (cm/m^2): 1.4 LA A2 area: 25.4 cm2 RA long axis: 5.8 cm LA A4 area: 16.4 cm2 RA area: 13.5 cm2 LA length (vol): 5.5 cm RA vol: 26.4 ml LA vol: 65.0 ml RA : 14.3 ml/m2 LA vol index: 35.2 ml/m2 IVC diam: 0.84 cm RVD1 (basal): 3.2 cm TAPSE: 1.8 cm Doppler Measurements & Calculations Ao V2 max: 116.2 cm/sec LVOT Max Bubba: 83.9 cm/sec Ao V2 mean: 81.8 cm/sec LV V1 max P.8 mmHg Ao max P.4 mmHg LV V1 VTI: 17.8 cm Ao mean P.0 mmHg HARITHA(I,D): 3.1 cm2 Ao V2 VTI: 21.3 cm HARITHA(V,D): 2.7 cm2 sev ratio: 0.84 HARITHA indexed to BSA (cm^2/m^2): 1.7 MV E max bubba: 43.6 cm/sec TR max bubba: 229.8 cm/sec MV A max bubba: 79.5 cm/sec TR max P.1 mmHg MV E/A: 0.55 PA V2 max: 66.2 cm/sec Med Peak E' Bubba: 8.2 cm/sec PA V2 mean: 43.6 cm/sec E/E' med: 5.3 PA mean P.87 mmHg Lat Peak E' Bubba: 7.8 cm/sec E/E' lat: 5.6 E/e' average: 5.5 MV dec time: 0.34 sec SV(LVOT): 65.8 ml Reading Physician:03:13 PM
== END ==
PROVIDERS: Family Provider Physician Assistant Medical; PCP Physician Assistant Medical; Referring Provider Physician Assistant Medical; Visit Provider Physician Assistant Medical
DX: I08.3 Combined rheumatic disorders of mitral, aortic and tricuspid valves (principal); I77.89 Other specified disorders of arteries and arterioles; I50.9 Heart failure, unspecified
CPT/HCPCS: 93306

== ENCOUNTER → 2021-01-16 10:42 | Outpatient (CLI) | payer OTHER, SELFPAY ==
[2021-01-16 11:25] LABS: COVID19 -Nasal RAPID Negative (Negative)
== END ==
PROVIDERS: PCP Physician Assistant Medical; Visit Provider Surgery
DX: Z20.822 Contact with and (suspected) exposure to COVID-19 (principal)
CPT/HCPCS: 87635; C9803

== ENCOUNTER 2021-01-18 07:40 | Day surgery (SDC) | payer OTHER, SELFPAY ==
[2021-01-18] VITALS (7 sets, daily range): BP systolic 108–151; BP diastolic 50–86; PULSE 69–93; RESP 14–17; TEMP 36.3–36.8; O2SAT 95–100; BMI 29.2
--- NOTE | 2021-01-18 | PATH_ITS ---
[facility] Accession Number: [id number] . 01 Material submitted: . PART A: duodenum - DUODENUM PART B: gastrointestinal site - STOMACH PART C: esophagus - ESOPHAGUS . 01 Clinical history: . SDC . 02 Diagnosis: A. Duodenum, Biopsy: Duodenal mucosa with no diagnostic abnormality. Negative for active inflammation, features of sprue, dysplasia, or malignancy. . B. Stomach, Biopsies: Gastric antral and body mucosa with moderate chronic inflammation. Negative for Helicobacter organisms by immunohistochemistry. Negative for intestinal metaplasia. Negative for dysplasia or malignancy. . C. Esophagus, Biopsy: Squamocolumnar junctional mucosa with mild chronic inflammation. Negative for specialized intestinal metaplasia on AB/PAS stain. Negative for dysplasia or malignancy. [facility] 01/24/2021 1457 Local . 02 Electronically signed: . Hiram Lam MD, PhD, Pathologist NPI- [id number] . 01 Gross description: . A. Specimen A is received in formalin labeled duodenum and consists of a 0.4 x 0.3 x 0.2 cm fung-pink fragment of soft tissue, which is entirely submitted in cassette A1. B. Specimen B is received in formalin labeled stomach and consists of four fung-pink fragments of soft tissue, measuring 0.7 x 0.6 x 0.2 cm in aggregate. The specimen is entirely submitted in cassette B1. C. Specimen C is received in formalin labeled esophagus and consists of two fung-pink fragments of soft tissue, measuring 0.3 x 0.3 x 0.2 cm in aggregate. The specimen is entirely submitted in cassette C1. (EA:[id number]) /[facility] 01/19/2021 1811 Local . 02 Microscopic: . B. An immunohistochemical stain was performed to evaluate for Helicobacter organisms and is negative. The control stain showed appropriate reactivity. . C. An AB/PAS stain is performed to evaluate for specialized intestinal metaplasia, and is negative for goblet cells. A control stain shows appropriate reactivity. . . * This test was developed and its performance characteristics determined by [facility]. It has not been cleared or approved by the U.S. Food and Drug Administration. The FDA has determined that such clearance or approval is not necessary. This test is used for clinical purposes. It should not be regarded as investigational or for research. . 02 Pathologist provided ICD-10: D64.9, K29.70, K20.90 . 02 CPT . 030626, 651528, 427094, [id number], 102936 Performed at: 01 [facility] [address] [place] [address], [place], [place] [id number] MD Eldon Ortiz MD Phone: [phone] Performed at: 02 [facility] [address] [place], [place] [id number] MD Simi Landeros MD Phone: [phone]
[2021-01-18] MEDS: SODIUM CHLORIDE 0.9% 1,000 ML 200 ML IV (08:20)
--- NOTE | 2021-01-18 08:28 | PM.HP.1 ---
History of Present Illness History of Present Illness Date Patient Seen: 01/18/21 Time Patient Seen: 08:28 Chief complaint: SDC Narrative: This is a 75-year-old woman with history of asthma, hypothyroid, hypertension, CVA, CHF, groin hernia repair in 2012, hysterectomy. Last fall she was noted to have anemia with a hemoglobin of 7.2 on outside labs. She had repeat labs after getting on omeprazole, and her hemoglobin came up to 13. She was also started on iron, and her Plavix was discontinued which she had been taking for her history of stroke. She has never noted any blood in the stool or melena. Her stool has been dark since starting the iron. She denies any epigastric pain. She used to have heartburn, but since she has been taking omeprazole twice daily her heartburn has resolved for the most part. She occasionally has an episode of heartburn about once a week. She has never had an EGD or colonoscopy. She had an echocardiogram recently which revealed an ejection fraction of 60-65%. ROS: She reports fatigue, cough, shortness of breath, joint pain, weakness and reflux symptoms. Thirteen system review is otherwise negative other than as mentioned below and in HPI. PE GENERAL: Well groomed and cooperative. Appears stated age. Answers questions promptly and appropriately. Vital signs noted. HENT: Normocephalic, atraumatic. Hearing intact. EYES: Conjunctiva pink, sclera white, no periorbital swelling. CARDIOVASCULAR: Regular rate. No pedal edema. RESPIRATORY: Non-tachypneic, breathing comfortably on room air. GASTROINTESTINAL: Abdomen soft and non-distended, rounded, nontender GENITALURINARY: No flank tenderness. MUSCULOSKELETAL: Equal tone and mass bilaterally. SKIN: Warm, dry, soft, appropriate color for ethnicity. No other lesions, rashes, or wounds. NEURO: Alert and Oriented X 3. No gross sensory deficits, or cognitive issues. PSYCH: Appropriate affect and mood. Patient History Medical History (Updated 01/18/21 @ 08:30 by Nanda Ramirez MD) Asthma Dyspepsia Frequent UTI Hypertension Hypothyroid Surgical History History of cataract surgery History of ventral hernia repair Family & Social History Family History Father Cancer Mother Hemorrhagic cerebrovascular accident (CVA) Sister Cancer Daughter Optic nerve tumor Social History: household members none Tobacco & Substance use: Smoking Status Never smoker alcohol intake current alcohol intake frequency 0-2 drinks per day Substance Use Type does not use Meds Home Medications and Allergies Home Medications Medication Instructions Recorded Confirmed Type CHOLECALCIFEROL (VITAMIN D3) 40 mg PO BID #0 04/10/13 01/18/21 History (Vitamin D3) atenolol 50 mg PO QDAY #0 04/10/13 01/18/21 History calcium acetate(phosphat bind) 667 mg PO DAILY #0 04/10/13 01/18/21 History diphenhydramine HCl 50 mg PO HSP #0 04/10/13 01/18/21 History albuterol sulfate 1 puff INHALATION Q4-6H PRN 09/08/18 01/18/21 History Qvar RediHaler 1 puff INHALATION BID 03/03/19 01/18/21 History levothyroxine 50 mcg PO DAILY 03/03/19 01/18/21 History aspirin 81 mg PO DAILY #0 tab 03/05/19 01/18/21 Rx atorvastatin [Lipitor] 40 mg PO BEDTIME #30 tab 03/05/19 01/18/21 Rx lisinopril 10 mg PO DAILY #30 tab 03/05/19 01/18/21 Rx peg 3350-electrolytes 236 240 ml PO Q10M #4000 ml 01/03/21 01/18/21 Rx gram-22.74 gram-6.74 gram-5.86 gram solution omeprazole 20 mg PO BID 01/18/21 01/18/21 History Allergies Allergy/AdvReac Type Severity Reaction Status Date / Time codeine AdvReac Intermediate SEVERE Verified 07/27/20 14:35 NAUSEA/VOMITING Exam Vital Signs (past 8 hours): - 01/18/21 08:13 Temperature 98.2 F Pulse Rate 93 H Respiratory Rate 16 Blood Pressure 151/86 H Pulse Oximetry 95 Oxygen Delivery Method Room Air Assessment & Plan Assessment and plan (1) Anemia of unknown etiology: Status: Acute (2) Heartburn: Status: Acute Assessment & Plan narrative: Risks and benefits of screening colonoscopy and upper endoscopy and possible polypectomy or biopsy were discussed with the patient including risk of bleeding, perforation, need for additional procedures, risks of anesthesia. The patient desires to proceed with the colonoscopy procedure. COVID-19 COVID-19 status: Negative Result date/Date tested (Pos, Neg/Pending): 01/17/21 Time Spent With Patient Time with patient: 15-24 minutes Quality VTE Deep Vein Thrombosis/Pulmonary Embolism Present on Admission: No
[2021-01-18] MEDS: LIDOCAINE 4% SOLN 50 ML 20 ML TOP (08:30)
--- NOTE | 2021-01-18 08:31 | P.OP.ENDO_ITS ---
Operative Date/Time/Diagnoses Date of procedure: 01/18/21 Time of procedure: 08:31 Pre-op diagnosis: Anemia, heartburn Post-op diagnosis: other (Moderate hiatal hernia, endoscopic gastritis with healing shallow ulcers, no active bleeding) Procedure & Clinicians Study performed: Esophagogastroduodenoscopy Biopsies of duodenum, stomach, distal esophagus Colonoscopy Procedural sedation performed by the endoscopist Same procedure as scheduled: Yes Indications: Anemia Surgeon: Nanda Ramirez Procedure Notes SCOAP/Timeout: Performed Procedure in detail: The patient was brought to the room and placed in left lateral decubitus position with all bony prominences padded. A bite block was positioned in the patient's mouth to protect the lips, teeth, and tongue for the procedure. A time-out was performed and then the patient was given procedural sedation starting with 2 mg of Versed and 100 mcg of fentanyl. Vitals were monitored throughout the procedure and remained stable. Once adequately sedated, the procedure was begun. The lubricated gastroscope was passed through the bite block and across the tongue and into the esophagus without incident. A tubular view of the esophagus was maintained as the scope was advanced through the esophagus and into the stomach. The scope was advanced through the stomach and to the pylorus. The scope was gently popped through the pylorus and into the duodenal bulb. The scope was flexed and advanced into the second and third portions of the duodenum. The duodenum and duodenal bulb appeared fairly normal, with some evidence of low-grade inflammatory change. The scope was withdrawn into the stomach. The stomach revealed moderate endoscopic gastritis, with shallow healing ulcers, and no evidence of active bleeding or exposed vessel. Biopsies were taken of the duodenum and stomach. The scope was retroflexed and the gastric cardia was examined. The hiatus Revealed a Hill grade 3-4 hiatal hernia. The scope was then straightened, and withdrawn into the esophagus. The Z-line was seen at 35 cm, with crural pinch at 38cm. No large tongues of gastric mucosa were seen coming up into the esophagus. The distal esophagus appeared otherwise normal. The scope was then withdrawn through the esophagus with a tubular view. The scope was then withdrawn from the patient. Attention was then turned to the colonoscopy portion of the procedure. A rectal exam was performed revealing no abnormalities. The colonoscope was then introduced to the rectum and advanced to the cecum in the usual fashion. The cecum was identified by the appendiceal orifice, the mucosal tri-fold, and the ileocecal valve. The scope was then retracted while rotating side to side and examining each mucosal fold. Moderate diverticulosis was seen in the sigmoid and descending colon, with no evidence of active diverticulitis. ] At the conclusion of the procedure small grade 1-2 internal hemorrhoids without stigmata of bleeding were seen. The scope was then withdrawn from the rectum t he procedure was concluded. The patient tolerated the procedure well and was transferred to the PACU in stable condition. Scope withdrawal time: 8 Sedation minutes: 34 Findings: diverticulosis, gastritis and hiatal hernia Specimen(s): other (Biopsies of duodenum, stomach, distal esophagus) Complications: none Impression: Likely source of anemia is gastritis. Patient should continue PPI. Post-procedure Recommendations: Colonscopy in 5 years (If healthy enough for colonoscopy at that time) and Continue medication(s) (Continue omeprazole b.i.d., further recommendations pending biopsy results) Follow up: as needed Disposition: PACU
[2021-01-18] MEDS: fentaNYL 250 MCG/5 ML INJ IV (08:45)
[2021-01-18] MEDS: MIDAZOLAM 5 MG/5 ML VIAL IV (08:45)
== END 2021-01-18 10:06 | disposition home or self-care (01) ==
PROVIDERS: PCP Physician Assistant Medical; Referring Provider Surgery; Visit Provider Surgery
PROC: 0DJ08ZZ Inspection of Upper Intestinal Tract, Via Natural or Artificial Opening Endoscopic (ICD-10-PCS; CPT 43235; principal; 2021-01-18 08:30)
PROC: 0DJD8ZZ Inspection of Lower Intestinal Tract, Via Natural or Artificial Opening Endoscopic (ICD-10-PCS; CPT 45378; 2021-01-18 08:30)
DX: D64.9 Anemia, unspecified (principal); R12 Heartburn; J45.909 Unspecified asthma, uncomplicated; E03.9 Hypothyroidism, unspecified; I11.0 Hypertensive heart disease with heart failure; Z86.73 Personal history of transient ischemic attack (TIA), and cerebral infarction without residual deficits; K44.9 Diaphragmatic hernia without obstruction or gangrene; K25.9 Gastric ulcer, unspecified as acute or chronic, without hemorrhage or perforation; K64.0 First degree hemorrhoids; K57.30 Diverticulosis of large intestine without perforation or abscess without bleeding; K29.50 Unspecified chronic gastritis without bleeding
CPT/HCPCS: 43235; 45378; 99152; 99153; J2250; J3010

== ENCOUNTER 2022-05-17 12:55 | Observation (INO) | payer OTHER, SELFPAY ==
[2022-05-17] VITALS (10 sets, daily range): BP systolic 163–192; BP diastolic 71–85; PULSE 63–76; RESP 16–33; TEMP 36.6–37.2; O2SAT 95–99; BMI 21.9
--- NOTE | 2022-05-17 13:15 | DI.CT.S_ITS ---
PROCEDURE: CT CERVICAL SPINE WO CON INDICATIONS: fall TECHNIQUE: Noncontrast 3 mm thick sections acquired from the skull base to the T4 level. Sagittal and coronal reformats were then constructed. For radiation dose reduction, the following was used: automated exposure control, adjustment of mA and/or kV according to patient size. COMPARISON: [facility], CT, CT FACIAL BONES WO CON, 05/17/2022, 13:33. FINDINGS: Image quality: Excellent. Bones: No fractures or dislocations. Visualized superior ribs are intact. Multilevel degenerative changes are present. Soft tissues: Prevertebral soft tissues are normal in thickness. No paravertebral hematomas. No apical pneumothoraces. IMPRESSION: Degenerative changes without visualized fracture. Dictated by: Mary Hodgson M.D. on 05/17/2022 at 14:17 Approved by: Mary Hodgson M.D. on 05/17/2022 at 14:20
--- NOTE | 2022-05-17 13:15 | DI.CT.S_ITS ---
PROCEDURE: CT FACIAL BONES WO CON INDICATIONS: fall TECHNIQUE: Noncontrast 2.5 mm thick axial images acquired from the mandible through the frontal sinuses, with coronal and sagittal reformatting. For radiation dose reduction, the following was used: automated exposure control, adjustment of mA and/or kV according to patient size. COMPARISON: [facility], CT, CT HEAD/BRAIN WO CON, 03/03/2019, 19:49. FINDINGS: Image quality: Excellent. Bones and teeth: Orbital proctor are intact. Sinus proctor show no fracture or deformity. Nasal bone show slight discontinuity, new compared to prior exam. Slight overlying soft tissue edema is present. Visualized portions of the mandible demonstrate no fractures or subluxation. Zygomatic arches are intact. Pterygoid plates are intact. Visualized portions of the skull base and auditory canals are intact. Sinuses: Paranasal sinuses are aerated, without fluid levels, mucosal thickening, or mucoceles. Mastoid air cells are aerated. Soft tissues: No edema, masses, or fluid collections. No enlarged lymph nodes. No soft tissue lacerations or debris. Vascular: Visualized vascular structures appear normal in the absence of contrast. Bony vascular foramina and canals are intact. IMPRESSION: Slight nasal bone discontinuity most suggestive of fracture, given new since 2019 with recent history of trauma and soft tissue edema. Dictated by: Mary Hodgson M.D. on 05/17/2022 at 14:20 Approved by: Mary Hodgson M.D. on 05/17/2022 at 14:53
--- NOTE | 2022-05-17 13:15 | DI.CT.S_ITS ---
PROCEDURE: CT HEAD/BRAIN WO CON INDICATIONS: fall TECHNIQUE: Noncontrast 4.5 mm thick angled axial sections acquired from the foramen magnum to the vertex, with coronal and sagittal reformats. For radiation dose reduction, the following was used: automated exposure control, adjustment of mA and/or kV according to patient size. COMPARISON: [facility], CT, CT HEAD/BRAIN WO CON, 03/03/2019, 19:49. FINDINGS: Image quality: Excellent. CSF spaces: Basal cisterns are patent. No extra-axial fluid collections. The ventricles are symmetric in size and shape. Brain: No intracranial bleeds or masses. There is cerebral volume loss for age, with resultant ventricular and sulcal prominence. There are periventricular and deep white matter chronic small vessel ischemic changes. There is intracranial internal carotid artery atherosclerosis. Skull and face: Calvarium and visualized facial bones appear intact, without suspicious lesions. Sinuses: Visualized sinuses and mastoids are clear. IMPRESSION: 1. No acute intracranial process. 2. Moderate to severe atrophy and chronic microvascular ischemic changes. Dictated by: Mary Hodgson M.D. on 05/17/2022 at 14:14 Approved by: Mary Hodgson M.D. on 05/17/2022 at 14:15
--- NOTE | 2022-05-17 13:16 | DI.RAD.S_ITS ---
PROCEDURE: XR CHEST 1V INDICATIONS: fall weakness TECHNIQUE: One view of the chest was acquired. COMPARISON: None. FINDINGS: Surgical changes and devices: None. Lungs and pleura: Lungs are clear. No pleural effusions or pneumothorax. Mediastinum: Mediastinal contours appear normal. Heart size is normal. Bones and chest wall: No suspicious bony lesions. Overlying soft tissues appear unremarkable. IMPRESSION: No acute cardiopulmonary disease process. Dictated by: Jeannette Deal MD, PhD on 05/17/2022 at 14:17 Approved by: Jeannette Deal MD, PhD on 05/17/2022 at 14:18
[2022-05-17 13:32] LABS: Add Manual Diff / Slide Review NO; Basophils Absolute Auto 0 /uL (0-100); Basophils Percent Auto 0.4 % (0-2); Eosinophils Absolute Auto 0 /uL (0-450); Eosinophils Percent Auto 0.1 % (2-4); Hematocrit 38.9 % (36-46); Lymphocytes Absolute Auto 700 /uL (1100-4500); Mean Corpuscular HGB Conc 33.3 % (30-36); Mean Corpuscular Hemoglobin 31.7 PG (26-34); Mean Corpuscular Volume 95.1 fL (80-100); Monocytes Absolute Auto 800 /uL (0-900); Monocytes Percent Auto 17.3 % (3-14); Neutrophils Absolute Auto 2900 /uL (1500-7000); Neutrophils Percent Auto 66.2 % (50-75); Platelet Count 117 X10^3/uL (150-400); Red Blood Cell Count 4.09 X10^6/uL (4.0-5.2); Red Cell Distribution Width 13.1 % (11.6-14.8); White Blood Cell Count 4.3 X10^3/uL (4.5-11.0)
[2022-05-17 13:38] LABS: Alanine Aminotransferase 30 IU/L (<35); Albumin 4.1 g/dL (3.5-5.0); Albumin Globulin Ratio 1.6 (1.0-2.8); Alkaline Phosphatase 74 U/L (38-126); Aspartate Aminotransferase 81 IU/L (14-36); BUN Creatinine Ratio 25.4 (6-22); Bilirubin Total 0.5 mg/dL (0.2-1.3); Blood Urea Nitrogen 18 mg/dL (7-17); Calcium 8.9 mg/dL (8.4-10.2); Carbon Dioxide 27 mmol/L (22-32); Chloride 104 mmol/L (98-107); Creatine Kinase 1486 U/L (30-135); Estimated Glomerular Filt Rate > 60 mL/min (>60); Ethanol (ETOH) < 10 mg/dL; Globulin 2.5 g/dL (1.7-4.1); Glucose 82 mg/dL (80-110); HEMOLYSIS < 15 (0-50); Potassium 3.3 mmol/L (3.4-5.1); Sodium 137 mmol/L (137-145); Total Protein 6.6 g/dL (6.3-8.2)
[2022-05-17 13:50] LABS: Troponin I < 0.012 ng/mL (0.01-0.034)
[2022-05-17 13:53] LABS: CKMB % Relative Index 0.4 % (1.5-5.0); Creatine Kinase MB 5.38 ng/mL (<2.37)
--- NOTE | 2022-05-17 14:15 | ED.WEAKNESS ---
HPI - Weakness General Chief complaint: Weakness Stated complaint: generalized weakness, ? black eye Time Seen by Provider: 05/17/22 13:09 Source: patient and EMS Mode of arrival: EMS History of Present Illness HPI Narrative: Patient is a 77-year-old female history of CVA, hyperlipidemia, hypertension, asthma hypothyroid, CHF presenting today with 3 days of generalized weakness. She lives with her grandson. He a he saw her yesterday says that she has just been getting a little bit weaker. She really does not have any complaints. Today there is evidence of bruising around her left eye and left hand. Patient denies falling or hitting her head. She denies any pain. She states that she just generally feels weak she was unable to get out of bed today she has had a cough it seems to be getting a little bit worse. She denies any shortness of breath. Related Data Home Medications Medication Instructions Recorded Confirmed CHOLECALCIFEROL (VITAMIN D3) 40 mg PO BID ##0 04/10/13 01/18/21 (Vitamin D3) atenolol 50 mg tablet 50 mg PO QDAY ##0 04/10/13 05/17/22 calcium acetate(phosphat bind) 667 667 mg PO DAILY ##0 04/10/13 01/18/21 mg capsule albuterol sulfate 90 mcg/actuation 1 puff inhalation Q4-6H PRN 09/08/18 01/18/21 aerosol inhaler Wheezing beclomethasone dipropionate 80 1 puff inhalation BID 03/03/19 01/18/21 mcg/actuation HFA breath activated aerosol (Qvar RediHaler) levothyroxine 50 mcg tablet 50 mcg PO DAILY 03/03/19 05/17/22 clopidogrel 75 mg tablet 1 tab PO DAILY 05/17/22 05/17/22 lisinopril 10 mg tablet 20 mg PO DAILY 05/17/22 pantoprazole 40 mg tablet,delayed 1 tab PO BID 05/17/22 05/17/22 release Previous Rx's Medication Instructions Recorded atorvastatin 20 mg tablet (Lipitor) 40 mg PO BEDTIME #30 tabs 03/05/19 Allergies Allergy/AdvReac Type Severity Reaction Status Date / Time codeine AdvReac Intermediate SEVERE Verified 07/27/20 14:35 NAUSEA/VOMITING Review of Systems Review of Systems Narrative: GENERAL: See HPI HEENT: Denies sinus pain, ear pain, sore throat, difficulty swallowing, neck pain RESPIRATORY: Denies dyspnea, cough, wheezing, hemoptysis, sputum. CARDIOVASCULAR: Denies chest pain, palpitations, orthopnea, edema GASTROINTESTINAL: Denies nausea, vomiting, abdominal pain, diarrhea, constipation, melena. : Denies dysuria, frequency, incontinence, hematuria, urinary retention, flank pain. MUSCULOSKELETAL: Denies weakness, joint pain, or bony pain SKIN: See HPI NEUROLOGIC: Denies weakness, dizziness, headache, numbness, change in speech, confusion PSYCHIATRIC: No concerning psychosocial issues. 12 point review of systems is negative except for those stated above and HPI Patient History Medical History Asthma Dyspepsia Frequent UTI Hypertension Hypothyroid Surgical History History of cataract surgery History of ventral hernia repair Family History Father Cancer Mother Hemorrhagic cerebrovascular accident (CVA) Sister Cancer Daughter Optic nerve tumor Social History marital status: unknown household members: none Smoking Status: Never smoker alcohol intake: current substance use type: does not use Smoking Status: Never smoker alcohol intake frequency: 3 or more drinks per day Alcohol type: wine Substance Use Type: does not use Exam Initial Vital Signs Initial Vital Signs: Vital Signs Pulse Rate 71 05/17/22 13:09 Respiratory Rate 18 05/17/22 13:09 Pulse Oximetry 97 05/17/22 13:09 GENERAL: Alert pleasant 77-year-old female and in no acute distress. HEENT: Head left periorbital contusion no step-off, ,EOMI, pupils reactive, face symmetric, moist mucous membranes CARDIOVASCULAR: Regular rate and rhythm without murmurs, rubs or gallops. RESPIRATORY: Breath sounds equal bilaterally, no wheezes rales or rhonchi. ABDOMEN: Soft, nontender. Normoactive bowel sounds all 4 quadrants. No guarding or rebound. EXTREMITIES: Normal range of motion, no clubbing or edema. 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 SKIN: Contusion noted left periorbital region, left in Course Orders Ordered: ED Orders 05/17/22 13:12 CBC Auto Diff [Complete Blood Count AUTO DIFF] Stat CMP [Comprehensive Metabolic Panel] Stat ETOH [Ethanol (ETOH)] Stat Procalcitonin Stat Troponin & CK Cardiac Panel Stat 05/17/22 13:15 CT cervical spine wo con Stat CT facial bones wo con Stat CT head/brain wo con Stat 05/17/22 13:16 Chest [XR chest 1V] Stat EKG-12 Lead Stat 05/17/22 13:50 BNP [NT-proBNP (BNP-Adult 18+)] Stat Lactate (Lactic Acid) Stat 05/17/22 14:03 COVID19 -Nasal RAPID/Pre-Proc Stat 05/17/22 14:37 Blood Culture Stat 05/17/22 14:50 UA Complete [Urinalysis and Microscopic] Stat Urine Culture Stat Urine Drug Screen, Rapid Stat 05/17/22 15:00 Consult to Physical Therapy Evaluate & Treat Acetaminophen (Acetaminophen 325 Mg Tablet) 975 mg PO Q8H PRN PRN Reason: Pain, Mild (1-3) Atenolol (Atenolol 50 Mg Tablet) 50 mg PO DAILY [facility] Last Admin: 05/17/22 18:56 Dose: 50 mg Documented By: RUBI Atorvastatin Calcium (Atorvastatin 20 Mg Tablet) 40 mg PO BEDTIME [facility] Clopidogrel Bisulfate (Clopidogrel 75 Mg Tablet) 75 mg PO DAILY [facility] Enoxaparin Sodium (Enoxaparin 40 Mg/0.4 Ml Syringe) 40 mg SUBCUT DAILY [facility] Folic Acid (Folic Acid 1 Mg Tablet) 1 mg PO DAILY [facility] Sodium Chloride (Normal Saline 0.9%) 1,000 mls @ 100 mls/hr IV CONT [facility] Last Admin: 05/17/22 17:48 Dose: 100 mls/hr Documented By: RUBI Ceftriaxone Sodium 1,000 mg/ (Sodium Chloride) 100 mls @ 200 mls/hr IV Q24H JIM Stop: 05/20/22 18:14 Last Admin: 05/17/22 18:37 Dose: 200 mls/hr Documented By: RUBI Levothyroxine Sodium (Levothyroxine 50 Mcg Tablet) 50 mcg PO DAILY [facility] Lisinopril (Lisinopril 20 Mg Tablet) 20 mg PO DAILY [facility] Magnesium Hydroxide (Magnesium Hydroxide 30 Ml Udc) 30 ml PO DAILY PRN PRN Reason: Constipation Multivitamins (Multivitamin 1 Tablet) 1 tab PO DAILY [facility] Ondansetron HCl (Ondansetron 4 Mg Odt) 4 mg PO Q8HR PRN PRN Reason: Nausea And Vomiting Pantoprazole Sodium (Pantoprazole Dr 40 Mg Tablet) 40 mg PO BID [facility] Thiamine HCl (Thiamine 100 Mg Tablet) 100 mg PO DAILY JIM Stop: 05/21/22 09:01 Vital Signs Vital signs: Vital Signs - 8 hr 05/17/22 13:17 05/17/22 13:09 05/17/22 13:30 Temperature 98.7 F Pulse Rate 65 71 69 Respiratory Rate 24 18 33 H Blood Pressure 174/75 H Pulse Oximetry 97 97 97 Oxygen Delivery Method Room Air 05/17/22 13:42 05/17/22 13:42 05/17/22 14:00 Temperature Pulse Rate 69 Respiratory Rate 19 Blood Pressure 169/72 H 192/79 H Pulse Oximetry 98 Oxygen Delivery Method 05/17/22 14:00 05/17/22 14:30 05/17/22 15:30 Temperature Pulse Rate 69 70 72 Respiratory Rate 25 H 23 20 Blood Pressure Pulse Oximetry 96 99 95 Oxygen Delivery Method MDM - Weakness Lab Data Result diagrams: 05/17/22 13:12 05/17/22 13:12 Labs: Lab Results 05/17/22 05/17/22 05/17/22 Range/Units 13:12 13:12 13:12 WBC 4.3 L (4.5-11.0) X10^3/uL RBC 4.09 (4.0-5.2) X10^6/uL Hgb 13.0 (12.0-16.0) g/dL Hct 38.9 (36-46) % MCV 95.1 (80-100) fL MCH 31.7 (26-34) PG MCHC 33.3 (30-36) % RDW 13.1 (11.6-14.8) % Plt Count 117 L (150-400) X10^3/uL Neut % (Auto) 66.2 (50-75) % Lymph % (Auto) 16.0 L (25-40) % [place] % (Auto) 17.3 H (3-14) % Eos % (Auto) 0.1 L (2-4) % Baso % (Auto) 0.4 (0-2) % Neut # (Auto) 2900 (9490-8066) /uL Lymph # (Auto) 700 L (3397-8786) /uL [place] # (Auto) 800 (0-900) /uL Eos # (Auto) 0 (0-450) /uL Baso # (Auto) 0 (0-100) /uL Sodium 137 (137-145) mmol/L Potassium 3.3 L (3.4-5.1) mmol/L Chloride 104 (98-107) mmol/L Carbon Dioxide 27 (22-32) mmol/L BUN 18 H (7-17) mg/dL Creatinine 0.71 (0.52-1.04) mg/dL Estimated GFR > 60 (>60) mL/min BUN/Creatinine Ratio 25.4 H (6-22) Glucose 82 (80-110) mg/dL Lactate (0.7-2.1) mmol/L Calcium 8.9 (8.4-10.2) mg/dL Total Bilirubin 0.5 (0.2-1.3) mg/dL AST 81 H (14-36) IU/L ALT 30 (<35) IU/L Alkaline Phosphatase 74 (38-126) U/L Total Creatine Kinase 1486 H (30-135) U/L CK-MB (CK-2) 5.38 H (<2.37) ng/mL CK-MB (CK-2) Rel Index 0.4 L (1.5-5.0) % Troponin I < 0.012 (0.01-0.034) ng/mL NT-Pro-B Natriuret Pep (<450) pg/mL Total Protein 6.6 (6.3-8.2) g/dL Albumin 4.1 (3.5-5.0) g/dL Globulin 2.5 (1.7-4.1) g/dL Albumin/Globulin Ratio 1.6 (1.0-2.8) Procalcitonin (<0.5) ng/mL Urine Color Urine Appearance Urine pH (4.5-8.0) Ur Specific [place] (1.000-1.035) Urine Protein (Negative) Urine Glucose (UA) (Negative) g/dL Urine Ketones (NEGATIVE) Urine Occult Blood (Negative) Urine Nitrate (Negative) Urine Bilirubin (NEGATIVE) Urine Urobilinogen (0.2) E.U./dL Ur Leukocyte Esterase (NEGATIVE) Urine RBC (0-5/HPF) Urine WBC (0-5/HPF) Ur Squamous Epith Cells (0-5/HPF) Urine Bacteria (None) Ur Culture Indicated? U Opiates 300ng/mL cut (Negative) Ur Oxycodone Screen (Negative) Urine Methadone Screen (Negative) Ur Barbiturates Screen (Negative) U Tricyclic Antidepress (Negative) Ur Phencyclidine Scrn (Negative) Ur Amphetamines Screen (Negative) U Methamphetamines Scrn (Negative) Ur MDMA Scrn (Ecstasy) (Negative) U Benzodiazepines Scrn (Negative) Urine Cocaine Screen (Negative) U Marijuana (THC) Screen (Negative) Ethyl Alcohol < 10 ( - 10) mg/dL SARS-CoV-2 (PCR) (Negative) 05/17/22 05/17/22 05/17/22 Range/Units 13:12 13:50 13:50 WBC (4.5-11.0) X10^3/uL RBC (4.0-5.2) X10^6/uL Hgb (12.0-16.0) g/dL Hct (36-46) % MCV (80-100) fL MCH (26-34) PG MCHC (30-36) % RDW (11.6-14.8) % Plt Count (150-400) X10^3/uL Neut % (Auto) (50-75) % Lymph % (Auto) (25-40) % [place] % (Auto) (3-14) % Eos % (Auto) (2-4) % Baso % (Auto) (0-2) % Neut # (Auto) (2491-3859) /uL Lymph # (Auto) (0789-3669) /uL [place] # (Auto) (0-900) /uL Eos # (Auto) (0-450) /uL Baso # (Auto) (0-100) /uL Sodium (137-145) mmol/L Potassium (3.4-5.1) mmol/L Chloride (98-107) mmol/L Carbon Dioxide (22-32) mmol/L BUN (7-17) mg/dL Creatinine (0.52-1.04) mg/dL Estimated GFR (>60) mL/min BUN/Creatinine Ratio (6-22) Glucose (80-110) mg/dL Lactate 1.4 (0.7-2.1) mmol/L Calcium (8.4-10.2) mg/dL Total Bilirubin (0.2-1.3) mg/dL AST (14-36) IU/L ALT (<35) IU/L Alkaline Phosphatase (38-126) U/L Total Creatine Kinase (30-135) U/L CK-MB (CK-2) (<2.37) ng/mL CK-MB (CK-2) Rel Index (1.5-5.0) % Troponin I (0.01-0.034) ng/mL NT-Pro-B Natriuret Pep 439 (<450) pg/mL Total Protein (6.3-8.2) g/dL Albumin (3.5-5.0) g/dL Globulin (1.7-4.1) g/dL Albumin/Globulin Ratio (1.0-2.8) Procalcitonin 0.10 (<0.5) ng/mL Urine Color Urine Appearance Urine pH (4.5-8.0) Ur Specific [place] (1.000-1.035) Urine Protein (Negative) Urine Glucose (UA) (Negative) g/dL Urine Ketones (NEGATIVE) Urine Occult Blood (Negative) Urine Nitrate (Negative) Urine Bilirubin (NEGATIVE) Urine Urobilinogen (0.2) E.U./dL Ur Leukocyte Esterase (NEGATIVE) Urine RBC (0-5/HPF) Urine WBC (0-5/HPF) Ur Squamous Epith Cells (0-5/HPF) Urine Bacteria (None) Ur Culture Indicated? U Opiates 300ng/mL cut (Negative) Ur Oxycodone Screen (Negative) Urine Methadone Screen (Negative) Ur Barbiturates Screen (Negative) U Tricyclic Antidepress (Negative) Ur Phencyclidine Scrn (Negative) Ur Amphetamines Screen (Negative) U Methamphetamines Scrn (Negative) Ur MDMA Scrn (Ecstasy) (Negative) U Benzodiazepines Scrn (Negative) Urine Cocaine Screen (Negative) U Marijuana (THC) Screen (Negative) Ethyl Alcohol ( - 10) mg/dL SARS-CoV-2 (PCR) (Negative) 05/17/22 05/17/22 05/17/22 Range/Units 14:03 14:50 14:50 WBC (4.5-11.0) X10^3/uL RBC (4.0-5.2) X10^6/uL Hgb (12.0-16.0) g/dL Hct (36-46) % MCV (80-100) fL MCH (26-34) PG MCHC (30-36) % RDW (11.6-14.8) % Plt Count (150-400) X10^3/uL Neut % (Auto) (50-75) % Lymph % (Auto) (25-40) % [place] % (Auto) (3-14) % Eos % (Auto) (2-4) % Baso % (Auto) (0-2) % Neut # (Auto) (2471-3640) /uL Lymph # (Auto) (1148-2139) /uL [place] # (Auto) (0-900) /uL Eos # (Auto) (0-450) /uL Baso # (Auto) (0-100) /uL Sodium (137-145) mmol/L Potassium (3.4-5.1) mmol/L Chloride (98-107) mmol/L Carbon Dioxide (22-32) mmol/L BUN (7-17) mg/dL Creatinine (0.52-1.04) mg/dL Estimated GFR (>60) mL/min BUN/Creatinine Ratio (6-22) Glucose (80-110) mg/dL Lactate (0.7-2.1) mmol/L Calcium (8.4-10.2) mg/dL Total Bilirubin (0.2-1.3) mg/dL AST (14-36) IU/L ALT (<35) IU/L Alkaline Phosphatase (38-126) U/L Total Creatine Kinase (30-135) U/L CK-MB (CK-2) (<2.37) ng/mL CK-MB (CK-2) Rel Index (1.5-5.0) % Troponin I (0.01-0.034) ng/mL NT-Pro-B Natriuret Pep (<450) pg/mL Total Protein (6.3-8.2) g/dL Albumin (3.5-5.0) g/dL Globulin (1.7-4.1) g/dL Albumin/Globulin Ratio (1.0-2.8) Procalcitonin (<0.5) ng/mL Urine Color Yellow Urine Appearance Sl cloudy Urine pH 6.5 (4.5-8.0) Ur Specific [place] 1.015 (1.000-1.035) Urine Protein Negative (Negative) Urine Glucose (UA) Negative (Negative) g/dL Urine Ketones 1+ H (NEGATIVE) Urine Occult Blood 3+ H (Negative) Urine Nitrate Positive H (Negative) Urine Bilirubin Negative (NEGATIVE) Urine Urobilinogen 0.2 (0.2) E.U./dL Ur Leukocyte Esterase Negative (NEGATIVE) Urine RBC 1-5/hpf (0-5/HPF) Urine WBC 1-5/hpf (0-5/HPF) Ur Squamous Epith Cells 1-5 /hpf (0-5/HPF) Urine Bacteria Many (>30) H (None) Ur Culture Indicated? Specimen cultured U Opiates 300ng/mL cut Negative (Negative) Ur Oxycodone Screen Negative (Negative) Urine Methadone Screen Negative (Negative) Ur Barbiturates Screen Negative (Negative) U Tricyclic Antidepress Negative (Negative) Ur Phencyclidine Scrn Negative (Negative) Ur Amphetamines Screen Negative (Negative) U Methamphetamines Scrn Negative (Negative) Ur MDMA Scrn (Ecstasy) Negative (Negative) U Benzodiazepines Scrn Negative (Negative) Urine Cocaine Screen Negative (Negative) U Marijuana (THC) Screen Negative (Negative) Ethyl Alcohol ( - 10) mg/dL SARS-CoV-2 (PCR) Positive H (Negative) Imaging Data Chest x-ray: Radiologist Impression: nt: Carmen Contreras MR#: [id number] : 1945 Acct:[id number] Age/Sex: 77 / F Date of Service: 05/17/22 Loc: ED Accession Number: [id number] ?? Procedure: XR chest 1V Ordering Provider: Mayuri Helm D.O. PROCEDURE:? XR CHEST 1V ? INDICATIONS:? fall weakness ? TECHNIQUE:? One view of the chest was acquired.? ? COMPARISON:? None. ? FINDINGS:? ? Surgical changes and devices:? None.? ? Lungs and pleura:? Lungs are clear.? No pleural effusions or pneumothorax.? ? Mediastinum:? Mediastinal contours appear normal.? Heart size is normal.? ? Bones and chest wall:? No suspicious bony lesions.? Overlying soft tissues appear unremarkable.? ? IMPRESSION:? No acute cardiopulmonary disease process. ? ? Dictated by: Jeannette Deal MD, PhD on 05/17/2022 at 14:17 ? ? CT scan - head: Radiologist Impression: CT Scan Report Signed Patient: Carmen Contreras MR#: [id number] : 1945 Acct:[id number] Age/Sex: 77 / F Date of Service: 05/17/22 Loc: ED Accession Number: [id number] ?? Procedure: CT head/brain wo con Ordering Provider: Mayuri Helm D.O. PROCEDURE:? CT HEAD/BRAIN WO CON ? INDICATIONS:? fall ? TECHNIQUE:? Noncontrast 4.5 mm thick angled axial sections acquired from the foramen magnum to the vertex, with coronal and sagittal reformats.? For radiation dose reduction, the following was used:? automated exposure control, adjustment of mA and/or kV according to patient size.? ? COMPARISON:? , CT, CT HEAD/BRAIN WO CON, 03/03/2019, 19:49. ? FINDINGS:? Image quality:? Excellent.? ? CSF spaces:? Basal cisterns are patent.? No extra-axial fluid collections.? The ventricles are symmetric in size and shape.? ? Brain:? No intracranial bleeds or masses.? There is cerebral volume loss for age, with resultant ventricular and sulcal prominence.? There are periventricular and deep white matter chronic small vessel ischemic changes.? There is intracranial internal carotid artery atherosclerosis.? ? Skull and face:? Calvarium and visualized facial bones appear intact, without suspicious lesions.? ? Sinuses:? Visualized sinuses and mastoids are clear.? ? IMPRESSION:? ? 1. No acute intracranial process. ? 2. Moderate to severe atrophy and chronic microvascular ischemic changes. ? ? ? Dictated by: Mary Hodgson M.D. on 05/17/2022 at 14:14 ? ? Approved by: Mary Hodgson M.D. on 05/17/2022 at 14:15 ? CT - cervical spine: Radiologist Impression: CT Scan Report Signed Patient: Carmen Contreras MR#: [id number] : 1945 Acct:[id number] Age/Sex: 77 / F Date of Service: 05/17/22 Loc: ED Accession Number: [id number] ?? Procedure: CT cervical spine wo con Ordering Provider: Mayuri Helm D.O. PROCEDURE:? CT CERVICAL SPINE WO CON ? INDICATIONS:? fall ? TECHNIQUE:? Noncontrast 3 mm thick sections acquired from the skull base to the T4 level.? Sagittal and coronal reformats were then constructed.? For radiation dose reduction, the following was used:? automated exposure control, adjustment of mA and/or kV according to patient size.? ? COMPARISON:? , CT, CT FACIAL BONES WO CON, 05/17/2022, 13:33. ? FINDINGS:? Image quality:? Excellent.? ? Bones:? No fractures or dislocations.? Visualized superior ribs are intact.? Multilevel degenerative changes are present. ? Soft tissues:? Prevertebral soft tissues are normal in thickness.? No paravertebral hematomas.? No apical pneumothoraces.? ? ? IMPRESSION:? Degenerative changes without visualized fracture. ? CT face: Radiologist Impression: [place] [address] CT Scan Report Signed Patient: Carmen Contreras MR#: [id number] : 1945 Acct:[id number] Age/Sex: 77 / F Date of Service: 05/17/22 Loc: ED Accession Number: [id number] ?? Procedure: CT facial bones wo con Ordering Provider: Mayuri Helm D.O. PROCEDURE:? CT FACIAL BONES WO CON ? INDICATIONS:? fall ? TECHNIQUE:? Noncontrast 2.5 mm thick axial images acquired from the mandible through the frontal sinuses, with coronal and sagittal reformatting.? For radiation dose reduction, the following was used:? automated exposure control, adjustment of mA and/or kV according to patient size.? ? COMPARISON:? , CT, CT HEAD/BRAIN WO CON, 03/03/2019, 19:49. ? FINDINGS:? Image quality:? Excellent.? ? Bones and teeth:? Orbital proctor are intact.? Sinus proctor show no fracture or deformity.? Nasal bone show slight discontinuity, new compared to prior exam.? Slight overlying soft tissue edema is present.? Visualized portions of the mandible demonstrate no fractures or subluxation.? Zygomatic arches are intact.? Pterygoid plates are intact.? Visualized portions of the skull base and auditory canals are intact.? ? Sinuses:? Paranasal sinuses are aerated, without fluid levels, mucosal thickening, or mucoceles.? Mastoid air cells are aerated.? ? Soft tissues:? No edema, masses, or fluid collections.? No enlarged lymph nodes.? No soft tissue lacerations or debris.? ? Vascular:? Visualized vascular structures appear normal in the absence of contrast.? Bony vascular foramina and canals are intact.? ? IMPRESSION:? ? Slight nasal bone discontinuity most suggestive of fracture, given new since 2019 with recent history of trauma and soft tissue edema. ? ? Dictated by: Mary Hodgson M.D. on 05/17/2022 at 14:20 ? ? ECG Data Interpretation: Normal sinus rhythm rate 67 NM interval 202 QRS 82 QTC 426 T-wave inversions noted in lead 3 and AVF similar to previous EKG in 2019. No ST changes new ischemic changes. MDM Narrative Medical decision making narrative: Patient is found to be COVID positive generalized weakness. Falling she has mild rhabdomyolysis with CPK 1400. She has multiple areas of bruising. She is also found to have a UTI as well. Some like she is pretty independent in this is a significant change. She is not hypoxic from COVID. PT evaluation has been placed, they were unable to evaluate before the end of the day. Dr. Cat Admits for observation Discharge Plan Departure Patient Disposition: Admitted as Observation Admit Date/Time: 05/17/22 16:36 Admit Provider: Bora Cat
[2022-05-17 14:34] LABS: Lactate (Lactic Acid) 1.4 mmol/L (0.7-2.1)
[2022-05-17 14:56] LABS: COVID19 -Nasal RAPID POSITIVE (Negative)
[2022-05-17 15:23] LABS: NT-proBNP (BNP-Adult 18+) 439 pg/mL (<450)
[2022-05-17 15:23] LABS: Appearance Urine UA SL CLOUDY; Bilirubin Urine UA NEGATIVE (NEGATIVE); Color Urine UA YELLOW; Glucose Urine UA NEGATIVE (Negative); Ketones Urine UA 1+ (NEGATIVE); Leukocyte Esterase Urine UA NEGATIVE (NEGATIVE); Nitrite Urine UA POSITIVE (Negative); Occult Blood Urine UA 3+ (Negative); Protein Urine UA NEGATIVE (Negative); Specific Gravity Urine UA 1.015 (1.000-1.035); Urobilinogen Urine UA 0.2 E.U./dL (0.2)
[2022-05-17 15:34] LABS: pH Urine UA 6.5 (4.5-8.0)
[2022-05-17 15:40] LABS: UR Morphine/Opiate cutoff 300 Negative (Negative); Ur Creatinine Normal (Normal); Ur Specific Gravity Normal (Normal); Urine Amphetamines Negative (Negative); Urine Barbiturates Negative (Negative); Urine Benzodiazepines Negative (Negative); Urine Cocaine Negative (Negative); Urine MDMA Negative (Negative); Urine Methadone Negative (Negative); Urine Methamphetamines Negative (Negative); Urine Oxycodone Negative (Negative); Urine Phencyclidine Negative (Negative); Urine Tetrahydrocannabinol Negative (Negative); Urine Tricyclic Antidepressant Negative (Negative); Urine pH Normal (Normal)
[2022-05-17 16:07] LABS: RBC Urine 1-5/HPF (0-5/HPF); WBC Urine 1-5/HPF (0-5/HPF)
[2022-05-17 16:08] LABS: Bacteria Urine Many (>30); Culture Indicated Urine Specimen Cultured; Squamous Epithelial Cell Urine 1-5 /HPF (0-5/HPF)
--- NOTE | 2022-05-17 17:16 | PC.NURSE ---
Day shift: Pt on AC unit from ED at approx 1705. 1 person assist from WC to bed. Was able to pivot to BSC in ED per report. Zarate cath came out in ED when Pt having a BM. ED RN reports it was a watery and loose stool. Oriented to room and call light. DWAIN Garcia is cleaning Pt's face. Call light in reach. Pt agrees to not get OOB w/o help from staff.
--- NOTE | 2022-05-17 17:47 | P.HP_ITS ---
History of Present Illness History of Present Illness Date Patient Seen: 05/17/22 Time Patient Seen: 17:47 Chief complaint: generalized weakness, ? black eye Narrative: This is a 77-year-old female with a past medical history of hypertension, asthma, hypothyroidism, and prior TIA who was brought in by EMS after her grandson called for worsening weakness and a bruise on her face that was new. The patient denies any current complaints including pain, shortness of breath, though does endorse she is quite weak. She denies any overt falls. She states that she woke up this morning with the bruise on her face and does not recall how it got there. She woke up in her bed and had not soiled herself and there were no apparent stains in her bedroom. She denies any chest pain, shortness of breath. She does note a cough that started a couple of days ago. She has been feeling weak for about 3 days now. She denies any fevers or chills, abdominal pain, dysuria, but may have had some urinary frequency. She had a loose stool while she was in the emergency room but no prior diarrhea or constipation. She received the Jose and Jose COVID vaccine, but no boosters. In the emergency room, her CBC was notable for a mild leukopenia and thrombocytopenia at 4.3, and 117 respectively. Chemistries revealed a mild hypokalemia with potassium of 3.3, mild elevation in her AST at 81 likely secondary to rhabdomyolysis given her CK of 1486. Troponin was negative. ProBNP was within normal limits. Procalcitonin was within normal limits at 0.10. Urinalysis was grossly positive with positive nitrites and many bacteria and was reflex for culture. Urine drug screen was negative. COVID-19 testing was positive. Patient was admitted under observation status given her weakness, frequent falls, and rhabdomyolysis. Patient History Medical History Asthma Dyspepsia Frequent UTI Hypertension Hypothyroid Surgical History History of cataract surgery History of ventral hernia repair Family & Social History Family History Father Cancer Mother Hemorrhagic cerebrovascular accident (CVA) Sister Cancer Daughter Optic nerve tumor Social History: household members none Safety & Behavioral: Feels Safe in Current Yes Environment Been Physically Hurt or No Threatened By a Person Tobacco & Substance use: Smoking Status Never smoker alcohol intake current alcohol intake frequency 3 or more drinks per day Substance Use Type does not use Meds Home Medications and Allergies Home Medications Medication Instructions Recorded Confirmed Type CHOLECALCIFEROL (VITAMIN D3) 40 mg PO BID ##0 04/10/13 01/18/21 History (Vitamin D3) atenolol 50 mg tablet 50 mg PO QDAY ##0 04/10/13 05/17/22 History calcium acetate(phosphat bind) 667 667 mg PO DAILY ##0 04/10/13 01/18/21 History mg capsule albuterol sulfate 90 mcg/actuation 1 puff inhalation Q4-6H PRN 09/08/18 01/18/21 History aerosol inhaler Wheezing beclomethasone dipropionate 80 1 puff inhalation BID 03/03/19 01/18/21 History mcg/actuation HFA breath activated aerosol (Qvar RediHaler) levothyroxine 50 mcg tablet 50 mcg PO DAILY 03/03/19 05/17/22 History atorvastatin 20 mg tablet (Lipitor) 40 mg PO BEDTIME #30 tabs 03/05/19 05/17/22 Rx clopidogrel 75 mg tablet 1 tab PO DAILY 05/17/22 05/17/22 History lisinopril 10 mg tablet 20 mg PO DAILY 05/17/22 History pantoprazole 40 mg tablet,delayed 1 tab PO BID 05/17/22 05/17/22 History release Allergies Allergy/AdvReac Type Severity Reaction Status Date / Time codeine AdvReac Intermediate SEVERE Verified 07/27/20 14:35 NAUSEA/VOMITING Review of Systems Review of Systems Narrative: All other systems reviewed with the patient and are negative unless otherwise stated. Exam Vital Signs (past 8 hours): - 05/17/22 13:17 05/17/22 13:09 05/17/22 13:30 Temperature 98.7 F Pulse Rate 65 71 69 Respiratory Rate 24 18 33 H Blood Pressure 174/75 H Pulse Oximetry 97 97 97 Oxygen Delivery Method Room Air 05/17/22 13:42 05/17/22 13:42 05/17/22 14:00 Temperature Pulse Rate 69 Respiratory Rate 19 Blood Pressure 169/72 H 192/79 H Pulse Oximetry 98 Oxygen Delivery Method 05/17/22 14:00 05/17/22 14:30 05/17/22 15:30 Temperature Pulse Rate 69 70 72 Respiratory Rate 25 H 23 20 Blood Pressure Pulse Oximetry 96 99 95 Oxygen Delivery Method Oxygen Delivery Method Room Air Narrative Exam Narrative: General:? Patient is well developed and well nourished, in no distress at this time. HEENT:? Normocephalic, ecchymosis around L eye medially. Moist mucous membranes. Neck: supple and symmetric, trachea is midline, no cervical adenopathy. Negative for JVD Chest:? Normal AP diameter and contour without kyphoscoliosis, no tachypnea, equal chest rise bilaterally. Lungs:? CTA b/l no wheezing rhonchi or rales. Cardio:?RRR no m/r/g. Abdomen: S NT ND. No CVA tenderness. Musculoskeletal:? Muscle strength and tone are equal within normal limits, no deformity. Extremities: No edema or joint effusions. No cyanosis or clubbing. Skin:? Pale,? Warm to touch,dry and intact without rashes, ulcerations or petechiae.?There is scattered bruising in her distal extremities, more prevalent on her left side than right. Neuro:? Alert and orientated x3,? sensation to touch intact in all extremities, no gross deficits noted of cranial nerves. Psych:? Patient has a well-kept appearance, appropriate affect, mental status attitude thought context and judgment are appropriate for age. Objective ECG Impression: Normal sinus rhythm as interpreted by me. Labs Result Diagrams: 05/17/22 13:12 05/17/22 13:12 Labs: Laboratory Results - last 24 hr 05/17/22 05/17/22 05/17/22 13:12 13:12 13:12 WBC 4.3 L RBC 4.09 Hgb 13.0 Hct 38.9 MCV 95.1 MCH 31.7 MCHC 33.3 RDW 13.1 Plt Count 117 L Neut % (Auto) 66.2 Lymph % (Auto) 16.0 L Beckham % (Auto) 17.3 H Eos % (Auto) 0.1 L Baso % (Auto) 0.4 Neut # (Auto) 2900 Lymph # (Auto) 700 L Beckham # (Auto) 800 Eos # (Auto) 0 Baso # (Auto) 0 Sodium 137 Potassium 3.3 L Chloride 104 Carbon Dioxide 27 BUN 18 H Creatinine 0.71 Estimated GFR > 60 BUN/Creatinine Ratio 25.4 H Glucose 82 Lactate Calcium 8.9 Total Bilirubin 0.5 AST 81 H ALT 30 Alkaline Phosphatase 74 Total Creatine Kinase 1486 H CK-MB (CK-2) 5.38 H CK-MB (CK-2) Rel Index 0.4 L Troponin I < 0.012 NT-Pro-B Natriuret Pep Total Protein 6.6 Albumin 4.1 Globulin 2.5 Albumin/Globulin Ratio 1.6 Procalcitonin Urine Color Urine Appearance Urine pH Ur Specific Buxton Urine Protein Urine Glucose (UA) Urine Ketones Urine Occult Blood Urine Nitrate Urine Bilirubin Urine Urobilinogen Ur Leukocyte Esterase Urine RBC Urine WBC Ur Squamous Epith Cells Urine Bacteria Ur Culture Indicated? U Opiates 300ng/mL cut Ur Oxycodone Screen Urine Methadone Screen Ur Barbiturates Screen U Tricyclic Antidepress Ur Phencyclidine Scrn Ur Amphetamines Screen U Methamphetamines Scrn Ur MDMA Scrn (Ecstasy) U Benzodiazepines Scrn Urine Cocaine Screen U Marijuana (THC) Screen Ethyl Alcohol < 10 SARS-CoV-2 (PCR) 05/17/22 05/17/22 05/17/22 13:12 13:50 13:50 WBC RBC Hgb Hct MCV MCH MCHC RDW Plt Count Neut % (Auto) Lymph % (Auto) Beckham % (Auto) Eos % (Auto) Baso % (Auto) Neut # (Auto) Lymph # (Auto) Beckham # (Auto) Eos # (Auto) Baso # (Auto) Sodium Potassium Chloride Carbon Dioxide BUN Creatinine Estimated GFR BUN/Creatinine Ratio Glucose Lactate 1.4 Calcium Total Bilirubin AST ALT Alkaline Phosphatase Total Creatine Kinase CK-MB (CK-2) CK-MB (CK-2) Rel Index Troponin I NT-Pro-B Natriuret Pep 439 Total Protein Albumin Globulin Albumin/Globulin Ratio Procalcitonin 0.10 Urine Color Urine Appearance Urine pH Ur Specific Buxton Urine Protein Urine Glucose (UA) Urine Ketones Urine Occult Blood Urine Nitrate Urine Bilirubin Urine Urobilinogen Ur Leukocyte Esterase Urine RBC Urine WBC Ur Squamous Epith Cells Urine Bacteria Ur Culture Indicated? U Opiates 300ng/mL cut Ur Oxycodone Screen Urine Methadone Screen Ur Barbiturates Screen U Tricyclic Antidepress Ur Phencyclidine Scrn Ur Amphetamines Screen U Methamphetamines Scrn Ur MDMA Scrn (Ecstasy) U Benzodiazepines Scrn Urine Cocaine Screen U Marijuana (THC) Screen Ethyl Alcohol SARS-CoV-2 (PCR) 05/17/22 05/17/22 05/17/22 14:03 14:50 14:50 WBC RBC Hgb Hct MCV MCH MCHC RDW Plt Count Neut % (Auto) Lymph % (Auto) Beckham % (Auto) Eos % (Auto) Baso % (Auto) Neut # (Auto) Lymph # (Auto) Beckham # (Auto) Eos # (Auto) Baso # (Auto) Sodium Potassium Chloride Carbon Dioxide BUN Creatinine Estimated GFR BUN/Creatinine Ratio Glucose Lactate Calcium Total Bilirubin AST ALT Alkaline Phosphatase Total Creatine Kinase CK-MB (CK-2) CK-MB (CK-2) Rel Index Troponin I NT-Pro-B Natriuret Pep Total Protein Albumin Globulin Albumin/Globulin Ratio Procalcitonin Urine Color Yellow Urine Appearance Sl cloudy Urine pH 6.5 Ur Specific Buxton 1.015 Urine Protein Negative Urine Glucose (UA) Negative Urine Ketones 1+ H Urine Occult Blood 3+ H Urine Nitrate Positive H Urine Bilirubin Negative Urine Urobilinogen 0.2 Ur Leukocyte Esterase Negative Urine RBC 1-5/hpf Urine WBC 1-5/hpf Ur Squamous Epith Cells 1-5 /hpf Urine Bacteria Many (>30) H Ur Culture Indicated? Specimen cultured U Opiates 300ng/mL cut Negative Ur Oxycodone Screen Negative Urine Methadone Screen Negative Ur Barbiturates Screen Negative U Tricyclic Antidepress Negative Ur Phencyclidine Scrn Negative Ur Amphetamines Screen Negative U Methamphetamines Scrn Negative Ur MDMA Scrn (Ecstasy) Negative U Benzodiazepines Scrn Negative Urine Cocaine Screen Negative U Marijuana (THC) Screen Negative Ethyl Alcohol SARS-CoV-2 (PCR) Positive H Assessment & Plan Assessment & Plan narrative: 1. Rhabdomyoylsis - continue IV fluids overnight - given unclear story, denial of falls but clear bruising, social work evaluation - patient drinks wine daily, consider EtOH withdrawal seizure as well though not currently consistent with withdrawal. Will start CIWA precautions 2. Presumed ground level fall, weakness - PT/ OT evaluations - consider chronic EtOH use as a cause. 3. COVID 19 infection - continue symptomatic treatment 4. Acute cystitis - continue ceftriaxone x3 days, follow up cultures 5. History of TIA - continue home plavix 6. nasal bone fracture - noted on CT face. Patient without symptoms, recommend outpatient follow up. Code: Full as discussed with the patient Surrogate: patient's daughter Dispo: admit observation DVT: lovenox daily I have utilized all available immediate resources to obtain, update, or review the patient's current medications. Time Spent With Patient Critical Care time: I spent a total of [] minutes of critical care time on this patient's care tod ay; this time is exclusive of procedural time. Quality MIPS - Admit I confirm the patient?s Advance Care Plan is present, Code status is documented, Surrogate decision maker is in patient?s record [If Yes, STOP here]: Yes
[2022-05-17] MEDS: SODIUM CHLORIDE 0.9% 1,000 ML 100 ML IV (17:48)
--- NOTE | 2022-05-17 18:21 | PC.NURSE ---
Pts cath came out prior to transfer upstairs. Baloon was deflated. no trauma. pt was having a BM.
[2022-05-17] MEDS: cefTRIAXone 1,000 MG in SODIUM CHLORIDE 0.9% 100 ML 200 MG IV (18:37)
[2022-05-17] MEDS: atenoloL 50 MG TABLET PO (18:56)
[2022-05-17] MEDS: ATORVASTATIN 20 MG TABLET 40 MG PO (20:24)
[2022-05-17] MEDS: PANTOPRAZOLE DR 40 MG TABLET PO (20:24)
--- NOTE | 2022-05-17 23:30 | PC.NURSE ---
Patient is alert and mostly oriented; did not know day of month or day of week and uncertain why she is in the hospital other than to say her grandson brought her. Breath sounds w/crackles in left LL; RA sat 96%. HRR. Continues to trend high on BP with recent reading of 163/71. Denied nausea. BT present and abdomen is soft. Denied dysuria, frequency or urgency with urination. Is able to turn herself in bed. Assisted to BSC with walker and 1 assist; seems very weak and is slow in movements. Wearing bilateral calf SCD's. Denied pain. On covid precautions but is asymptomatic. Fall risk score is high and bed alarm is activated. CIWA score is 0.
[2022-05-18] VITALS (10 sets, daily range): BP systolic 136–181; BP diastolic 59–74; PULSE 52–67; RESP 14–20; TEMP 36.4–37.9; O2SAT 94–97
[2022-05-18] MEDS: SODIUM CHLORIDE 0.9% 1,000 ML 100 ML IV ×2 (05:55→15:38)
[2022-05-18] MEDS: ACETAMINOPHEN 325 MG TABLET 975 MG PO (06:05)
[2022-05-18 06:54] LABS: Add Manual Diff / Slide Review NO; Basophils Absolute Auto 0 /uL (0-100); Basophils Percent Auto 0.6 % (0-2); Eosinophils Absolute Auto 0 /uL (0-450); Eosinophils Percent Auto 0.1 % (2-4); Hematocrit 38.5 % (36-46); Hemoglobin 13.1 g/dL (12.0-16.0); Lymphocytes Absolute Auto 900 /uL (1100-4500); Monocytes Absolute Auto 600 /uL (0-900); Monocytes Percent Auto 16.2 % (3-14); Neutrophils Absolute Auto 2200 /uL (1500-7000); Neutrophils Percent Auto 59.1 % (50-75); Platelet Count 110 X10^3/uL (150-400); Red Blood Cell Count 4.09 X10^6/uL (4.0-5.2); Red Cell Distribution Width 12.9 % (11.6-14.8); White Blood Cell Count 3.6 X10^3/uL (4.5-11.0)
[2022-05-18 07:04] LABS: BUN Creatinine Ratio 17.7 (6-22); Blood Urea Nitrogen 11 mg/dL (7-17); Calcium 8.2 mg/dL (8.4-10.2); Carbon Dioxide 25 mmol/L (22-32); Chloride 107 mmol/L (98-107); Estimated Glomerular Filt Rate > 60 mL/min (>60); Glucose 78 mg/dL (80-110); HEMOLYSIS < 15 (0-50); Magnesium 1.8 mg/dL (1.6-2.3); Potassium 2.9 mmol/L (3.4-5.1); Sodium 137 mmol/L (137-145)
[2022-05-18 07:31] LABS: Creatine Kinase 1226 U/L (30-135)
--- NOTE | 2022-05-18 09:17 | CM.DANOTE ---
Addendum entered by Mckayla Christensen R.N. 05/18/22 10:08: Spoke with Dr. Cat, Social Work Consult ordered. No renal social worker here today. CURRENCY EXCHANGE SPECIALIST to be in tomorrow. Mckayla Christensen RN/PREM Original Note: DCP Assessment: Payor: Cole PCP: MD Kevin Pt is a 77 y.o. F who was brought to the ED for generalized weakness and grandson noticing bruise on her face and hand. Pt has tested positive for Covid. It has also been noted that pt has UTI. Suspect ground level fall. Pt is admitted for observation. DCP unable to enter room due to COVID precautions. DCP called Mohan fleming, for more information on pt baseline activity level. Mohan stated that he noticed a bruise on her eye on night and noticed that she has been having more days where she is tired and does not want to do anything. He states that pt is very independent at baseline and [place] in [place]. He states that she enjoys going outside to feed the animals. Mohan denies pt use of any DME's. Mohan moved in with his grandma in the last few weeks. Pt was living alone. Mohan states that she remembers going to the restroom on and seeing the bruises but she cannot remember how they got there. Mohan denies any previous HH use for pt. DCP answered Mohan's questions to the best of her ability. DCP contact info provided to Mohan to call with any other questions that might arise. White board not updated. DCP to continue to follow pt care. P: Once pt is medically stable to discharge, pt will discharge back home via [facility] PO. Mckayla Christensen RN/PREM Discharge Planning/Care Management CM Discharge Assessment Start: 05/18/22 09:16 Freq: Status: Active Protocol: Document 05/18/22 09:16 ANNA (Rec: 05/18/22 09:17 ANNA [id number]) Discharge Planning Assessment Assigned Licensed Midwife Mckayla Christensen RN/PREM Advance Directives? Yes Advance Directives on File No History Provided By Family Member Prior Living Arrangements House Household Members other Comment Bernadette just moved in a few weeks ago Type of transporation used prior to Relies on Others admit Independent with ADL's Yes Is patient alert and oriented? Yes Caregiver for Another No Barriers to Discharge No Discharge Plan Home Referrals Initiated None needed Additional Comment At this time Whiteboard Updated in Patient Room with No name and ext. # of Licensed Midwife Comment Unable to enter room due to covid precautions Review Status In Process Please Provide Date Initial DC 05/18/22 Assessment Was Performed Next Review Type Continued Stay Review
[2022-05-18] MEDS: MULTIVITAMIN 1 TABLET 1 TAB PO (09:25)
[2022-05-18] MEDS: ENOXAPARIN 40 MG/0.4 ML SYRINGE SUBCUT (09:25)
[2022-05-18] MEDS: atenoloL 50 MG TABLET PO (09:25)
[2022-05-18] MEDS: CLOPIDOGREL 75 MG TABLET PO (09:25)
[2022-05-18] MEDS: THIAMINE 100 MG TABLET PO (09:25)
[2022-05-18] MEDS: PANTOPRAZOLE DR 40 MG TABLET PO ×2 (09:25→20:00)
[2022-05-18] MEDS: FOLIC ACID 1 MG TABLET PO (09:25)
[2022-05-18] MEDS: lisinopriL 20 MG TABLET PO (09:25)
[2022-05-18] MEDS: POTASSIUM CHLORIDE 20 MEQ TAB 40 MEQ PO (09:26)
[2022-05-18] MEDS: LEVOTHYROXINE 50 MCG TABLET PO (09:28)
--- NOTE | 2022-05-18 11:15 | PT.IIE ---
Surgical History (Last Reviewed 05/17/22 @ 17:47 by Bora Cat DO) History of cataract surgery History of ventral hernia repair Medical History (Last Reviewed 05/17/22 @ 17:47 by Bora Cat DO) Asthma Dyspepsia Frequent UTI Hypertension Hypothyroid Physical Therapy Inpatient Evaluation/Re-Eval M1 PT/OT-IP Prior Functional Status Start: 05/18/22 13:22 Freq: NEEDED Status: Active Protocol: Document 05/18/22 11:15 AB (Rec: 05/18/22 13:57 AB [id number]) Medical Review Prior Functional Status Medical History Reviewed Yes Communication able to answer questions inconsistently with very faint voice; requires repetitions with instructions and questions Mobility and Gait pt stated that she is modified independent with all mobilities and ambulation without AD Social History Household Members family Living Arrangements House Number of Floors (Floors) One Floor Number of Stairs To Enter/Railing? 2 steps B rails to enter Home Environment Standard Height Toilet,Walk in Shower Home Equipment Grab Bars Near Toilet,Grab Bars In Shower Additional Social History Comment pt stated that she lives with her grandson but her grandson works M2 PT-IP Current Condition Start: 05/18/22 13:22 Freq: NEEDED Status: Active Protocol: Document 05/18/22 11:15 AB (Rec: 05/18/22 13:57 [facility] Therapy Current Condition Current Condition Evaluation Date 05/18/22 Treatment Diagnosis Covid; rhabdomyolysis; difficulty in walking Onset Date 05/17/22 M3 PT-IP Subjective Start: 05/18/22 13:22 Freq: NEEDED Status: Active Protocol: Document 05/18/22 11:15 AB (Rec: 05/18/22 13:57 [facility] Subjective Physical Therapy Visit Type Type Initial Evaluation Visit Start Time 11:15 Visit Stop Time 11:45 Total Visit Minutes 30 Number of SALES EXECUTIVE INSURANCE Visits 0 Physical Therapy Visit Comments Patient Comments agreeable to do PT Therapy Pain Assessment Pain Present Pain Present Denied Pain M4 PT-IP Mobility and Gait Start: 05/18/22 13:22 Freq: NEEDED Status: Active Protocol: Document 05/18/22 11:15 AB (Rec: 05/18/22 13:57 AB [email or web address]) PT-Bed Mobility Assessment Supine to Sit Supine to Sit Minimal Assistance PT-Transfer Assessment Sit to and From Stand Sit to and from Stand Minimal Assistance,1 Person Assistance,Use of Upper Extremities Equipment Transfer Assistive Device Gait Belt,Front Wheeled Walker Orthotic/Prosthetic Devices or Brace: No Transfers Transfer Destination Chair Transfer Technique ambulated Transfer Ability Level of Assist Contact Guard Assistance, Minimal Assistance,Use of Upper Extremities Comments Mobility Comments pt completed supine to sit min A and cues. sitting balance CGA. pt with slow reactions and requires repeated cues and instructions. completed sit to stand min A and cues. ambulated with FWW ~ 12 ft using FWW CGA to min A. slow pace with decrease step lenght /width. assessed ambulation without AD and required min A ~ 10 ft completed. presents with guarded antalgic gait with wide SHANELL. pt agreed to sit on the chair. positioned on the chair. call light and table placed within reach. Gait Assessment Gait Gait Assistance Required: Contact Guard Assist,Minimum Assistance Distance (Feet) 12 Assistive Devices Assistive Device Gait Belt,Front Wheeled Walker Orthotic/Prosthetic Devices or Brace: No Gait Deviations General Gait Pattern Decreased Stride Length, Decreased Feet Clearance Factors Limiting Gait Function Factors Limiting Gait Function Decreased Activity Tolerance, Decreased Strength,Difficulty Following Directions,Poor Balance,Poor Safety Awareness PT-Balance Assessment Sitting Balance and Reactions Static Sitting Balance Ability Good Dynamic Sitting Balance Ability Fair Standing Balance and Reactions Static Standing Balance Ability Fair Dynamic Standing Balance Ability Poor Device Used without AD M5 PT-IP Objective Assessments Start: 05/18/22 13:22 Freq: NEEDED Status: Active Protocol: Document 05/18/22 11:15 AB (Rec: 05/18/22 13:57 AB [id number]) Orientation Orientation/Cognition Level of Alertness Confusional State Orientation Name Safety Awareness Decreased Safety Awareness Memory Description Short Term Impaired Comments very faint voice and requires time to answer questions Gross Range of Motion Lower Extremity ROM Assessment Within Functional Limits Strength Lower Extremity Strength Hip 4-/5 Knee 4-/5 Sensation Assessment Sensation Gross Sensation WNL Muscle Tone Muscle Tone WNL Yes M6 PT-IP Treatment Start: 05/18/22 13:22 Freq: NEEDED Status: Active Protocol: Document 05/18/22 11:15 AB (Rec: 05/18/22 13:57 AB [email or web address]) Physical Therapy Treatment Education Education Provided Safety M7 PT-IP Assessment and Plan Start: 05/18/22 13:22 Freq: NEEDED Status: Active Protocol: Document 05/18/22 11:15 AB (Rec: 05/18/22 13:57 AB [id number]) PT Summary Assessment and Plan Potential Rehabilitation Potential Fair Status of Condition at Evaluation Evolving Summary Impairments Pain,ROM,Strength,Balance, Coordination,Sensation,Tone, Cognition,Bed Mobility, Transfers,Gait,Activity Tolerance Assessment Summary pt requiring CGA to min A with mobility but with decrease activity tolerance and decrease safety awareness affecting mobility independence. pt has limited assistance at home and will need 24/7 assist at this time. d/c plan depending on safety : SNF vs 24/7 assist at home and services. will continue to assess progress. Goals Bed Mobility Goal Independent Transfer Goal Standby Assistance,Front Wheeled Walker Gait Goal Standby Assistance,Front Wheel Walker Gait Distance 150 Other Goals improve ambulation without AD 150 ft SBA up/down 2 steps B rails SBA Days to Meet Goals 10 Frequency of Treatment Frequency Of Treatment Once a Day Treatment Plan Physical Therapy Treatment Plan Bed Mobility Training,Transfer Training,Gait Training, Therapeutic Exercise,Balance Retraining,Post Op Education, Discharge Planning,Hot or Cold Pack,Neuromuscular Re-ed, Coordination Retraining,Manual Therapy Precautions Other Precautions falls; Covid Recommendations To Nursing Amount of Assist Needed 1 Person Assist Discharge Recommendations PT Discharge Recommendations Home with 24/7 Assist Available,Home Health,SNF Rehab,Home vs SNF Equipment Needed for Home Before FWW if pt goes home Discharge Transportation Needs at Discharge Private Vehicle,Wheelchair/ Cabulance
--- NOTE | 2022-05-18 13:16 | PM.PN.1 ---
Subjective Subjective Date Patient Seen: 05/18/22 Interval history: Feeling a bit stronger today, but still weak. States she feels safe at home, does not recall any falls. Exam Vital Signs (past 8 hours): - 05/18/22 05:26 05/18/22 06:05 05/18/22 05:26 Temperature 100.2 F H 100.2 F H Pulse Rate 62 Respiratory Rate 15 Blood Pressure 136/59 L Pulse Oximetry 94 94 Oxygen Delivery Method Room Air Oxygen Flow Rate 0 05/18/22 09:43 05/18/22 09:43 05/18/22 09:47 Temperature 98.2 F Pulse Rate 61 Respiratory Rate 14 Blood Pressure 136/65 Pulse Oximetry 94 94 Oxygen Delivery Method Room Air Room Air Oxygen Flow Rate 05/18/22 12:51 Temperature Pulse Rate Respiratory Rate Blood Pressure Pulse Oximetry 94 Oxygen Delivery Method Room Air Oxygen Flow Rate Oxygen Delivery Method Room Air Oxygen Flow Rate 0 Narrative Exam Narrative: General:? Patient is well developed and well nourished, in no distress at this time. HEENT:? Normocephalic, ecchymosis around L eye medially. Moist mucous membranes. Neck: supple and symmetric, trachea is midline, no cervical adenopathy. Negative for JVD Chest:? Normal AP diameter and contour without kyphoscoliosis, no tachypnea, equal chest rise bilaterally. Lungs:? CTA b/l no wheezing rhonchi or rales. Cardio:?RRR no m/r/g. Abdomen: S NT ND. No CVA tenderness. Musculoskeletal:? Muscle strength and tone are equal within normal limits, no deformity. Extremities: No edema or joint effusions. No cyanosis or clubbing. Skin:? Pale,? Warm to touch,dry and intact without rashes, ulcerations or petechiae.?There is scattered bruising in her distal extremities, more prevalent on her left side than right. Neuro:? Alert and orientated x3,? sensation to touch intact in all extremities, no gross deficits noted of cranial nerves. Psych:? Patient has a well-kept appearance, appropriate affect, mental status attitude thought context and judgment are appropriate for age. Objective Labs Result Diagrams: 05/18/22 06:15 05/18/22 06:15 Labs: Laboratory Results - last 24 hr 05/17/22 05/17/22 05/17/22 13:12 13:12 13:12 WBC 4.3 L RBC 4.09 Hgb 13.0 Hct 38.9 MCV 95.1 MCH 31.7 MCHC 33.3 RDW 13.1 Plt Count 117 L Neut % (Auto) 66.2 Lymph % (Auto) 16.0 L Rice % (Auto) 17.3 H Eos % (Auto) 0.1 L Baso % (Auto) 0.4 Neut # (Auto) 2900 Lymph # (Auto) 700 L Rice # (Auto) 800 Eos # (Auto) 0 Baso # (Auto) 0 Sodium 137 Potassium 3.3 L Chloride 104 Carbon Dioxide 27 BUN 18 H Creatinine 0.71 Estimated GFR > 60 BUN/Creatinine Ratio 25.4 H Glucose 82 Lactate Calcium 8.9 Magnesium Total Bilirubin 0.5 AST 81 H ALT 30 Alkaline Phosphatase 74 Total Creatine Kinase 1486 H CK-MB (CK-2) 5.38 H CK-MB (CK-2) Rel Index 0.4 L Troponin I < 0.012 NT-Pro-B Natriuret Pep Total Protein 6.6 Albumin 4.1 Globulin 2.5 Albumin/Globulin Ratio 1.6 Procalcitonin Urine Color Urine Appearance Urine pH Ur Specific [place] Urine Protein Urine Glucose (UA) Urine Ketones Urine Occult Blood Urine Nitrate Urine Bilirubin Urine Urobilinogen Ur Leukocyte Esterase Urine RBC Urine WBC Ur Squamous Epith Cells Urine Bacteria Ur Culture Indicated? U Opiates 300ng/mL cut Ur Oxycodone Screen Urine Methadone Screen Ur Barbiturates Screen U Tricyclic Antidepress Ur Phencyclidine Scrn Ur Amphetamines Screen U Methamphetamines Scrn Ur MDMA Scrn (Ecstasy) U Benzodiazepines Scrn Urine Cocaine Screen U Marijuana (THC) Screen Ethyl Alcohol < 10 SARS-CoV-2 (PCR) 05/17/22 05/17/22 05/17/22 13:12 13:50 13:50 WBC RBC Hgb Hct MCV MCH MCHC RDW Plt Count Neut % (Auto) Lymph % (Auto) Rice % (Auto) Eos % (Auto) Baso % (Auto) Neut # (Auto) Lymph # (Auto) Rice # (Auto) Eos # (Auto) Baso # (Auto) Sodium Potassium Chloride Carbon Dioxide BUN Creatinine Estimated GFR BUN/Creatinine Ratio Glucose Lactate 1.4 Calcium Magnesium Total Bilirubin AST ALT Alkaline Phosphatase Total Creatine Kinase CK-MB (CK-2) CK-MB (CK-2) Rel Index Troponin I NT-Pro-B Natriuret Pep 439 Total Protein Albumin Globulin Albumin/Globulin Ratio Procalcitonin 0.10 Urine Color Urine Appearance Urine pH Ur Specific [place] Urine Protein Urine Glucose (UA) Urine Ketones Urine Occult Blood Urine Nitrate Urine Bilirubin Urine Urobilinogen Ur Leukocyte Esterase Urine RBC Urine WBC Ur Squamous Epith Cells Urine Bacteria Ur Culture Indicated? U Opiates 300ng/mL cut Ur Oxycodone Screen Urine Methadone Screen Ur Barbiturates Screen U Tricyclic Antidepress Ur Phencyclidine Scrn Ur Amphetamines Screen U Methamphetamines Scrn Ur MDMA Scrn (Ecstasy) U Benzodiazepines Scrn Urine Cocaine Screen U Marijuana (THC) Screen Ethyl Alcohol SARS-CoV-2 (PCR) 05/17/22 05/17/22 05/17/22 14:03 14:50 14:50 WBC RBC Hgb Hct MCV MCH MCHC RDW Plt Count Neut % (Auto) Lymph % (Auto) Rice % (Auto) Eos % (Auto) Baso % (Auto) Neut # (Auto) Lymph # (Auto) Rice # (Auto) Eos # (Auto) Baso # (Auto) Sodium Potassium Chloride Carbon Dioxide BUN Creatinine Estimated GFR BUN/Creatinine Ratio Glucose Lactate Calcium Magnesium Total Bilirubin AST ALT Alkaline Phosphatase Total Creatine Kinase CK-MB (CK-2) CK-MB (CK-2) Rel Index Troponin I NT-Pro-B Natriuret Pep Total Protein Albumin Globulin Albumin/Globulin Ratio Procalcitonin Urine Color Yellow Urine Appearance Sl cloudy Urine pH 6.5 Ur Specific [place] 1.015 Urine Protein Negative Urine Glucose (UA) Negative Urine Ketones 1+ H Urine Occult Blood 3+ H Urine Nitrate Positive H Urine Bilirubin Negative Urine Urobilinogen 0.2 Ur Leukocyte Esterase Negative Urine RBC 1-5/hpf Urine WBC 1-5/hpf Ur Squamous Epith Cells 1-5 /hpf Urine Bacteria Many (>30) H Ur Culture Indicated? Specimen cultured U Opiates 300ng/mL cut Negative Ur Oxycodone Screen Negative Urine Methadone Screen Negative Ur Barbiturates Screen Negative U Tricyclic Antidepress Negative Ur Phencyclidine Scrn Negative Ur Amphetamines Screen Negative U Methamphetamines Scrn Negative Ur MDMA Scrn (Ecstasy) Negative U Benzodiazepines Scrn Negative Urine Cocaine Screen Negative U Marijuana (THC) Screen Negative Ethyl Alcohol SARS-CoV-2 (PCR) Positive H 05/18/22 05/18/22 05/18/22 06:15 06:15 06:15 WBC 3.6 L RBC 4.09 Hgb 13.1 Hct 38.5 MCV 94.0 MCH 32.0 MCHC 34.0 RDW 12.9 Plt Count 110 L Neut % (Auto) 59.1 Lymph % (Auto) 24.0 L Rice % (Auto) 16.2 H Eos % (Auto) 0.1 L Baso % (Auto) 0.6 Neut # (Auto) 2200 Lymph # (Auto) 900 L Rice # (Auto) 600 Eos # (Auto) 0 Baso # (Auto) 0 Sodium 137 Potassium 2.9 L Chloride 107 Carbon Dioxide 25 BUN 11 Creatinine 0.62 Estimated GFR > 60 BUN/Creatinine Ratio 17.7 Glucose 78 L Lactate Calcium 8.2 L Magnesium 1.8 Total Bilirubin AST ALT Alkaline Phosphatase Total Creatine Kinase 1226 H CK-MB (CK-2) CK-MB (CK-2) Rel Index Troponin I NT-Pro-B Natriuret Pep Total Protein Albumin Globulin Albumin/Globulin Ratio Procalcitonin Urine Color Urine Appearance Urine pH Ur Specific [place] Urine Protein Urine Glucose (UA) Urine Ketones Urine Occult Blood Urine Nitrate Urine Bilirubin Urine Urobilinogen Ur Leukocyte Esterase Urine RBC Urine WBC Ur Squamous Epith Cells Urine Bacteria Ur Culture Indicated? U Opiates 300ng/mL cut Ur Oxycodone Screen Urine Methadone Screen Ur Barbiturates Screen U Tricyclic Antidepress Ur Phencyclidine Scrn Ur Amphetamines Screen U Methamphetamines Scrn Ur MDMA Scrn (Ecstasy) U Benzodiazepines Scrn Urine Cocaine Screen U Marijuana (THC) Screen Ethyl Alcohol SARS-CoV-2 (PCR) [facility] Medical History (Updated 05/17/22 @ 20:33 by Joleen Andrade RN) Asthma Dyspepsia Frequent UTI Hypertension Hypothyroid Surgical History History of cataract surgery History of ventral hernia repair Family History Father Cancer Mother Hemorrhagic cerebrovascular accident (CVA) Sister Cancer Daughter Optic nerve tumor Social History marital status: unknown household members: other Smoking Status: Never smoker alcohol intake: current substance use type: does not use Assessment & Plan Assessment & Plan narrative: 1. Rhabdomyoylsis - continue IV fluids, CK still >1000 but improving. No renal dysfunction. - given unclear story, denial of falls but clear bruising, social work evaluation. Patient does state she feels safe at home. - patient drinks wine daily, consider EtOH withdrawal seizure as well though not currently consistent with withdrawal. Continue CIWA precautions. 2. Presumed ground level fall, weakness - PT/ OT evaluations - consider chronic EtOH use as a cause, possibly worsened in setting of COVID and acute cystitis. 3. COVID 19 infection - continue symptomatic treatment 4. Acute cystitis - continue ceftriaxone x3 days, follow up cultures 5. History of TIA - continue home plavix 6. nasal bone fracture - noted on CT face. Patient without symptoms, recommend outpatient follow up. Code: Full as discussed with the patient Surrogate: patient's daughter Dispo: admit observation DVT: lovenox daily I have utilized all available immediate resources to obtain, update, or review the patient's current medications. Time Spent With Patient Critical Care time: I spent a total of [] minutes of critical care time on this patient's care today; this time is exclusive of procedural time. Quality VTE Deep Vein Thrombosis/Pulmonary Embolism Present on Admission: No
--- NOTE | 2022-05-18 16:11 | OT.IP.EVAL ---
Past Medical History (Last Reviewed 05/17/22 @ 17:47 by Bora Cat DO) Asthma Dyspepsia Frequent UTI Hypertension Hypothyroid Surgical History (Last Reviewed 05/17/22 @ 17:47 by Bora Cat DO) History of cataract surgery History of ventral hernia repair Occupational Therapy Inpatient Evaluation/Re-Eval M1 PT/OT-IP Prior Functional Status Start: 05/18/22 13:22 Freq: NEEDED Status: Active Protocol: Document 05/18/22 16:20 CGR (Rec: 05/18/22 16:34 R [id number]) Medical Review Prior Functional Status Medical History Reviewed Yes Communication able to answer questions inconsistently with very faint voice; requires repetitions with instructions and questions Mobility and Gait pt stated that she is independent with all mobilities and ambulation without AD Activities of Daily Living and IADL's Pt was IND for ADLs. Pt's grandson assist with some IADLs Social History Household Members family Living Arrangements House Number of Floors (Floors) One Floor Number of Stairs To Enter/Railing? 2 steps B rails to enter Home Environment Standard Height Toilet,Walk in Shower Home Equipment Grab Bars Near Toilet,Grab Bars In Shower Employment Status Retired Additional Social History Comment pt stated that she lives with her grandson but her grandson works M1 PT/OT-IP Prior Functional Status Start: 05/18/22 16:19 Freq: NEEDED Status: Active Protocol: Document 05/18/22 16:20 CGR (Rec: 05/18/22 16:34 CGR [id number]) Medical Review Prior Functional Status Medical History Reviewed Yes Communication able to answer questions inconsistently with very faint voice; requires repetitions with instructions and questions Mobility and Gait pt stated that she is independent with all mobilities and ambulation without AD Activities of Daily Living and IADL's Pt was IND for ADLs. Pt's grandson assist with some IADLs Social History Household Members family Living Arrangements House Number of Floors (Floors) One Floor Number of Stairs To Enter/Railing? 2 steps B rails to enter Home Environment Standard Height Toilet,Walk in Shower Home Equipment Grab Bars Near Toilet,Grab Bars In Shower Employment Status Retired Additional Social History Comment pt stated that she lives with her grandson but her grandson works M2 OT-IP Current Condition Start: 05/18/22 16:19 Freq: Status: Active Protocol: Document 05/18/22 16:20 CGR (Rec: 05/18/22 16:34 R [id number]) Occupational Therapy Current Condition Current Condition Evaluation Date 05/18/22 Treatment Diagnosis covid, fall, nasal fx, rhabdo Diagnosis Onset Date 05/18/22 M3 OT- IP Subjective and Pain Start: 05/18/22 16:19 Freq: Status: Active Protocol: Document 05/18/22 16:20 CGR (Rec: 05/18/22 16:34 CGR [id number]) OT- Subjective Occupational Therapy Visit Type Type Initial Evaluation Visit Start Time 15:42 Visit Stop Time 16:11 Total Visit Minutes 29 OT Pain Assessment Pain When Pain Assessed At Rest Pain Present Pain Present Denied Pain M4 OT- IP ADL's Start: 05/18/22 16:19 Freq: Status: Active Protocol: Document 05/18/22 16:20 CGR (Rec: 05/18/22 16:34 CGR [id number]) OT [id number] Comments OT Self-Feeding Comments not meal time OT ADL-Grooming General Evaluation Grooming Ability Standby Assistance Areas Needing Assistance Face Washing Comments OT Grooming Comments sitting in chair OT ADL-Oral Care Comments Oral Care Comments not performed OT ADL-Dressing General Eval Lower Body Dressing Ability Moderate Assistance Areas Needing Assistance Underpants/Brief Comments OT Dressing Comments Pt needed mod a for threading of brief OT ADL-Toileting General Evaluation Toileting Ability Moderate Assistance Areas Needing Assistance Manage Clothing,Perform Perineal Hygiene Comments OT Toileting Comments Pt with diarrhea and needed assist for throughness. OT ADL-Bathing Comments OT Bathing Comments not performed M5 OT- IP IADL's Start: 05/18/22 16:19 Freq: Status: Active Protocol: Document 05/18/22 16:20 CGR (Rec: 05/18/22 16:34 CGR [id number]) OT-Instrumental Activities of Daily Living Deficits IADL Deficits Identified No Deficits Home Safety Awareness Awareness of Need for Assistance at Home Good Awareness Ability to Problem Solve Emergency Able to Problem Solve Situations Meal Preparation Meal Preparation Caregiver Provides Assist Technical Designer Technical Designer Caregiver Provides Assist M6 OT- IP Functional Cognition Start: 05/18/22 16:19 Freq: Status: Active Protocol: Document 05/18/22 16:20 CGR (Rec: 05/18/22 16:34 [facility] [id number]) Cognitive Factors Limiting Selfcare Function Cognitive Ability Level of Alertness Alert Patient Orientation Name,Age,Birthday,Month,Date, Year,Day of Week,Place, Situation Attention Span Ability Capable of Focused Attention, Unable to Sustain Attention Ability to Follow Commands Able to Follow One Step Commands with Increased Time, Able to Follow One Step Commands with Repetition Cognitive Comments Cognitive Assessment Comments Pt appears fatigued but may benefit from cog assessment for better understanding of her cognition. OT- Vision and Hearing OT- Hearing Assessment OT- Hearing Assessment WFL OT- Vision Assessment Visual Acuity WFL Visual Attentiveness WFL Occular Pursuits WFL Visual Convergence WFL M7 OT- IP Mobility and Balance Start: 05/18/22 16:19 Freq: Status: Active Protocol: Document 05/18/22 16:20 CGR (Rec: 05/18/22 16:34 R [id number]) OT- Bed Mobility Assessment Supine to Sit Supine to Sit Assist Standby Assistance Scooting Scooting to Edge of Bed Minimal Assistance OT-Transfer Assessment Sit to and From Stand Sit to and from Stand Minimal Assistance Transfers Transfer Ability Contact Guard Assistance Technique Transfer Destination Bed,Chair,Toilet Transfer Technique Stand Step Pivot Devices Transfer Assistive Devices Gait Belt,Front Wheeled Walker Comments Mobility Comments Pt ambulated up to the bathroom and returned to chair . OT- Balance Assessment Sitting Balance and Reactions Static Sitting Balance Ability Fair Dynamic Sitting Balance Ability Fair M8 OT- IP Objective Assessments Start: 05/18/22 16:19 Freq: Status: Active Protocol: Document 05/18/22 16:20 CGR (Rec: 05/18/22 16:34 R [id number]) OT Gross Range of Motion Upper Extremity Range of Motion Assessment Within Functional Limits ROM Impairments shlds 0-110 OT Strength Upper Extremity Strength Assessment Within Functional Limits Comments Strength Comments 4-/5 OT- Coordination Assessment Upper Extremity Finger to Nose Test Within Functional Limits Finger Tapping Test Within Functional Limits OT-Muscle Tone Assessment Muscle Tone WNL Yes OT Sensation Assessment Edema Edema Absent M9 OT- IP Assessment and Plan Start: 05/18/22 16:19 Freq: Status: Active Protocol: Document 05/18/22 16:20 CGR (Rec: 05/18/22 16:34 R [id number]) OT Summary Assessment and Plan Potential Rehabilitation Potential Excellent Analytic Complexity at Evaluation Moderate Summary OT Impairments Strength,Balance,Functional Cognition,Functional Mobility, Grooming,Dressing,Toileting, Bathing,Toilet Transfers, Shower Transfers,Activity Tolerance Progress Towards Goals Slow Progress due to Medical Issues Assessment Summary Pt presents as a moderate complexity evaluation s/p admit for fall, covid, nasal fx, rhabdo. Pt is mobilizing with min to CGA but needs assist with simple ADLs at this time. Pt will benefit from continued therapy services. Recommend d/c to SNF vs home at this time but pt is likely to progress to a safe home discharge. Goals Grooming Goal Independent Dressing Goal Independent Toileting Goal Independent Bathing Goal Independent Toilet Transfer Goal Independent Days to Meet Goals 10 Frequency of Treatment Frequency Of Treatment Once a Day Treatment Plan OT Treatment Plan ADL Training,Functional Cognition Training,Functional Mobility,Patient/Family Education,Discharge Planning Other Treatment Recommendations and Next ADls standing, shower if Treatment Focus endurance allows Discharge Recommendations OT Discharge Recommendations Home vs SNF Transportation Needs at Discharge Private Vehicle
[2022-05-18] MEDS: cefTRIAXone 1,000 MG in SODIUM CHLORIDE 0.9% 100 ML 200 MG IV (17:33)
[2022-05-18] MEDS: ATORVASTATIN 20 MG TABLET 40 MG PO (19:59)
[2022-05-19] VITALS (10 sets, daily range): BP systolic 154–185; BP diastolic 50–83; PULSE 61–73; RESP 14–20; TEMP 36.2–37.3; O2SAT 94–98
[2022-05-19] MEDS: SODIUM CHLORIDE 0.9% 1,000 ML 100 ML IV (02:33)
[2022-05-19] MEDS: LEVOTHYROXINE 50 MCG TABLET PO (05:49)
[2022-05-19 07:25] LABS: Add Manual Diff / Slide Review NO; Basophils Absolute Auto 0 /uL (0-100); Basophils Percent Auto 0.7 % (0-2); Eosinophils Absolute Auto 0 /uL (0-450); Eosinophils Percent Auto 1.6 % (2-4); Hematocrit 35.9 % (36-46); Hemoglobin 12.5 g/dL (12.0-16.0); Lymphocytes Absolute Auto 800 /uL (1100-4500); Lymphocytes Percent Auto 33.6 % (25-40); Mean Corpuscular HGB Conc 34.8 % (30-36); Mean Corpuscular Hemoglobin 31.9 PG (26-34); Mean Corpuscular Volume 91.8 fL (80-100); Monocytes Absolute Auto 400 /uL (0-900); Monocytes Percent Auto 16.2 % (3-14); Neutrophils Absolute Auto 1100 /uL (1500-7000); Neutrophils Percent Auto 47.9 % (50-75); Platelet Count 91 X10^3/uL (150-400); Red Blood Cell Count 3.91 X10^6/uL (4.0-5.2); Red Cell Distribution Width 12.6 % (11.6-14.8); White Blood Cell Count 2.4 X10^3/uL (4.5-11.0)
[2022-05-19 07:36] LABS: Blood Urea Nitrogen 8 mg/dL (7-17); Carbon Dioxide 23 mmol/L (22-32); Chloride 108 mmol/L (98-107); Estimated Glomerular Filt Rate > 60 mL/min (>60); Glucose 81 mg/dL (80-110); HEMOLYSIS < 15 (0-50); Magnesium 1.6 mg/dL (1.6-2.3); Sodium 138 mmol/L (137-145)
[2022-05-19 07:38] LABS: Potassium 2.6 mmol/L (3.4-5.1)
[2022-05-19] MEDS: lisinopriL 20 MG TABLET PO (09:09)
[2022-05-19] MEDS: MULTIVITAMIN 1 TABLET 1 TAB PO (09:09)
[2022-05-19] MEDS: CLOPIDOGREL 75 MG TABLET PO (09:09)
[2022-05-19] MEDS: PANTOPRAZOLE DR 40 MG TABLET PO ×2 (09:09→20:12)
[2022-05-19] MEDS: MAGNESIUM CHLORIDE 64 MG TABLET 128 MG PO (09:09)
[2022-05-19] MEDS: FOLIC ACID 1 MG TABLET PO (09:09)
[2022-05-19] MEDS: THIAMINE 100 MG TABLET PO (09:10)
[2022-05-19] MEDS: POTASSIUM CHLORIDE 20 MEQ TAB 40 MEQ PO (09:10)
[2022-05-19] MEDS: atenoloL 50 MG TABLET PO (09:10)
[2022-05-19] MEDS: ENOXAPARIN 40 MG/0.4 ML SYRINGE SUBCUT (09:10)
--- NOTE | 2022-05-19 12:21 | P.PN_ITS ---
Subjective Subjective Date Patient Seen: 05/19/22 Interval history: 77 F admitted with weakness secondary to COVID infection and UTI. More confused today but she states she feels stronger. She is not eating well, states she cant taste much. Denies chest pain, shortness of breath. Exam Vital Signs (past 8 hours): - 05/19/22 06:17 05/19/22 06:17 05/19/22 09:36 Temperature 98.8 F Pulse Rate 61 Respiratory Rate 20 Blood Pressure 154/64 H Pulse Oximetry 97 97 Oxygen Delivery Method Room Air Room Air Oxygen Flow Rate 0 05/19/22 09:36 05/19/22 11:59 Temperature 97.4 F L Pulse Rate 66 Respiratory Rate 16 Blood Pressure 180/78 H Pulse Oximetry 95 97 Oxygen Delivery Method Room Air Oxygen Flow Rate Oxygen Delivery Method Room Air Oxygen Flow Rate 0 Narrative Exam Narrative: General:? Patient is well developed and well nourished, in no distress at this time. More lethargic and distant. HEENT:? Normocephalic, ecchymosis around L eye medially. Moist mucous membranes. Neck: supple and symmetric, trachea is midline, no cervical adenopathy. Negative for JVD Chest:? Normal AP diameter and contour without kyphoscoliosis, no tachypnea, equal chest rise bilaterally. Lungs:? CTA b/l no wheezing rhonchi or rales. Cardio:?RRR no m/r/g. Abdomen: S NT ND. No CVA tenderness. Musculoskeletal:? Muscle strength and tone are equal within normal limits, no de formity. Extremities: No edema or joint effusions. No cyanosis or clubbing. Skin:? Pale,? Warm to touch,dry and intact without rashes, ulcerations or petechiae.?There is scattered bruising in her distal extremities, more prevalent on her left side than right. Neuro:? Alert and orientated x2, more lethargic today, sensation to touch intact in all extremities, no gross deficits noted of cranial nerves. Psych:? Patient has a well-kept appearance, appropriate affect, mental status attitude thought context and judgment are appropriate for age. Objective Labs Result Diagrams: 05/19/22 07:11 05/19/22 07:11 Labs: Laboratory Results - last 24 hr 05/19/22 05/19/22 07:11 07:11 WBC 2.4 L RBC 3.91 L Hgb 12.5 Hct 35.9 L MCV 91.8 MCH 31.9 MCHC 34.8 RDW 12.6 Plt Count 91 L Neut % (Auto) 47.9 L Lymph % (Auto) 33.6 [place] % (Auto) 16.2 H Eos % (Auto) 1.6 L Baso % (Auto) 0.7 Neut # (Auto) 1100 L Lymph # (Auto) 800 L [place] # (Auto) 400 Eos # (Auto) 0 Baso # (Auto) 0 Sodium 138 Potassium 2.6 L* Chloride 108 H Carbon Dioxide 23 BUN 8 Creatinine 0.57 Estimated GFR > 60 BUN/Creatinine Ratio 14.0 Glucose 81 Calcium 8.0 L Magnesium 1.6 PFSH Medical History (Updated 05/17/22 @ 20:33 by Joleen Andrade RN) Asthma Dyspepsia Frequent UTI Hypertension Hypothyroid Surgical History History of cataract surgery History of ventral hernia repair Family History Father Cancer Mother Hemorrhagic cerebrovascular accident (CVA) Sister Cancer Daughter Optic nerve tumor Social History marital status: unknown household members: family Smoking Status: Never smoker alcohol intake: current substance use type: does not use Assessment & Plan Assessment & Plan narrative: 1. Rhabdomyoylsis, improved - will discontinue IV fluids today, Repeat CK tomorrow. - patient drinks wine daily, consider EtOH withdrawal seizure as well though not currently consistent with withdrawal. No further withdrawal symptoms today, will discontinue CIWA precautions. 2. Presumed ground level fall, weakness - PT/ OT evaluations - consider chronic EtOH use as a cause, possibly worsened in setting of COVID and acute cystitis. - Patient with multiple bruises in various stages over her body. During multiple encounters patient does state she feels safe at home, and given PT/OT evaluations and chronic EtOH use falls it is felt not likely elder abuse. 3. COVID 19 infection - continue symptomatic treatment as needed 4. Acute cystitis - continue ceftriaxone x3 days, cultures with GNB. 5. History of TIA - continue home plavix 6. nasal bone fracture - noted on CT face. Patient without symptoms, recommend outpatient follow up. 7. Hypokalemia - will replete, K 2.6 8. Metabolic encephalopathy. - likely a combination of UTI, and COVID 19. Continue above therapies, PT/OT. Patient more lethargic on 05/19 compared to prior days. - head CT on admission with atrophy, no acute changes. Code: Full as discussed with the patient Surrogate: patient's daughter Dispo: discharge home vs SNF, depending on progress with therapies. DVT: lovenox daily I have utilized all available immediate resources to obtain, update, or review the patient's current medications. Time Spent With Patient Critical Care time: I spent a total of [] minutes of critical care time on this patient's care today; this time is exclusive of procedural time. Quality VTE Deep Vein Thrombosis/Pulmonary Embolism Present on Admission: No
[2022-05-19] MEDS: cefTRIAXone 1,000 MG in SODIUM CHLORIDE 0.9% 100 ML 200 MG IV (17:20)
[2022-05-19] MEDS: ATORVASTATIN 20 MG TABLET 40 MG PO (20:12)
[2022-05-19] MEDS: ACETAMINOPHEN 325 MG TABLET 975 MG PO (23:07)
[2022-05-20 04:19] VITALS: BP 154/77; PULSE 63; RESP 18; TEMP 36.7; O2SAT 96
[2022-05-20] MEDS: LEVOTHYROXINE 50 MCG TABLET PO (06:32)
[2022-05-20 07:29] LABS: Add Manual Diff / Slide Review NO; Basophils Absolute Auto 0 /uL (0-100); Basophils Percent Auto 0.6 % (0-2); Eosinophils Absolute Auto 100 /uL (0-450); Eosinophils Percent Auto 2.5 % (2-4); Hematocrit 35.5 % (36-46); Hemoglobin 12.4 g/dL (12.0-16.0); Lymphocytes Absolute Auto 1000 /uL (1100-4500); Mean Corpuscular HGB Conc 34.8 % (30-36); Mean Corpuscular Hemoglobin 31.8 PG (26-34); Mean Corpuscular Volume 91.3 fL (80-100); Monocytes Absolute Auto 400 /uL (0-900); Monocytes Percent Auto 16.2 % (3-14); Neutrophils Absolute Auto 900 /uL (1500-7000); Neutrophils Percent Auto 37.7 % (50-75); Platelet Count 95 X10^3/uL (150-400); Red Blood Cell Count 3.89 X10^6/uL (4.0-5.2); Red Cell Distribution Width 12.5 % (11.6-14.8); White Blood Cell Count 2.3 X10^3/uL (4.5-11.0)
[2022-05-20 07:39] LABS: Creatine Kinase 387 U/L (30-135)
[2022-05-20 07:44] LABS: BUN Creatinine Ratio 13.1 (6-22); Blood Urea Nitrogen 8 mg/dL (7-17); Calcium 8.5 mg/dL (8.4-10.2); Carbon Dioxide 26 mmol/L (22-32); Chloride 105 mmol/L (98-107); Estimated Glomerular Filt Rate > 60 mL/min (>60); Glucose 90 mg/dL (80-110); HEMOLYSIS < 15 (0-50); Magnesium 1.7 mg/dL (1.6-2.3); Potassium 2.8 mmol/L (3.4-5.1); Sodium 139 mmol/L (137-145)
[2022-05-20 08:00] VITALS: BP 178/65; PULSE 59; RESP 16; TEMP 37.1; O2SAT 95
--- NOTE | 2022-05-20 08:07 | PC.NURSE ---
Late Entry: [facility] D/C documented per RN note
[2022-05-20] MEDS: PANTOPRAZOLE DR 40 MG TABLET PO (08:54)
[2022-05-20] MEDS: CLOPIDOGREL 75 MG TABLET PO (08:54)
[2022-05-20] MEDS: MULTIVITAMIN 1 TABLET 1 TAB PO (08:54)
[2022-05-20] MEDS: THIAMINE 100 MG TABLET PO (08:54)
[2022-05-20] MEDS: FOLIC ACID 1 MG TABLET PO (08:54)
[2022-05-20] MEDS: lisinopriL 20 MG TABLET PO (08:54)
[2022-05-20] MEDS: atenoloL 50 MG TABLET PO (08:54)
[2022-05-20] MEDS: ENOXAPARIN 40 MG/0.4 ML SYRINGE SUBCUT (08:55)
--- NOTE | 2022-05-20 09:23 | PC.NURSE ---
Addendum entered by Lauren Jameson R.N. 05/20/22 14:06: Patient is going to discharge to home and her grandson will be picking her up. Addendum entered by Lauren Jameson R.N. 05/20/22 12:51: Patient worked with occupational therapy earlier, and Drea did the slums test, she states that she got 20/30 and is having some memory issues. Patient does have some whine every day per pass down. She shows no symptoms of alcohol withdrawal. Eating lunch, in and did rounds are patient. Original Note: Assess- Patient is alert and oriented x2 to 3. She does have some minimal confusion. Patient with multiple bruises all over her body from falling. She has black eyes from fall and her nose has some dried blood. She answers questions slowly but seems oriented at most things. She is a one person assist with walker to use the bathroom. Ciwa score is O, and patients lung sounds are clear throughout. She is not on oxygen and sats are in the mid 90s. Resting up in the chair comfortably, patient has not eaten much of her breakfast.
--- NOTE | 2022-05-20 11:10 | OT.IP.TRT ---
Occupational Therapy Treatment Note M2 OT-IP Current Condition Start: 05/18/22 16:19 Freq: Status: Active Protocol: Document 05/18/22 16:20 CGR (Rec: 05/18/22 16:34 CGR [id number]) Occupational Therapy Current Condition Current Condition Evaluation Date 05/18/22 Treatment Diagnosis covid, fall, nasal fx, rhabdo Diagnosis Onset Date 05/18/22 M3 OT- IP Subjective and Pain Start: 05/18/22 16:19 Freq: Status: Active Protocol: Document 05/20/22 12:10 [facility] (Rec: 05/20/22 12:23 [facility] [id number]) OT- Subjective Occupational Therapy Visit Type Type Treatment Note Visit Start Time 10:30 Visit Stop Time 11:10 Total Visit Minutes 40 Occupational Therapy Visit Comments Patient Comments Pt agreed to work with OT. Patient/Caregiver Goals TO go home. OT Pain Assessment Pain When Pain Assessed At Rest Pain Present Pain Present Denied Pain M4 OT- IP ADL's Start: 05/18/22 16:19 Freq: Status: Active Protocol: Document 05/20/22 12:10 [facility] (Rec: 05/20/22 12:23 [facility] [id number]) OT [id number] Comments OT Self-Feeding Comments not meal time OT ADL-Grooming General Evaluation Grooming Ability Standby Assistance Areas Needing Assistance Retrieving/Set-up of Grooming Items Comments OT Grooming Comments able to do while standing with FWW OT ADL-Oral Care General Eval Oral Care Ability Independent OT ADL-Dressing General Eval Lower Body Dressing Ability Contact Guard Assistance Comments OT Dressing Comments CGA for balance while pt able to pill up and down her brief. OT ADL-Toileting General Evaluation Toileting Ability Contact Guard Assistance Areas Needing Assistance Manage Clothing Comments OT Toileting Comments Assist for balance while puling up and down her brief. OT ADL-Bathing Comments OT Bathing Comments not performed, suggested best for pt to get a shower chair for home use and HHSP M5 OT- IP IADL's Start: 05/18/22 16:19 Freq: Status: Active Protocol: Document 05/20/22 12:10 [facility] (Rec: 05/20/22 12:23 [facility] [id number]) OT-Instrumental Activities of Daily Living Home Safety Awareness Ability to Problem Solve Emergency Able to Problem Solve Situations M6 OT- IP Functional Cognition Start: 05/18/22 16:19 Freq: Status: Active Protocol: Document 05/20/22 12:10 [facility] (Rec: 05/20/22 12:23 [facility] [id number]) Cognitive Factors Limiting Selfcare Function Cognitive Tests SLUMS Pt scored 20/30 which implies cognitive deficits, but her score may be affected by a possible fall as noted bruise on her face. Pt states she feels that she is not thinking as well as she usually does. Pt not aware of the day of the week, only able to recall 8 animals in one minutes, able to recall 2/5 objects after time passed, not able to states a four digit number backwards, and able to answer 2/4 questions right after paragraph read. Cognitive Comments Cognitive Assessment Comments Pt able to home safety questions with 80% accuracy. Pt had good awareness for stating that she want sot get a BSC in addition to a FWW for home use. M7 OT- IP Mobility and Balance Start: 05/18/22 16:19 Freq: Status: Active Protocol: Document 05/20/22 12:10 [facility] (Rec: 05/20/22 12:23 [facility] [id number]) OT-Transfer Assessment Sit to and From Stand Sit to and from Stand Standby Assistance Transfers Transfer Ability Standby Assistance,Contact Guard Assistance,Minimal Assistance Technique Transfer Destination Chair,Toilet Devices Transfer Assistive Devices None,Gait Belt,Front Wheeled Walker Comments Mobility Comments Pt close SBA with FWW and occasional CGA. without use of FWW pt needing CGA and NURYS for her balance and unsteady o her feet. OT- Balance Assessment Sitting Balance and Reactions Static Sitting Balance Ability Good Dynamic Sitting Balance Ability Good Standing Balance and Reactions Static Standing Balance Ability Fair M8 OT- IP Objective Assessments Start: 05/18/22 16:19 Freq: Status: Active Protocol: Document 05/18/22 16:20 [facility] (Rec: 05/18/22 16:34 [facility] [id number]) OT Gross Range of Motion Upper Extremity Range of Motion Assessment Within Functional Limits ROM Impairments shlds 0-110 OT Strength Upper Extremity Strength Assessment Within Functional Limits Comments Strength Comments 4-/5 OT- Coordination Assessment Upper Extremity Finger to Nose Test Within Functional Limits Finger Tapping Test Within Functional Limits OT-Muscle Tone Assessment Muscle Tone WNL Yes OT Sensation Assessment Edema Edema Absent M9 OT- IP Assessment and Plan Start: 05/18/22 16:19 Freq: Status: Active Protocol: Document 05/20/22 12:10 [facility] (Rec: 05/20/22 12:23 [facility] [id number]) OT Summary Assessment and Plan Potential Rehabilitation Potential Excellent Analytic Complexity at Evaluation Moderate Summary OT Impairments Strength,Balance,Functional Cognition,Functional Mobility, Grooming,Dressing,Toileting, Bathing,Toilet Transfers, Shower Transfers,Activity Tolerance Progress Towards Goals Progressing Toward Goals Assessment Summary Pt doing better today and able to get around with the FWW with close SBA to CGA. Pt scored 20/30 on the SLUMS which implied cognitive deficits and having more difficulty with her short term memory items. Pt states feels that she is having more trouble now with her thinking as prior pt states able to take her own medications, pay her bills, and take care of the animals outside. At this time would best due to decreased balance and cognition would be best to have someone 24/7 assist initially and have home health. Goals Grooming Goal Independent Dressing Goal Independent Toileting Goal Independent Bathing Goal Independent Toilet Transfer Goal Independent Days to Meet Goals 9 Frequency of Treatment Frequency Of Treatment Once a Day Treatment Plan OT Treatment Plan ADL Training,Functional Cognition Training,Functional Mobility,Patient/Family Education,Discharge Planning Other Treatment Recommendations and Next ADls standing, shower if Treatment Focus endurance allows Discharge Recommendations OT Discharge Recommendations Home with 24/7 Assist Available,Home Health Transportation Needs at Discharge Private Vehicle
--- NOTE | 2022-05-20 11:35 | CM.DPC ---
Addendum entered by Mckayla Christensen R.N. 05/20/22 13:31: PREM faxed d/c summary to Kacie MARY. [facility] on the way to come picker packer pt. Mckayla Christensen RN/PREM Original Note: DCP Cont.: DCP spoke with OT this morning regarding pt progress. Per OT, they are recommending home with home health. OT verbalized that patient is in agreement. Pt states that she is concerned about who will be able to stay at home with her while she recovers post hospital stay. DCP to contact grandson. DCP spoke with grandson regarding home health and grandson agrees that would be a good option. Grandson states that he has been in contact with his mother and uncle and that the his uncle has driven up from [place] and will be able to stay with pt for recovery. Grandson states that his mother will be able to come closer to the end of the month to stay. Grandson states that he has four more days off of work and that his job is flexible with helping him take days off. Grandson wondering when pt will be discharged. DCP unsure and could not give definitive answer but verbalized that it could be today or tomorrow pending MD evaluation today. Grandson thankful for the call and will keep in touch with DCP if he has any other questions or concerns. P: Once pt is medically stable for discharge, pt to discharge home with home health via grandchelsie POV. Mckayla Christensen RN/PREM
[2022-05-20] MEDS: POTASSIUM CHLORIDE 20 MEQ TAB 40 MEQ PO (12:07)
[2022-05-20] MEDS: MAGNESIUM CHLORIDE 64 MG TABLET 128 MG PO (12:07)
[2022-05-20 12:19] VITALS: BP 180/70; PULSE 51; RESP 15; TEMP 36.8; O2SAT 96
--- NOTE | 2022-05-20 13:10 | P.DS_ITS ---
History of Present Illness History of Present Illness Date Patient Seen: 05/20/22 Chief complaint: generalized weakness, ? black eye Narrative: This is a 77-year-old female with a past medical history of hypertension, asthma, hypothyroidism, and prior TIA who was brought in by EMS after her grandson called for worsening weakness and a bruise on her face that was new.? The patient denies any current complaints including pain, shortness of breath, though does endorse she is quite weak.? She denies any overt falls.? She states that she woke up this morning with the bruise on her face and does not recall how it got there.? She woke up in her bed and had not soiled herself and there were no apparent stains in her bedroom.? She denies any chest pain, shortness of breath.? She does note a cough that started a couple of days ago.? She has been feeling weak for about 3 days now.? She denies any fevers or chills, abdominal pain, dysuria, but may have had some urinary frequency.? She had a loose stool while she was in the emergency room but no prior diarrhea or constipation.? She received the Jose and Jose COVID vaccine, but no boosters. In the emergency room, her CBC was notable for a mild leukopenia and thrombocytopenia at 4.3, and 117 respectively.? Chemistries revealed a mild hypokalemia with potassium of 3.3, mild elevation in her AST at 81 likely secondary to rhabdomyolysis given her CK of 1486.? Troponin was negative.? ProBNP was within normal limits.? Procalcitonin was within normal limits at 0.10.? Urinalysis was grossly positive with positive nitrites and many bacteria and was reflex for culture.? Urine drug screen was negative.? COVID-19 testing was positive.? Patient was admitted under observation status given her weakness, frequent falls, and rhabdomyolysis. Discharge Providers Provider Date of admission: 05/17/22 16:36 Discharge Date: 05/20/22 Primary care physician: Alia Brown PA-C Consults: 05/17/22 15:00 Consult to Physical Therapy Evaluate & Treat Comment: Physician Instructions: Evaluate and Treat 05/17/22 18:12 Consult to [employer] Waste Land[employer] Technician Routine Comment: consider APS referral, multiple bruises denial 05/18/22 14:05 Consult to Occupational Therapy Evaluate & Treat Comment: Physician Instructions: Evaluate and treat 05/20/22 11:42 Consult to Home Health Routine Comment: Reason For Exam: Evaluate and treat- RN, PT, OT, Bath aide Discharge provider: Alfreda Mejias MD Summary Hospital Course Discharge Diagnosis: 1. Covid -19 Pneumonia 2. Generalized Weakness 3. Rhabdomyolysis 4. Asthma 5. Hypertension 6. Hypothryoidism 7. GERD 8. Urinary Tract Infection Hospital Course: Patient was admitted to the hospital for generalized weakness, falls, Covid-19 pneumonia and a urinary tract infection. She did not require oxygen was treated symptomatically, and treated for a UTI. She was seen by PT and felt to be a max one person assist. Although still weak she felt significantly improved since admission. She had an episode of confusion which resolved. She made slow but steady progress and was deemed appropriate to discharge home with Home Health Nursing, PT, OT Patient had no issues on the day of discharge. Status at Discharge Cognitive/behavioral status at discharge: at baseline, confused Functional status at discharge: uses cane/walker Overall status at discharge: patient is progressing back to baseline Exam Vital Signs (past 8 hours): - 05/20/22 08:00 05/20/22 09:15 05/20/22 12:19 Temperature 98.7 F 98.2 F Pulse Rate 59 L 51 L Respiratory Rate 16 15 Blood Pressure 178/65 H 180/70 H Pulse Oximetry 95 96 Oxygen Delivery Method Room Air Oxygen Flow Rate 0 0 Oxygen Delivery Method Room Air Oxygen Flow Rate 0 Narrative Exam Narrative: elderly female sitting in a chair in no acute distress Resp Other: LUngs: decreased breath sounds with basilar crackles bilaterally Cardio Other: CV: RRR nl Sl S2 2/6 OLLIE GI Other: Abd; soft/ non tender/non distended Extrem Other: no edema Objective Labs Result Diagrams: 05/20/22 07:00 05/20/22 07:00 Labs: Laboratory Results - last 24 hr 05/20/22 05/20/22 05/20/22 07:00 07:00 07:00 WBC 2.3 L RBC 3.89 L Hgb 12.4 Hct 35.5 L MCV 91.3 MCH 31.8 MCHC 34.8 RDW 12.5 Plt Count 95 L Neut % (Auto) 37.7 L Lymph % (Auto) 43.0 H Mccreary % (Auto) 16.2 H Eos % (Auto) 2.5 Baso % (Auto) 0.6 Neut # (Auto) 900 L Lymph # (Auto) 1000 L Mccreary # (Auto) 400 Eos # (Auto) 100 Baso # (Auto) 0 Sodium 139 Potassium 2.8 L Chloride 105 Carbon Dioxide 26 BUN 8 Creatinine 0.61 Estimated GFR > 60 BUN/Creatinine Ratio 13.1 Glucose 90 Calcium 8.5 Magnesium 1.7 Total Creatine Kinase 387 H D [facility] Medical History (Updated 05/17/22 @ 20:33 by Joleen Andrade RN) Asthma Dyspepsia Frequent UTI Hypertension Hypothyroid Surgical History History of cataract surgery History of ventral hernia repair Family History Father Cancer Mother Hemorrhagic cerebrovascular accident (CVA) Sister Cancer Daughter Optic nerve tumor Social History marital status: unknown household members: family Smoking Status: Never smoker alcohol intake: current substance use type: does not use Discharge Assessment & Plan Assessment and Plan Assessment: 1. Covid -19 Pneumonia 2. Generalized Weakness 3. Rhabdomyolysis 4. Asthma 5. Hypertension 6. Hypothryoidism 7. GERD 8. Urinary Tract Infection Plan of Treatment: discharge home Hold statin until CPK normalizes Discharge Plan Discharge Plan Patient Disposition: Home Discharge orders & Medications Prescriptions: Continued atenolol 50 MG tablet 50 mg PO QDAY Qty: 0 levothyroxine 50 mcg Tablet 50 mcg PO DAILY clopidogrel 75 mg tablet 1 tab PO DAILY Label Comments: Take 1 tablet (75 mg) by mouth daily. pantoprazole 40 mg tablet,delayed release (DR/EC) 1 tab PO BID lisinopril 10 mg tablet 20 mg PO DAILY estradiol [Yuvafem] 10 mcg tablet 1 tab VAGINAL DAILY Discontinued atorvastatin [Lipitor] 20 mg Tablet 40 mg PO BEDTIME Qty: 30 0RF Follow up/Referrals: Alia Brown PA-C [Primary Care Provider] - Discharge Health Status Multidrug resistant organism: No MDRO Diet/Activity/Treatments Diet: Low-sodium and Low-cholesterol Discharge Data Primary Care Provider: Alia Brown Attending Provider: Bora Cat VTE Deep Vein Thrombosis/Pulmonary Embolism Present on Admission: No
--- NOTE | 2022-05-20 14:20 | PT.IPTN ---
Physical Therapy Treatment Note M2 PT-IP Current Condition Start: 05/18/22 13:22 Freq: NEEDED Status: Discharge Protocol: Document 05/20/22 14:00 SP (Rec: 05/20/22 16:26 SP [id number]) Physical Therapy Current Condition Current Condition Evaluation Date 05/18/22 Treatment Diagnosis Covid; rhabdomyolysis; difficulty in walking Onset Date 05/17/22 M3 PT-IP Subjective Start: 05/18/22 13:22 Freq: NEEDED Status: Discharge Protocol: Document 05/20/22 14:00 SP (Rec: 05/20/22 16:26 SP [id number]) Subjective Physical Therapy Visit Type Type Treatment Note Visit Start Time 14:00 Visit Stop Time 14:20 Total Visit Minutes 20 Notes Son arrived post tx, discussed support given throughout tx for home awareness. Told nursing pt requested COVID test pre DC for safety awareness for being around son at home. Son acquired FWW and BSC at [facility], picking up on way home from [place]. Number of FISH FRYER Visits 1 Physical Therapy Visit Comments Patient Comments Pt agreeable to working with therapy, go to the bathroom and step mgt for awareness DC. Patient Goals Going home with grandson assist her. Therapy Pain Assessment Pain Present Pain Present Denied Pain M4 PT-IP Mobility and Gait Start: 05/18/22 13:22 Freq: NEEDED Status: Discharge Protocol: Document 05/20/22 14:00 SP (Rec: 05/20/22 16:26 SP [id number]) PT-Transfer Assessment Sit to and From Stand Sit to and from Stand Standby Assistance,Contact Guard Assistance,Use of Upper Extremities Equipment Transfer Assistive Device None,Gait Belt,Front Wheeled Walker Orthotic/Prosthetic Devices or Brace: No Transfers Transfer Destination Chair,Toilet Transfer Technique ambulated w/ FWW, none. Transfer Ability Level of Assist Standby Assistance,Contact Guard Assistance,Minimal Assistance,1 Person Assistance ,Use of Upper Extremities Comments Mobility Comments Pt completed STS from chair, gait to bathroom CGA w/ FWW 10 ft, little unsteady pivot backing up to toilet, static stand self brief mgt CGA, Min A slow descent to toilet flopped last 1 to sit, cued for slow to sit for safety, she used grab bar on R and toilet seat with LUE. Self pericare in sitting, loose BM, required 5%A to stand using grab bar, Min A fully complete pericare in standing CGA while holding grab bar. FISH FRYER assisted removal and re don new brief when was sitting. Pt walked to sink using FWW SBA 12 ft, washed hands at sink SBA no UE support, gait across room no AD trunk sways Min A, provided FWW, SBA gait back to chair, 30 ft total. FISH FRYER recommended use of FWW at this time and son able to acquire one at [facility] for home use. Pt is ok to return home with [facility]06 available for safety, fall risk. Pt stated welcoming to recommendation HHPT for improved functional mobility strengthening back to baseline no AD PLOF. Gait Assessment Gait Gait Assistance Required: Standby Assistance,Contact Guard Assist,Minimum Assistance,1 Person Assist Distance (Feet) 42 Assistive Devices Assistive Device None,Gait Belt,Front Wheeled Walker Orthotic/Prosthetic Devices or Brace: No Gait Deviations General Gait Pattern Antalgic,Decreased Stride Length,Decreased Feet Clearance Factors Limiting Gait Function Factors Limiting Gait Function Decreased Activity Tolerance, Decreased Strength,Difficulty Following Directions,Poor Balance,Poor Safety Awareness Comments Gait Comments see mobility comments Stair Climbing Assessment Evaluation Level of Assist On Stairs Contact Guard Assistance, Minimal Assistance,1 Person Assistance Devices Stair Climbing Assistive Devices Left Railing,Right Railing Technique/Endurance Stair Climbing Direction Ascend and Descend Stair Climbing Technique Step to Step Number of Steps Climbed 1 Stair Climbing Set # Repetitions (reps) 3 Comments Stair Climbing Comments L HR at sink, R FWW positioned over portable step front sink , CG- 5%A step forward/back step x3 to assimulate home enterance of BHR. PT-Balance Assessment Sitting Balance and Reactions Static Sitting Balance Ability Good Dynamic Sitting Balance Ability Good Standing Balance and Reactions Static Standing Balance Ability Fair Dynamic Standing Balance Ability Poor Device Used without AD, Fair w/ FWW M5 PT-IP Objective Assessments Start: 05/18/22 13:22 Freq: NEEDED Status: Discharge Protocol: Document 05/20/22 14:00 SP (Rec: 05/20/22 16:26 SP [id number]) Orientation Orientation/Cognition Comments Improved quick to answer but soft voice. Cues for safety hand placement and proper use FWW CG- Min A during transfers. M6 PT-IP Treatment Start: 05/18/22 13:22 Freq: NEEDED Status: Discharge Protocol: Document 05/18/22 11:15 AB (Rec: 05/18/22 13:57 AB [id number]) Physical Therapy Treatment Education Education Provided Safety M7 PT-IP Assessment and Plan Start: 05/18/22 13:22 Freq: NEEDED Status: Discharge Protocol: Document 05/20/22 14:00 SP (Rec: 05/20/22 16:26 SP [id number]) PT Summary Assessment and Plan Potential Rehabilitation Potential Fair Status of Condition at Evaluation Evolving Summary Impairments Pain,ROM,Strength,Balance, Coordination,Sensation,Tone, Cognition,Bed Mobility, Transfers,Gait,Activity Tolerance Progress Towards Goals Progressing Toward Goals,Slow Progress due to Activity Tolerance Assessment Summary Pt CG- Min A throughout tx transfers, gait and step mgt with FWW, requires safety cues for proper hand placement and 1 person with her during mobility for safety support. Pt would benefit from HHPT for functional strengthening back to baseline of no AD and she was welcoming to HHPT. Pt is ok to return home with bernadette when medically cleared. Goals Bed Mobility Goal Independent Transfer Goal Standby Assistance,Front Wheeled Walker Gait Goal Standby Assistance,Front Wheel Walker Gait Distance 150 Other Goals improve ambulation without AD 150 ft SBA up/down 2 steps B rails SBA Days to Meet Goals 10 Frequency of Treatment Frequency Of Treatment Once a Day Treatment Plan Physical Therapy Treatment Plan Bed Mobility Training,Transfer Training,Gait Training, Therapeutic Exercise,Balance Retraining,Post Op Education, Discharge Planning,Hot or Cold Pack,Neuromuscular Re-ed, Coordination Retraining,Manual Therapy Other Recommendations and Next Treatment STS, transfers and gait w/ FWW Focus progressing to no AD when able, functional strengthening and balance activities. Precautions Other Precautions falls; Covid Recommendations To Nursing Amount of Assist Needed 1 Person Assist Discharge Recommendations PT Discharge Recommendations Home with 02/06 Assist Available,Home Health Equipment Needed for Home Before bernadette is acquiring FWW and Discharge BSC from [employer] in [place]. Transportation Needs at Discharge Private Vehicle
== END 2022-05-20 14:52 | disposition home or self-care (01) ==
LOC: ED 15:25 → AC 16:36
PROVIDERS: Admitting Provider Internal Medicine; Emergency Provider Emergency Medicine; PCP Physician Assistant Medical; Referring Provider Emergency Medicine; Visit Provider Internal Medicine
DX: U07.1 COVID-19 (principal); J12.82 Pneumonia due to coronavirus disease 2019; Z86.73 Personal history of transient ischemic attack (TIA), and cerebral infarction without residual deficits; E78.5 Hyperlipidemia, unspecified; I10 Essential (primary) hypertension; J45.909 Unspecified asthma, uncomplicated; E03.9 Hypothyroidism, unspecified; S00.12XA Contusion of left eyelid and periocular area, initial encounter; N30.90 Cystitis, unspecified without hematuria; M62.82 Rhabdomyolysis; K21.9 Gastro-esophageal reflux disease without esophagitis
CPT/HCPCS: 36415; 70450; 70486; 71045; 72125; 80048; 80053; 80305; 80320; 81001; 82550; 82553; 83605; 83735; 83880; 84145; 84484; 85025; 87040; 87077; 87086; 87186; 87635; 93005; 93010; 96361; 96365; 96366; 96372; 97162; 97166; 97530; 97535; 99284; C9803; G0378; J0696; J1650